=== PATIENT | male | born 1945 | race Caucasian/White ===

== ENCOUNTER 2018-08-31 19:12 | Inpatient (IN) ==
[2018-08-31] MEDS ORDERED: 0.9 % Sodium Chloride 1,000 ML IVC ONE (19:24)
--- NOTE | 2018-08-31 19:27 | Emergency Department Note ---
Disposition Clinical Impression: Altered mental status, Elevated troponin, Anemia, Febrile illness Disposition: Admitted As Inpatient Condition: Fair General Adult HPI - General Chief complaint: ED Altered Mental Status Stated complaint: confusion Time Seen by Provider: 08/31/18 19:18 Source: patient, family, EMS - History of Present Illness Pain Scale: 6 - Related Data Home Medications Medication Instructions Recorded Confirmed DiphenhydraMINE [Benadryl] 25 mg PO HS 08/31/18 08/31/18 Metformin HCl 1,000 mg PO BID 08/31/18 08/31/18 Pregabalin [Lyrica] 150 mg PO BID 08/31/18 08/31/18 RX: Ferrous Sulfate [Iron] 650 mg PO DAILY 08/31/18 08/31/18 RX: Finasteride [Proscar] 5 mg PO DAILY 08/31/18 08/31/18 RX: Levothyroxine [Synthroid] 75 mcg PO DAILY 08/31/18 08/31/18 RX: Loratadine [Allergy Relief] 10 mg PO DAILY 08/31/18 08/31/18 RX: Naproxen [Naprosyn] 250 mg PO Q12H PRN 08/31/18 08/31/18 RX: Omeprazole [PriLOSEC] 20 mg PO DAILY 08/31/18 08/31/18 RX: OxyCODONE/APAP 10/325 1 tab PO Q4H PRN 08/31/18 08/31/18 [Percocet 10/325 MG] RX: Simvastatin [Zocor] 20 mg PO HS 08/31/18 08/31/18 RX: predniSONE [PredniSONE] 5 mg PO BID 08/31/18 08/31/18 Allergies Allergy/AdvReac Type Severity Reaction Status Date / Time No Known Allergies Allergy Verified 08/31/18 19:22 Past Medical History - Past Medical History Medical history: Reports: cancer, other Psychiatric history: Reports: no psych history - Social History Smoking Status: Never smoker Alcohol use: Reports: none Drug use: Reports: none Physical Exam - General General appearance: alert, in no apparent distress Course Vital Signs Temperature 102.8 F H 08/31/18 19:14 Pulse Rate 97 08/31/18 19:14 Respiratory Rate 22 08/31/18 19:14 Blood Pressure 132/90 08/31/18 19:14 O2 Sat by Pulse Oximetry 100 08/31/18 19:14 Temperature 100.6 F H 08/31/18 20:40 Pulse Rate 82 08/31/18 22:25 Respiratory Rate 15 08/31/18 21:51 Blood Pressure 107/79 08/31/18 22:25 O2 Sat by Pulse Oximetry 99 08/31/18 21:51 Oxygen Delivery Oxygen Delivery Room Air Medical Decision Making - Lab Data Result diagrams: 08/31/18 19:21 08/31/18 19:21 Lab Results 08/31/18 08/31/18 08/31/18 Range/Units 19:21 19:21 19:21 WBC 13.4 H (4.3-11.1) K/mcL RBC 3.97 L (4.19-5.50) M/mcL Hgb 9.8 L (12.9-16.9) g/dL Hct 32.0 L (37.5-50.1) % MCV 80.6 L (83.0-100.0) fL MCH 24.7 L (28.0-33.3) pg MCHC 30.6 L (31.6-35.5) g/dL RDW 17.6 H (11.5-14.5) % Plt Count 418 H (140-400) K/mcL MPV 10.3 (9.4-12.4) fL Immature Gran % 0.5 (0-4) % Seg Neutrophils % 81.1 % Lymphocytes % 6.9 % Monocytes % 10.5 % Eosinophils % 0.6 % Basophils % 0.4 % Neutrophils # 10.9 H (1.6-8.9) K/mcL Lymphocytes # 0.9 (0.6-4.6) K/mcL Monocytes # 1.4 H (0.0-1.3) K/mcL Eosinophils # 0.1 (0.0-0.6) K/mcL Basophils # 0.1 (0.0-0.2) K/mcL Sodium 130 L (136-145) mEq/L Potassium 4.2 (3.5-5.1) mEq/L Chloride 93 L (98-107) mEq/L Carbon Dioxide 26 (23-29) mEq/L BUN 17 (8-23) mg/dL Creatinine 1.06 (0.70-1.30) mg/dL Est GFR ( Amer) > 60 (> 60) Est GFR (Non-Af Amer) > 60 (> 60) BUN/Creatinine Ratio 16 (6-26) Glucose 122 H (70-105) mg/dL Calculated Osmolality 273 L (280-300) Lactic Acid 1.2 (0.5-2.2) mmol/L Calcium 9.2 (8.6-10.3) mg/dL Total Bilirubin 0.4 (0.3-1.0) mg/dL Direct Bilirubin 0.0 (0.0-0.2) mg/dL Indirect Bilirubin 0.4 (0.0-1.2) mg/dL AST 18 (13-39) Units/L ALT 14 (7-52) Units/L Alkaline Phosphatase 110 H (34-104) Units/L Troponin I 0.04 H* (< 0.04) ng/mL Serum Total Protein 7.3 (6.4-8.9) g/dL Albumin 3.1 L (3.5-5.7) g/dL Globulin 4.2 H (2.4-3.5) g/dL Albumin/Globulin Ratio 0.7 L (1.1-2.2) TSH 4.305 (0.340-5.600) mcIU/mL Urine Color (Yellow) Urine Clarity (Clear) Urine pH (5.0-8.0) pH Units Ur Specific [place] (1.010-1.025) Urine Protein (Neg-Trace) mg/dL Urine Glucose (UA) (Normal) mg/dL Urine Ketones (Negative) mg/dL Urine Blood (Negative) Urine Nitrite (Negative) Urine Bilirubin (Negative) Urine Urobilinogen (Normal) mg/dL Ur Leukocyte Esterase (Negative) Urine Microscopic RBC (0-3) per hpf Urine Microscopic WBC (0-3) per hpf Ur Squamous Epith Cells (None-Few) per lpf Urine Bacteria (None-Few) per hpf Hyaline Casts (None-Few) per lpf Ur Culture Indicated? (NO) Stool Occult Bld Scrn (Negative) 08/31/18 08/31/18 Range/Units 20:03 21:00 WBC (4.3-11.1) K/mcL RBC (4.19-5.50) M/mcL Hgb (12.9-16.9) g/dL Hct (37.5-50.1) % MCV (83.0-100.0) fL MCH (28.0-33.3) pg MCHC (31.6-35.5) g/dL RDW (11.5-14.5) % Plt Count (140-400) K/mcL MPV (9.4-12.4) fL Immature Gran % (0-4) % Seg Neutrophils % % Lymphocytes % % Monocytes % % Eosinophils % % Basophils % % Neutrophils # (1.6-8.9) K/mcL Lymphocytes # (0.6-4.6) K/mcL Monocytes # (0.0-1.3) K/mcL Eosinophils # (0.0-0.6) K/mcL Basophils # (0.0-0.2) K/mcL Sodium (136-145) mEq/L Potassium (3.5-5.1) mEq/L Chloride (98-107) mEq/L Carbon Dioxide (23-29) mEq/L BUN (8-23) mg/dL Creatinine (0.70-1.30) mg/dL Est GFR ( Amer) (> 60) Est GFR (Non-Af Amer) (> 60) BUN/Creatinine Ratio (6-26) Glucose (70-105) mg/dL Calculated Osmolality (280-300) Lactic Acid (0.5-2.2) mmol/L Calcium (8.6-10.3) mg/dL Total Bilirubin (0.3-1.0) mg/dL Direct Bilirubin (0.0-0.2) mg/dL Indirect Bilirubin (0.0-1.2) mg/dL AST (13-39) Units/L ALT (7-52) Units/L Alkaline Phosphatase (34-104) Units/L Troponin I (< 0.04) ng/mL Serum Total Protein (6.4-8.9) g/dL Albumin (3.5-5.7) g/dL Globulin (2.4-3.5) g/dL Albumin/Globulin Ratio (1.1-2.2) TSH (0.340-5.600) mcIU/mL Urine Color Yellow (Yellow) Urine Clarity Cloudy A (Clear) Urine pH 7.0 (5.0-8.0) pH Units Ur Specific [place] 1.009 L (1.010-1.025) Urine Protein Negative (Neg-Trace) mg/dL Urine Glucose (UA) Normal (Normal) mg/dL Urine Ketones Negative (Negative) mg/dL Urine Blood Negative (Negative) Urine Nitrite Negative (Negative) Urine Bilirubin Negative (Negative) Urine Urobilinogen Normal (Normal) mg/dL Ur Leukocyte Esterase Negative (Negative) Urine Microscopic RBC 0-3 (0-3) per hpf Urine Microscopic WBC 0-3 (0-3) per hpf Ur Squamous Epith Cells None Seen (None-Few) per lpf Urine Bacteria None Seen (None-Few) per hpf Hyaline Casts None Seen (None-Few) per lpf Ur Culture Indicated? NO (NO) Stool Occult Bld Scrn Negative (Negative) Critical Care Time Critical Care Time: Yes Total Critical Care Time: 30 Attestation: The high probability of a clinically significant, sudden or life threatening det erioration of the [] system(s) required my full and direct attention, intervention and personal management. The aggregate critical care time was [] minutes. This time is in addition to time spent performing reported procedures but includes the following: [] Data Review and interpretation [] Patient assessment and monitoring of vital signs [] Documentation [] Medication orders and management Attestation Statement - Attestation Attestation: I examined this patient and my medical decision-making was reviewed with the Resident Physician. I agree with the documented findings, disposition and treatment plan as described except to the extent set forth below. Foyi-re-mhyi time provided Patient arrives by EMS from home. Additional history obtained from his son at bedside. The patient had a period of change in mentation. He is febrile upon arrival. He is alert and lucid. Sepsis workup initiated
--- NOTE | 2018-08-31 19:36 | Emergency Department Note ---
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 Original Note: Disposition Clinical Impression: Elevated troponin, Febrile illness Altered mental status Qualifiers: Altered mental status type: unspecified Qualified Code(s): R41.82 - Altered mental status, unspecified Anemia Qualifiers: Anemia type: unspecified type Qualified Code(s): D64.9 - Anemia, unspecified Disposition: Admitted As Inpatient Condition: Fair Referrals: NONE,PCP [Primary Care Provider] - Forms: ED Satisfaction Letter Time of Disposition: 20:59 General Adult HPI - General Chief complaint: ED Altered Mental Status Stated complaint: confusion Time Seen by Provider: 08/31/18 19:18 Source: patient, family, EMS Mode of arrival: EMS Limitations: no limitations Nursing Notes Reviewed: Yes Vital Signs Reviewed: Yes - History of Present Illness HPI Narrative: 72-year-old male with a history of malignancy on clinical trial at [facility] every other week for therapy presents for evaluation of confusion. Presents in the care of the son. Son describes a symptom as the patient acting confused but alert for proximally 2 hours prior to ED arrival. States the patient was having some shaking of his right hand that has since resolved. States that this lasted 2 hours does have a history of prior episodes in the past. Patient is not from around the area. Patient states that he felt hot and cold. Patient denies any chest pain cough upper respiratory symptoms. Patient denies any abdominal pain. No problems urinating. No rashes. Patient's been taking his medication as prescribed with no recent changes. Patient is on prednisone 5 mg daily. Patient as well as family are unaware of the exact etiology of the malignancy. Pain Scale: 6 - Related Data Allergies Allergy/AdvReac Type Severity Reaction Status Date / Time No Known Allergies Allergy Verified 08/31/18 19:22 All systems ED: reviewed and negative except as stated. Constitutional: Reports: fever Cardiovascular: Denies: chest pain Respiratory: Denies: cough, dyspnea Gastrointestinal: Denies: abdominal pain, nausea, vomiting Past Medical History - Past Medical History Attestation: Yes The following information was validated with the patient. Source: patient Medical history: Reports: cancer, other Psychiatric history: Reports: no psych history - Social History Smoking Status: Never smoker Alcohol use: Reports: none Drug use: Reports: none Physical Exam - General Limitations: no limitations General appearance: alert, in no apparent distress - Head Head exam: atraumatic, normocephalic, normal inspection - Eye Eye exam: Present: normal appearance, PERRL, EOMI. Absent: scleral icterus - ENT ENT exam: normal exam, mucous membranes dry - Neck Neck exam: Present: normal inspection - Chest Chest inspection: Present: normal inspection, symmetric chest wall rise - Respiratory Respiratory exam: Present: normal lung sounds bilaterally. Absent: respiratory distress - Cardiovascular Cardiovascular exam: Present: normal rhythm, tachycardia. Absent: systolic murmur - Abdominal Exam Abdominal exam: Present: soft, Non-Tender - Extremities Exam Extremities exam: Present: normal inspection, pedal edema (Significant asymmetric right-sided pitting edema. Son states been present for approximately 3 years with plans of amputation in the future.) - Back Exam Back exam: Present: normal inspection. Absent: tenderness - Neurological Exam Neurological exam: Present: alert, oriented X3, CN II-XII intact - Skin Skin exam: Present: warm, dry, intact, normal color. Absent: rash Course Course Narrative: Patient seen and examined. Patient will need an extended septic workup for concerns of infection given the abnormal vitals and fever. Patient's also immunocompromise with daily steroid use. Etiology of the patient's malignancy is unknown. Disposition will likely be admission. - Reevaluation(s) Reevaluation #1: Given the patient's possibility of immunocompromise with his cancer therapy. Pa tient will be covered for broad-spectrum antibiotics with concerns of infection in the setting of fever. Patient will be given antibiotics until culture negative. Attempted to gather records of the patient's past medical history. Time: 20:49 Reevaluation #2: Patient seen and examined. Patient's abnormal labs discussed at bedside. Patient denies any blood in his stool or dark tarry stools are states he is on iron. Patient on any blood thinners. Given the patient's abnormal vitals concerns for sepsis the patient will be admitted to the hospital service. Patient's alert and oriented confusion has resolved. Time: 20:56 Vital Signs Temperature 102.8 F H 08/31/18 19:14 Pulse Rate 97 08/31/18 19:14 Respiratory Rate 22 08/31/18 19:14 Blood Pressure 132/90 08/31/18 19:14 O2 Sat by Pulse Oximetry 100 08/31/18 19:14 Temperature 100.6 F H 08/31/18 20:40 Pulse Rate 99 08/31/18 20:39 Respiratory Rate 22 08/31/18 19:14 Blood Pressure 130/85 08/31/18 20:39 O2 Sat by Pulse Oximetry 98 08/31/18 20:39 Oxygen Delivery Oxygen Delivery Room Air Medical Decision Making - MDM Narrative Medical decision making narrative: 72-year-old male persists for evaluation of intermittent confusion that occurred earlier today. History provided via the son at bedside. Patient is alert and oriented and back to baseline currently. Son describes a 2 hour labs with the patient was alert but confused shaking his right arm. No rhythmic shaking her seizures noted. Patient did have abnormal vitals and concerns for sepsis with a fever. Patient had extensive evaluation for concerns of sepsis and immunocompromise given his history of malignancy. Patient is a known primary malignancy currently receiving therapy at [facility]. Patient had his therapy approximately week ago was scheduled therapy in the next week. Given the patient's fever and concerns were immunocompromise the patient was covered broad-spectrum antibiotics. Several abnormal labs with no prior comparison. Denying any blood in the stool or dark tarry stools. Patient does have an elevated troponin with no ST segment elevation. Given an aspirin. Patient will be admitted to hospital service for continued evaluated and monitoring. Another possible source of infection is the patient's right lower ext however the patient's son states that it is been that swollen and that appearance for approximately 3 years. - Lab Data Lab results reviewed: Yes I reviewed the patient's lab results. Result diagrams: 08/31/18 19:21 08/31/18 19:21 Lab Results 08/31/18 08/31/18 08/31/18 Range/Units 19:21 19:21 19:21 WBC 13.4 H (4.3-11.1) K/mcL RBC 3.97 L (4.19-5.50) M/mcL Hgb 9.8 L (12.9-16.9) g/dL Hct 32.0 L (37.5-50.1) % MCV 80.6 L (83.0-100.0) fL MCH 24.7 L (28.0-33.3) pg MCHC 30.6 L (31.6-35.5) g/dL RDW 17.6 H (11.5-14.5) % Plt Count 418 H (140-400) K/mcL MPV 10.3 (9.4-12.4) fL Immature Gran % 0.5 (0-4) % Seg Neutrophils % 81.1 % Lymphocytes % 6.9 % Monocytes % 10.5 % Eosinophils % 0.6 % Basophils % 0.4 % Neutrophils # 10.9 H (1.6-8.9) K/mcL Lymphocytes # 0.9 (0.6-4.6) K/mcL Monocytes # 1.4 H (0.0-1.3) K/mcL Eosinophils # 0.1 (0.0-0.6) K/mcL Basophils # 0.1 (0.0-0.2) K/mcL Sodium 130 L (136-145) mEq/L Potassium 4.2 (3.5-5.1) mEq/L Chloride 93 L (98-107) mEq/L Carbon Dioxide 26 (23-29) mEq/L BUN 17 (8-23) mg/dL Creatinine 1.06 (0.70-1.30) mg/dL Est GFR ( Amer) > 60 (> 60) Est GFR (Non-Af Amer) > 60 (> 60) BUN/Creatinine Ratio 16 (6-26) Glucose 122 H (70-105) mg/dL Calculated Osmolality 273 L (280-300) Lactic Acid 1.2 (0.5-2.2) mmol/L Calcium 9.2 (8.6-10.3) mg/dL Total Bilirubin 0.4 (0.3-1.0) mg/dL Direct Bilirubin 0.0 (0.0-0.2) mg/dL Indirect Bilirubin 0.4 (0.0-1.2) mg/dL AST 18 (13-39) Units/L ALT 14 (7-52) Units/L Alkaline Phosphatase 110 H (34-104) Units/L Troponin I 0.04 H* (< 0.04) ng/mL Serum Total Protein 7.3 (6.4-8.9) g/dL Albumin 3.1 L (3.5-5.7) g/dL Globulin 4.2 H (2.4-3.5) g/dL Albumin/Globulin Ratio 0.7 L (1.1-2.2) TSH 4.305 (0.340-5.600) mcIU/mL Urine Color (Yellow) Urine Clarity (Clear) Urine pH (5.0-8.0) pH Units Ur Specific [place] (1.010-1.025) Urine Protein (Neg-Trace) mg/dL Urine Glucose (UA) (Normal) mg/dL Urine Ketones (Negative) mg/dL Urine Blood (Negative) Urine Nitrite (Negative) Urine Bilirubin (Negative) Urine Urobilinogen (Normal) mg/dL Ur Leukocyte Esterase (Negative) Urine Microscopic RBC (0-3) per hpf Urine Microscopic WBC (0-3) per hpf Ur Squamous Epith Cells (None-Few) per lpf Urine Bacteria (None-Few) per hpf Hyaline Casts (None-Few) per lpf Ur Culture Indicated? (NO) 08/31/18 Range/Units 20:03 WBC (4.3-11.1) K/mcL RBC (4.19-5.50) M/mcL Hgb (12.9-16.9) g/dL Hct (37.5-50.1) % MCV (83.0-100.0) fL MCH (28.0-33.3) pg MCHC (31.6-35.5) g/dL RDW (11.5-14.5) % Plt Count (140-400) K/mcL MPV (9.4-12.4) fL Immature Gran % (0-4) % Seg Neutrophils % % Lymphocytes % % Monocytes % % Eosinophils % % Basophils % % Neutrophils # (1.6-8.9) K/mcL Lymphocytes # (0.6-4.6) K/mcL Monocytes # (0.0-1.3) K/mcL Eosinophils # (0.0-0.6) K/mcL Basophils # (0.0-0.2) K/mcL Sodium (136-145) mEq/L Potassium (3.5-5.1) mEq/L Chloride (98-107) mEq/L Carbon Dioxide (23-29) mEq/L BUN (8-23) mg/dL Creatinine (0.70-1.30) mg/dL Est GFR ( Amer) (> 60) Est GFR (Non-Af Amer) (> 60) BUN/Creatinine Ratio (6-26) Glucose (70-105) mg/dL Calculated Osmolality (280-300) Lactic Acid (0.5-2.2) mmol/L Calcium (8.6-10.3) mg/dL Total Bilirubin (0.3-1.0) mg/dL Direct Bilirubin (0.0-0.2) mg/dL Indirect Bilirubin (0.0-1.2) mg/dL AST (13-39) Units/L ALT (7-52) Units/L Alkaline Phosphatase (34-104) Units/L Troponin I (< 0.04) ng/mL Serum Total Protein (6.4-8.9) g/dL Albumin (3.5-5.7) g/dL Globulin (2.4-3.5) g/dL Albumin/Globulin Ratio (1.1-2.2) TSH (0.340-5.600) mcIU/mL Urine Color Yellow (Yellow) Urine Clarity Cloudy A (Clear) Urine pH 7.0 (5.0-8.0) pH Units Ur Specific [place] 1.009 L (1.010-1.025) Urine Protein Negative (Neg-Trace) mg/dL Urine Glucose (UA) Normal (Normal) mg/dL Urine Ketones Negative (Negative) mg/dL Urine Blood Negative (Negative) Urine Nitrite Negative (Negative) Urine Bilirubin Negative (Negative) Urine Urobilinogen Normal (Normal) mg/dL Ur Leukocyte Esterase Negative (Negative) Urine Microscopic RBC 0-3 (0-3) per hpf Urine Microscopic WBC 0-3 (0-3) per hpf Ur Squamous Epith Cells None Seen (None-Few) per lpf Urine Bacteria None Seen (None-Few) per hpf Hyaline Casts None Seen (None-Few) per lpf Ur Culture Indicated? NO (NO) - Radiology Data Radiology results reviewed: Yes I reviewed the patient's radiology results. Head CT 08/31/18 19:33 IMPRESSION: No acute intracranial abnormality. D/ / Hieu Mcknight MD / Hieu Mcknight MD Interpreting Provider: Hieu Mcknight MD Chest X-Ray 08/31/18 19:25 IMPRESSION: 1. 2.2 cm right parahilar nodule and questionable smaller left parahilar nodules. Recommend further evaluation with CT chest. 2. Mild nonspecific right infrahilar hazy opacities. D/ / Adam Penaloza MD / Adam Penaloza MD Interpreting Provider: Adam Penaloza MD Head CT 08/31/18 19:33 IMPRESSION: No acute intracranial abnormality. D/ / Hieu Mcknight MD / Hieu Mcknight MD Interpreting Provider: Hieu Mcknight MD - EKG Data EKG #1 EKG attestation: Yes I reviewed and interpreted this EKG. EKG shows normal: sinus rhythm Rate: normal Rhythm: NSR [place]/QRS: normal Interpretation: no acute changes, nonspecific ST-T wave changes S.Tara.Nayely - Shay Situation: Demographics Background: Presenting Complaint Assessment: Vital Signs, Course and respsone to treatment, Patient/Family Expectation Recommendation: Barrier(s) to disposition, Recommendation based on pending st udies, treatments, or consults S.B.AClementine Report Given to: Dr. Barbie Day Repor Time: 21:10
[2018-08-31 19:45] LABS: Basophils # 0.1 K/mcL (0.0-0.2); Basophils % 0.4 %; Eosinophils # 0.1 K/mcL (0.0-0.6); Eosinophils % 0.6 %; Hemoglobin 9.8 g/dL (12.9-16.9); Immature Granulocytes % 0.5 % (0-4); Lymphocytes # 0.9 K/mcL (0.6-4.6); Lymphocytes % 6.9 %; Mean Corpuscular HGB Conc 30.6 g/dL (31.6-35.5); Mean Corpuscular Hemoglobin 24.7 pg (28.0-33.3); Mean Corpuscular Volume 80.6 fL (83.0-100.0); Mean Platelet Volume 10.3 fL (9.4-12.4); Monocytes # 1.4 K/mcL (0.0-1.3); Monocytes % 10.5 %; Neutrophils # 10.9 K/mcL (1.6-8.9); Platelet Count 418 K/mcL (140-400); Red Blood Count 3.97 M/mcL (4.19-5.50); Red Cell Distribution Width 17.6 % (11.5-14.5); Segmented Neutrophils % 81.1 %
[2018-08-31 20:02] LABS: Alanine Aminotransferase 14 Units/L (7-52); Albumin 3.1 g/dL (3.5-5.7); Albumin/Globulin Ratio 0.7 (1.1-2.2); Alkaline Phosphatase 110 Units/L (34-104); Aspartate Amino Transferase 18 Units/L (13-39); BUN/Creatinine Ratio 16 (6-26); Bilirubin,Indirect 0.4 mg/dL (0.0-1.2); Bilirubin,Total 0.4 mg/dL (0.3-1.0); Blood Urea Nitrogen 17 mg/dL (8-23); Calcium 9.2 mg/dL (8.6-10.3); Carbon Dioxide 26 mEq/L (23-29); Chloride 93 mEq/L (98-107); Globulin 4.2 g/dL (2.4-3.5); Glucose 122 mg/dL (70-105); Osmolality,Calculated 273 (280-300); Potassium 4.2 mEq/L (3.5-5.1); Sodium 130 mEq/L (136-145); Total Protein 7.3 g/dL (6.4-8.9); eGFR For Non-African Americans > 60 (> 60)
[2018-08-31 20:06] LABS: Troponin I 0.04 ng/mL (< 0.04)
[2018-08-31 20:12] LABS: Bilirubin,Urine Negative (Negative); Blood,Urine Negative (Negative); Clarity,Urine Cloudy (Clear); Color,Urine Yellow (Yellow); Glucose,Urine (UA) Normal (Normal); Ketones,Urine Negative (Negative); Leukocyte Esterase,Urine Negative (Negative); Nitrite,Urine Negative (Negative); Protein,Urine Negative (Neg-Trace); Specific Gravity,Urine 1.009 (1.010-1.025); Urobilinogen,Urine Normal (Normal)
[2018-08-31 20:15] LABS: Bacteria,Urine None Seen per hpf (None-Few); Hyaline Casts,Urine None Seen per lpf (None-Few); RBC,Urine 0-3 per hpf (0-3); Squamous Epithelial Cell,Urine None Seen per lpf (None-Few); WBC,Urine 0-3 per hpf (0-3)
[2018-08-31 20:16] LABS: Thyroid Stimulating Hormone 4.305 mcIU/mL (0.340-5.600)
[2018-08-31] MEDS ORDERED: *HR* OxyCODONE Immed Rel 5 MG TABLET PO ONE (20:30)
[2018-08-31] MEDS ORDERED: Aspirin 325 MG TABLET PO ONE (20:48)
[2018-08-31] MEDS ORDERED: Piperacillin/Tazobactam 3.375 GM in 0.9 % Sodium Chloride Mini Bag 100 ML IVPB ONE (20:48)
[2018-08-31] MEDS ORDERED: Isovue-370 500 ML INFUS..BTL IV ONE (20:58)
--- NOTE | 2018-08-31 22:22 | Internal Med History&Physical ---
Date of Encounter: 08/31/18 Time of Encounter: 22:09 Internal Medicine - H&P: HPI Chief complaint: AMS Admitted From: Home Plans for Post Hospital Care: Home History of present illness: Mert Freed is a 72-year-old man with an active malignancy currently undergoing a clinical trial at [facility] for chemotherapy. As per his son he was diagnosed about 6-7 years ago when living in [place] and in this past year was told that there were no further therapies for him but subsequently was able to be enrolled in this new trial. The son cannot specify what type of cancer he has but when the patient is asked specifically about lymphoma he says this is what it is. The patient is brought in by his son today with the complaint of confusion that started approximately 2 hours prior to arrival and generalized body shaking. The son stated that this happened about 3-4 months ago while living in [place] as he noticed he was incoherent on the phone and subsequently flew over to see him. He did not seek medical attention at the time but the son was able to put him back on his regular routine of medications and he gradually improved in the next 24 hours. Today the son says he was in his regular state of health up until dinnertime at which time the patient complained of being very cold and having chills and as time progressed he was notably more confused and with reduced responsiveness. On arrival to the ER he was febrile at 102.8F but the rest of his vitals were normal. Lab work showed a hemoglobin of 9.8, sodium 130, chloride 93, creatinine 1.06 and troponin of 0.04. We have no prior studies to compare with. The patient was given 1 L of normal saline, aspirin and acetaminophen. On reassessment his mental status had significantly improved and he was now back to baseline and conversant. The patient denies any abdominal pain, nausea, vomiting, headache, chest pain, diarrhea or dysuria. He states that he gets chemotherapy and [place] every 2 weeks and does not have an indwelling port. He is unable to explain why he felt the way he did earlier but does acknowledge being told in the recent past that his sodium was low; it was attributed to excessive water intake which she since decreased but there was no obvious change right now he feels dehydrated and thirsty. UA was unremarkable, head CT nonrevealing, chest x-ray showing a 2 cm right parahilar nodule which the patient states being monitored at his cancer center. Follow-up CT scan was contrast showed other nodules consistent with metastatic disease. Of note the patient also has a chronic issue with his right knee having undergone 2 knee replacements. It is now chronically swollen with erythema and other color changes as well as hyperkeratosis. He states he is scheduled for an [id number] amputation in [place] within the month. At this time it is unclear why the patient had a transient change in mental status or why he is febrile but has been started on empiric antibiotics given his high-risk state. Admit for further care. 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 - Social History Smoking Status: Never smoker Alcohol use: none Drug use: none Internal Medicine - H&P: Meds DiphenhydraMINE [Benadryl] 25 mg PO HS 08/31/18 [History] Ferrous Sulfate [Iron] 650 mg PO DAILY 08/31/18 [History] Finasteride [Proscar] 5 mg PO DAILY 08/31/18 [History] Levothyroxine [Synthroid] 75 mcg PO DAILY 08/31/18 [History] Loratadine [Allergy Relief] 10 mg PO DAILY 08/31/18 [History] Metformin HCl 1,000 mg PO BID 08/31/18 [History] Naproxen [Naprosyn] 250 mg PO Q12H PRN 08/31/18 [History] Omeprazole [PriLOSEC] 20 mg PO DAILY 08/31/18 [History] OxyCODONE/APAP 10/325 [Percocet 10/325 MG] 1 tab PO Q4H PRN 08/31/18 [History] Pregabalin [Lyrica] 150 mg PO BID 08/31/18 [History] Simvastatin [Zocor] 20 mg PO HS 08/31/18 [History] predniSONE [PredniSONE] 5 mg PO BID 08/31/18 [History] Allergy/AdvReac Type Severity Reaction Status Date / Time No Known Allergies Allergy Verified 08/31/18 19:22 All Systems PM: A 10-system review of systems was performed and is negative for pertinent findings except as documented above in the HPI. Family history reviewed and found noncontributory. - Constitutional Vitals: Temp Pulse Resp BP Pulse Ox 100.6 F H 85 15 120/73 99 08/31/18 20:40 08/31/18 21:51 08/31/18 21:51 08/31/18 21:51 08/31/18 21:51 Exam: Vitals: Reviewed General: Well-developed male lying comfortably in bed in no acute distress. Skin: Pale, slightly diaphoretic, warm. HEENT: Dry mucous membranes. + conjunctivae pallor. Oropharynx without exudate. Neck: Surgically resected right cervical lymph nodes with no inflammatory signs present but tenderness on palpation in the area. Chest: Normal thoracic expansion. Normal breath sounds. Clear to auscultation. Heart: Normal S1 & S2; rhythmic. No rubs or murmurs. Abdomen: Non-distended, soft and non-tender to palpation. No peritoneal reaction. Extremities: Right knee swollen, tender to touch, not hot, with hyperketatoric skin growths on the posterior aspect. Neurological: Awake, alert and oriented to person, place and time. No focal deficits. Psych: Affect appropriate. Internal Med - H&P Results - Labs CBC & Chem 7: 08/31/18 19:21 08/31/18 19:21 Labs: Short CBC 08/31/18 Range/Units 19:21 WBC 13.4 H (4.3-11.1) K/mcL Hgb 9.8 L (12.9-16.9) g/dL Hct 32.0 L (37.5-50.1) % Plt Count 418 H (140-400) K/mcL Neutrophils # 10.9 H (1.6-8.9) K/mcL BMP 08/31/18 19:21 Sodium 130 L Potassium 4.2 Chloride 93 L Carbon Dioxide 26 BUN 17 Creatinine 1.06 Glucose 122 H Calcium 9.2 Cardiac Enzymes 08/31/18 Range/Units 19:21 Troponin I 0.04 H* (< 0.04) ng/mL Liver Function 08/31/18 Range/Units 19:21 Total Bilirubin 0.4 (0.3-1.0) mg/dL Direct Bilirubin 0.0 (0.0-0.2) mg/dL AST 18 (13-39) Units/L ALT 14 (7-52) Units/L Alkaline Phosphatase 110 H (34-104) Units/L Albumin 3.1 L (3.5-5.7) g/dL Urine 08/31/18 Range/Units 20:03 Urine Color Yellow (Yellow) Urine Clarity Cloudy A (Clear) Urine pH 7.0 (5.0-8.0) pH Units Ur Specific [place] 1.009 L (1.010-1.025) Urine Protein Negative (Neg-Trace) mg/dL Urine Glucose (UA) Normal (Normal) mg/dL - Impressions ITS Impressions Chest X-Ray 08/31/18 19:25 IMPRESSION: 1. 2.2 cm right parahilar nodule and questionable smaller left parahilar nodules. Recommend further evaluation with CT chest. 2. Mild nonspecific right infrahilar hazy opacities. D/ / Adam Penaloza MD / Adam Penaloza MD Interpreting Provider: Adam Penaloza MD Head CT 08/31/18 19:33 IMPRESSION: No acute intracranial abnormality. D/ / Hieu Mcknight MD / Hieu Mcknight MD Interpreting Provider: Hieu Mcknight MD Chest CT 08/31/18 20:58 IMPRESSION: Trace bilateral pleural effusions, right larger than left. No acute lung parenchymal abnormalities. Multiple bilateral pulmonary nodules compatible with metastatic disease. Cardiomegaly with moderate pericardial effusion. 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 Atherosclerosis to include coronary artery disease. D/ : / 08/31/2018 21:48:50 Yoel Chavez MD / shemar Interpreting Provider: Yoel Chavez MD - Assessment and plan (1) Altered mental status Current Visit: Yes Status: Acute Assessment and plan: Unclear etiology; transient. Concern for sepsis given his fever and elevated WBC. No source identified. Mental status back to baseline with fluids. Will continue to monitor. May require brain MRI as this is the second episode over a few months. Qualifiers: Altered mental status type: transient alteration of awareness Qualified Code(s): R40.4 - Transient alteration of awareness (2) Sepsis Current Visit: Yes Status: Acute Assessment and plan: As evidenced by fever and leukopcytosis. No clear etiology identified. Blood cultures drawn, continue empiric abx and fluid resuscitation. UA clear. CXR without consolidation. No meningeal signs present. No pressure ulcer. No indwelling port. If he remains febrile, will scan his knee for a possible source given the current changes even though chronic and scheduled for amputation. Could also be malignancy related. Qualifiers: Sepsis type: sepsis due to unspecified organism Qualified Code(s): A41.9 - Sepsis, unspecified organism (3) Malignancy Current Visit: Yes Status: Acute Assessment and plan: Suspected to be lymphoma based on conversation with the patient but yet to be verified. Will obtain records from [facility] if needed. Next chemo session scheduled for 09/06/18. Known to be metastatic already as per son. (4) Electrolyte abnormality Current Visit: Yes Status: Acute Assessment and plan: Hyponatremic and hypochloremic with clinical evidence of dehydration. Will send urine sodium and osm for better evaluation as well as assess response to saline resuscitation. SIADH should also be under consideration if not responsive to fluids given his malignancy, lung disease and yet to be confirmed plethora of medications. Will also check uric acid and tsh. (5) Anemia Current Visit: Yes Status: Acute Assessment and plan: Likely related to chronic disease. Unknown baseline. Stool occult negative. Continue iron supplementation. Qualifiers: Anemia type: unspecified type Qualified Code(s): D64.9 - Anemia, unspecified (6) Elevated troponin Current Visit: Yes Status: Acute Assessment and plan: Likely in the setting of sepsis. No chest pain or ischemic electrocardiographic changes. Will monitor. (7) DVT prophylaxis Current Visit: Yes Status: Acute Assessment and plan: SubQ heparin ordered. - Time Spent With Patient Total time spent is greater than 50% in coordination of care (as documented) at patient's floor/unit and/or counseling patient: Greater than 35 minutes
[2018-09-01] MEDS: *HR* OxyCODONE/APAP 10/325 TABLET PO PRN ×2 (00:29→09:40)
[2018-09-01] MEDS: *HR* Heparin 5,000 UNIT/ML VIAL SQ SCH ×4 (00:29→21:57)
[2018-09-01 01:19] LABS: Basophils % 0.4 %; Eosinophils # 0.1 K/mcL (0.0-0.6); Eosinophils % 0.6 %; Hemoglobin 8.6 g/dL (12.9-16.9); Immature Granulocytes % 0.5 % (0-4); Lymphocytes # 0.7 K/mcL (0.6-4.6); Lymphocytes % 6.8 %; Mean Corpuscular HGB Conc 31.9 g/dL (31.6-35.5); Mean Corpuscular Hemoglobin 25.1 pg (28.0-33.3); Mean Corpuscular Volume 78.9 fL (83.0-100.0); Mean Platelet Volume 10.1 fL (9.4-12.4); Monocytes # 1.2 K/mcL (0.0-1.3); Monocytes % 11.4 %; Neutrophils # 8.4 K/mcL (1.6-8.9); Platelet Count 307 K/mcL (140-400); Red Blood Count 3.42 M/mcL (4.19-5.50); Red Cell Distribution Width 17.6 % (11.5-14.5); Segmented Neutrophils % 80.3 %
[2018-09-01 01:38] LABS: BUN/Creatinine Ratio 16 (6-26); Blood Urea Nitrogen 16 mg/dL (8-23); Calcium 8.5 mg/dL (8.6-10.3); Carbon Dioxide 26 mEq/L (23-29); Chloride 94 mEq/L (98-107); Glucose 164 mg/dL (70-105); Osmolality,Calculated 271 (280-300); Sodium 128 mEq/L (136-145); eGFR For Non-African Americans > 60 (> 60)
--- NOTE | 2018-09-01 01:45 | Event Note ---
Date of Encounter: 09/01/18 Time of Encounter: 01:45 Repeat labs obtained showing normalization in leukocyte which could mean he was hemoconcentrated to begin with. While the patients chloride improved minimally, his sodium worsened with fluids. Will hold off on giving more saline than was given in the ER. Will benefit from nephrology consultation if it continues to worsen. Check uric acid and TSH.
[2018-09-01 04:15] LABS: BUN/Creatinine Ratio 17 (6-26); Blood Urea Nitrogen 16 mg/dL (8-23); Calcium 8.5 mg/dL (8.6-10.3); Carbon Dioxide 27 mEq/L (23-29); Chloride 96 mEq/L (98-107); Glucose 113 mg/dL (70-105); Osmolality,Calculated 272 (280-300); Sodium 130 mEq/L (136-145); Uric Acid 4.2 mg/dL (2.3-7.6); eGFR For Non-African Americans > 60 (> 60)
[2018-09-01] MEDS ORDERED: D5% in Water 1,000 ML IVC PRN (06:27)
[2018-09-01] MEDS ORDERED: *HR* Dextrose 50 % in Water (Syg) 50 ML SYRINGE IVP PRN (06:27)
[2018-09-01] MEDS ORDERED: Dextrose Gel 15 GM/37.5 ML TUBE PO PRN ×2 (06:27)
[2018-09-01] MEDS: Piperacillin/Tazobactam 3.375 GM in 0.9 % Sodium Chloride Mini Bag 100 ML IVPB SCH ×3 (06:58→21:58)
[2018-09-01] MEDS: Insulin LISPRO 300 UNITS/3 ML VIAL SQ SCH ×4 (07:26→21:58)
[2018-09-01] MEDS: Pregabalin 75 MG CAPSULE PO SCH ×2 (09:40→21:57)
[2018-09-01] MEDS: predniSONE 5 MG TABLET PO SCH ×2 (09:40→21:55)
[2018-09-01] MEDS: Finasteride 5 MG TABLET PO SCH (09:44)
[2018-09-01] MEDS: Loratadine 10 MG TABLET PO SCH (09:44)
--- NOTE | 2018-09-01 09:47 | Internal Med Progress Note ---
<Stefano Richmond - Last Filed: 09/01/18 17:01> Hospitalist Progress Note - Encounter Date of Encounter: 09/01/18 Time of Encounter: 08:30 - Subjective Interval History: Patient was seen with son at bedside. Son gave most of the HPI today in relation to his father's clinical status. Son says patient's mental status was not at baseline this morning when he first arrived. Patient is confused today with decreased responsiveness and has diffuse body shaking. Son explains patient is in severe pain which he assumes is coming from his right knee. Son says he doesn't think his father is getting enough pain medication and that he believes his father wet himself this morning. Patient unresponsive to majority of review of systems. - Exam Vitals: Temp Pulse Resp BP Pulse Ox 99.3 F 98 18 164/100 94 09/01/18 07:08 09/01/18 07:08 09/01/18 07:08 09/01/18 07:08 09/01/18 03:00 Exam: Vitals: Reviewed General: Patient is in moderate distress and shaking. Skin: Pale, slightly diaphoretic, warm. HEENT: Dry mucous membranes. + conjunctivae pallor. Nystagmus present. Neck: Surgically resected right cervical lymph nodes with no inflammatory signs present. Chest: Normal thoracic expansion. Normal breath sounds. Clear to auscultation. Heart: Normal S1 & S2; rhythmic. No rubs or murmurs. Abdomen: Non-distended, soft and non-tender to palpation. No peritoneal reaction. Extremities: Right knee swollen, tender to touch, not hot, with hyperkeratosis. Neurological: Awake, oriented to person but not to time or place. - Assessment and Plan (1) Altered mental status Current Visit: Yes Status: Acute Assessment and Plan: Unclear etiology; transient. No source of infection identified, patient no longer meets SIRS criteria. Mental status back to baseline with fluids yesterday but patient confused today and not very responsive. Son mentioned that patient was having altered mental status with shaking and did not remember episodes On exam patient has moments of decreased responsiveness but then becomes alert and does not remember these episodes, also shaking This history and exam findings are suspicious for seizure activity or other neurologic activity Will continue to monitor. Brain MRI, EEG ordered, neurology consulted. (2) Sepsis Current Visit: Yes Status: Acute Assessment and Plan: Patient presented with fever and leukocytosis. No clear etiology identified. Blood cultures drawn, empiric abx and fluid resuscitation started yesterday. UA clear. CXR without consolidation. No meningeal signs present. No pressure ulcer. No indwelling port. Right knee remains possible source of infection, CT demonstrated likely hematoma at myotendinous junction of sartorius orthopedic surgery has been consulted to evaluate for possible aspiration and analysis Patient is also involved in experimental chemotherapy trial for lymphoma. This remains possible etiology for clinical picture. Patient afebrile today without leukocytosis. Blood cultures pending. Continue empiric antibiotics. 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 Patient currently in chemo as described above. Will obtain records from [facility] if needed. Next chemo session scheduled for 09/06/18. (4) Electrolyte abnormality Current Visit: Yes Status: Acute Assessment and Plan: Hyponatremic and hypochloremic with clinical evidence of dehydration on admission. Urine sodium 89.6 and osm 374. SIADH should also be under consideration if not responsive to fluids given his malignancy. Uric acid 4.2, tsh 4.3 . 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 Will continue to monitor and address as neccessary. (5) Anemia Current Visit: Yes Status: Acute Assessment and Plan: Differential includes hematoma of thigh or chronic disease. Hgb 8.6 today. Unknown baseline. Stool occult negative. No other signs of active bleeding. Patient is not anticoagulated other than SubQ heparin for DVT propylaxis orthopedics is consulted to address hematoma, We will continue to monitor hemoglobin and replace as necessary Continue iron supplementation. (6) Elevated troponin Current Visit: Yes Status: Acute Assessment and Plan: Likely in the setting of SIRS upon admission. No chest pain or ischemic elect rocardiographic changes at admission or today. Elevated tropinin has resolved. Will continue to monitor. (7) DVT prophylaxis Current Visit: Yes Status: Acute Assessment and Plan: continue SubQ Heparin. (8) Right knee pain Current Visit: Yes Status: Chronic Assessment and Plan: Patient has history of chronic knee pain He had a right knee replacement in the past He was then found to have a tumor in the right knee that was surgically removed and irratiated the patient afterwards had another knee replacement due to repeated knee infections and radiation damage. Due to repeated infections and radiation changes the patient is scheduled to have above the knee amputation at [facility] this month Due to pain and swelling the knee was imaged tis admission CT reveiled likely hematoma at myotendinous juncton at the sartorius Orthopedics was consulted for possible aspiratio analysis. (9) Bullous pemphigoid Current Visit: Yes Status: Chronic Assessment and Plan: Pysician managing patient;s chemotherapy reveiled patient has history of bullous pemphigoid He takes 5 mg predisone daily and has not had any recent lesions lesions in the past have appeared in the right knee and in the mouth after intubation This is one of the factors contributing upcoming AKA - Time Spent with Patient Total time spent is greater than 50% in coordination of care (as documented) at patient's floor/unit and/or counseling patient: Internal Medicine: Result - Labs CBC & Chem 7: 09/01/18 01:03 09/01/18 03:26 Labs: Short CBC 08/31/18 09/01/18 Range/Units 19:21 01:03 WBC 13.4 H 10.4 (4.3-11.1) K/mcL Hgb 9.8 L 8.6 L (12.9-16.9) g/dL Hct 32.0 L 27.0 L (37.5-50.1) % Plt Count 418 H 307 (140-400) K/mcL Neutrophils # 10.9 H 8.4 (1.6-8.9) K/mcL BMP 08/31/18 09/01/18 09/01/18 19:21 01:03 03:26 Sodium 130 L 128 L 130 L Potassium 4.2 4.0 4.0 Chloride 93 L 94 L 96 L Carbon Dioxide 26 26 27 BUN 17 16 16 Creatinine 1.06 1.02 0.96 Glucose 122 H 164 H 113 H Calcium 9.2 8.5 L 8.5 L Cardiac Enzymes 08/31/18 09/01/18 Range/Units 19:21 01:03 Troponin I 0.04 H* < 0.03 (< 0.04) ng/mL Liver Function 08/31/18 Range/Units 19:21 Total Bilirubin 0.4 (0.3-1.0) mg/dL Direct Bilirubin 0.0 (0.0-0.2) mg/dL AST 18 (13-39) Units/L ALT 14 (7-52) Units/L Alkaline Phosphatase 110 H (34-104) Units/L Albumin 3.1 L (3.5-5.7) g/dL Urine 08/31/18 Range/Units 20:03 Urine Color Yellow (Yellow) Urine Clarity Cloudy A (Clear) Urine pH 7.0 (5.0-8.0) pH Units Ur Specific [place] 1.009 L (1.010-1.025) Urine Protein Negative (Neg-Trace) mg/dL Urine Glucose (UA) Normal (Normal) mg/dL - Impressions Impressions Chest X-Ray 08/31/18 19:25 IMPRESSION: 1. 2.2 cm right parahilar nodule and questionable smaller left parahilar nodules. Recommend further evaluation with CT chest. 2. Mild nonspecific right infrahilar hazy opacities. D/ / Adam Penaloza MD / Adam Penaloza MD Interpreting Provider: Adam Penaloza MD Head CT 08/31/18 19:33 IMPRESSION: No acute intracranial abnormality. D/ / Hieu Mcknight MD / Hieu Mcknight MD Interpreting Provider: Hieu Mcknight MD Chest CT 08/31/18 20:58 IMPRESSION: Trace bilateral pleural effusions, right larger than left. No acute lung parenchymal abnormalities. Multiple bilateral pulmonary nodules compatible with metastatic disease. Cardiomegaly with moderate pericardial effusion. 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 Atherosclerosis to include coronary artery disease. D/ : / 08/31/2018 21:48:50 Yoel Chavez MD / shemar Interpreting Provider: Yoel Chavez MD Consult Discharge Plan - Plan Referrals: Aamir Wilkinson DO [Partnered Physician] - 09/09/18 9:30 am <Kentrell Roman - Last Filed: 09/01/18 17:45> Hospitalist Progress Note - Encounter Date of Encounter: 09/01/18 - Exam Vitals: Temp Pulse Resp BP Pulse Ox 98.1 F 81 19 103/62 97 09/01/18 11:30 09/01/18 11:30 09/01/18 11:30 09/01/18 11:30 09/01/18 11:30 - Assessment and Plan (1) Acute metabolic encephalopathy Current Visit: Yes Status: Acute (2) Altered mental status Current Visit: Yes Status: Acute (3) Elevated troponin Current Visit: Yes Status: Acute (4) Anemia Current Visit: Yes Status: Suspected (5) Malignancy Current Visit: Yes Status: Acute (6) DVT prophylaxis Current Visit: Yes Status: Acute (7) Electrolyte abnormality Current Visit: Yes Status: Acute (8) Sepsis Current Visit: Yes Status: Acute (9) Right knee pain Current Visit: Yes Status: Chronic (10) Bullous pemphigoid Current Visit: Yes Status: Chronic - Time Spent with Patient Total time spent is greater than 50% in coordination of care (as documented) at patient's floor/unit and/or counseling patient: Internal Medicine: Result - Labs CBC & Chem 7: 09/01/18 01:03 09/01/18 03:26 Labs: Short CBC 08/31/18 09/01/18 Range/Units 19:21 01:03 WBC 13.4 H 10.4 (4.3-11.1) K/mcL Hgb 9.8 L 8.6 L (12.9-16.9) g/dL Hct 32.0 L 27.0 L (37.5-50.1) % Plt Count 418 H 307 (140-400) K/mcL Neutrophils # 10.9 H 8.4 (1.6-8.9) K/mcL BMP 08/31/18 09/01/18 09/01/18 19:21 01:03 03:26 Sodium 130 L 128 L 130 L Potassium 4.2 4.0 4.0 Chloride 93 L 94 L 96 L Carbon Dioxide 26 26 27 BUN 17 16 16 Creatinine 1.06 1.02 0.96 Glucose 122 H 164 H 113 H Calcium 9.2 8.5 L 8.5 L Cardiac Enzymes 08/31/18 09/01/18 Range/Units 19:21 01:03 Troponin I 0.04 H* < 0.03 (< 0.04) ng/mL Liver Function 08/31/18 Range/Units 19:21 Total Bilirubin 0.4 (0.3-1.0) mg/dL Direct Bilirubin 0.0 (0.0-0.2) mg/dL AST 18 (13-39) Units/L ALT 14 (7-52) Units/L Alkaline Phosphatase 110 H (34-104) Units/L Albumin 3.1 L (3.5-5.7) g/dL Urine 08/31/18 Range/Units 20:03 Urine Color Yellow (Yellow) Urine Clarity Cloudy A (Clear) Urine pH 7.0 (5.0-8.0) pH Units Ur Specific [place] 1.009 L (1.010-1.025) Urine Protein Negative (Neg-Trace) mg/dL Urine Glucose (UA) Normal (Normal) mg/dL - Impressions Impressions Chest X-Ray 08/31/18 19:25 IMPRESSION: 1. 2.2 cm right parahilar nodule and questionable smaller left parahilar nodules. Recommend further evaluation with CT chest. 2. Mild nonspecific right infrahilar hazy opacities. D/ / Adam Penaloza MD / Adam Penaloza MD Interpreting Provider: Adam Penaloza MD Head CT 08/31/18 19:33 IMPRESSION: No acute intracranial abnormality. D/ / Hieu Mcknight MD / Hieu Mcknight MD Interpreting Provider: Hieu Mcknight MD Chest CT 08/31/18 20:58 IMPRESSION: Trace bilateral pleural effusions, right larger than left. No acute lung parenchymal abnormalities. Multiple bilateral pulmonary nodules compatible with metastatic disease. Cardiomegaly with moderate pericardial effusion. 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 Atherosclerosis to include coronary artery disease. D/ / 08/31/2018 21:48:50 Yoel Chavez MD / shemar Interpreting Provider: Yoel Chavez MD Brain MRI 09/01/18 10:21 IMPRESSION: Mild small vessel ischemic changes bilaterally. A few small prior infarcts are noted, as described. No acute infarct or hemorrhage. No mass. D/ / Michael London / Michael London Interpreting Provider: Michael London Knee CT 09/01/18 10:21 IMPRESSION: Large hyperdense collection measuring 5.2 x 6.1 x 7.6 cm in size likely within the distal sartorius myotendinous junction. This may represent a large intramuscular hematoma from muscle tear. Limited visualization secondary to extensive beam hardening artifact. Slight irregularity of the cortex of the posteromedial aspect of the medial tibial plateau may represent a subacute fracture. This is in the region of the large soft tissue collection as well. However, this is not well evaluated due to beam hardening artifact. Total knee arthroplasty without definite evidence of periprosthetic lucency to suggest loosening or infection. No evidence of joint effusion. Extensive periarticular subcutaneous edema and skin thickening, nonspecific. D/ / 09/01/2018 12:13:54 Christopher Hall MD / Fátima Sam Interpreting Provider: Christopher Hall MD - Attending Attestation The history, physical exam, and medical decision making was performed by the medical student either while I was physically present and actively involved or I personally re-performed the exam and medical decision making. I have verified the accuracy of the medical student's documentation with regards to the history, physical exam findings, and medical decision making on 09/01/18. Mr Freed is currently in observation for sepsis with unknown source and acute encephalopathy. He remains moderate to high risk due to potential for worsening clinical status. Mr Freed seems somewhat confused. His son does not feel he is at baseline mentally. He is having episodes of nystagmus. He is now afebrile though was febrile on admit. Cultures negative thus far. He follows at [facility] ([facility]) for cancer treatment. Exam alert Comfortable Mucus membranes dry Heart not tachy now No wheeze abd soft R knee with swelling and pain. Episodes of "unresponsive" - eyes drift to L and then start horizontal nystagmus. He awakens quickly but seems "slow" I/P 1. Acute metabolic encephalopathy - check EEG. Neuro eval. MRI of head. 2. Sepsis - ? knee as source. CT ordered for further eval. May need ortho consult. 3. Head and neck cancer - will update [facility]. Further diagnoses and plan as above. <Stefano Richmond - Last Filed: 09/01/18 17:01> (1) Altered mental status Qualifiers: Altered mental status type: transient alteration of awareness Qualified Code(s): R40.4 - Transient alteration of awareness (2) Sepsis Qualifiers: Sepsis type: sepsis due to unspecified organism Qualified Code(s): A41.9 - Sepsis, unspecified organism (5) Anemia Qualifiers: Anemia type: unspecified type Qualified Code(s): D64.9 - Anemia, unspecified (8) Right knee pain Qualifiers: Chronicity: chronic Qualified Code(s): M25.561 - Pain in right knee; G89.29 - Other chronic pain <Kentrell Roman - Last Filed: 09/01/18 17:45> (2) Altered mental status Qualifiers: Altered mental status type: transient alteration of awareness Qualified Code(s): R40.4 - Transient alteration of awareness (4) Anemia Qualifiers: Anemia type: other cause Other causes of anemia: chronic disease, neoplastic Qualified Code(s): D63.0 - Anemia in neoplastic disease (8) Sepsis Qualifiers: Sepsis type: sepsis due to unspecified organism Qualified Code(s): A41.9 - Sepsis, unspecified organism (9) Right knee pain Qualifiers: Chronicity: chronic Qualified Code(s): M25.561 - Pain in right knee; G89.29 - Other chronic pain
[2018-09-01] MEDS ORDERED: Gadolinium Contrast Agent (WT Based) IV PRN (10:21)
[2018-09-01] MEDS: Thiamine (B-1) 100 MG TABLET PO SCH (14:20)
[2018-09-01] MEDS: *HR* OxyCODONE/APAP 10/325 TABLET PO SCH ×3 (14:21→21:56)
--- NOTE | 2018-09-01 15:37 | Electrocardiograph Report ---
[place] [id number] Test Date: 2018-08-31 Pat Name: Saurav Freed Department: EXAMC5 Room: 2NE18 Gender: M Lighting Adviser: : 1945 Requested By: Carlos Henderson Order Number: [id number] Reading MD: Adam Solares Measurements Intervals [place] Rate: 97 P: 54 MA: 148 QRS: 17 QRSD: 82 T: 64 QT: 314 QTc: 399 Interpretive Statements Sinus rhythm Probable left atrial enlargement Electronically Signed On 09-01-2018 15:35:32 EST by Adam Solares
--- NOTE | 2018-09-01 17:48 | Neurology - Consult Note ---
Date of Encounter: 09/02/18 Time of Encounter: 17:45 Assessment and Plan (1) Altered mental status Current Visit: Yes Status: Acute I ultimately suspect that the waxing and waning cycles of delirium that this patient is experiencing more than likely due to either a metabolic, infectious, nutritional, paraneoplastic or perhaps medication issue. This is particularly true considering the duration of the episodes which tend to be several hours at a time. His blood cultures revealed gram-positive cocci. The EEG only revealed mild generalized encephalopathy. I did not identify any evidence of seizure activity. The MRI scan of the brain reveals some chronic deep white matter ischemic changes however no evidence of acute infarct hemorrhagic process mass lesion, or mass effect. No hydrocephalus present. Otherwise I recommend a workup to identify an infectious source. This is not at all likely to be due to any type of central nervous system infectious process. Qualifiers: Altered mental status type: transient alteration of awareness Qualified Code(s): R40.4 - Transient alteration of awareness History of Present Illness HPI: Mr. Freed is a 72 year old male who was seen for neurologic consultation at the request of the hospitalist group secondary to waxing and waning periods of delirium. His son is present who gives the bulk of the history. Mr. 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 He also has chronic problems with his right knee which is suspected to be secondary to metastatic disease involving the right knee. His son informs me however that Mr. Freed has experienced transient alterations in his mental status the first of which occurred in May, on at least 4 different occasions. During these times he seems to have altered ability to talk and comprehend. He only answers in one word responses during these times. However the episodes tend to last several hours even up to a day or 2. No tremulousness or generalized tonic-clonic seizures been identified during these episodes. Earlier today he is admitted f or such an episode which is now completely resolved. He is back to his normal baseline status at the time of my assessment. He denies headache. He did however have an elevated white blood cell count and blood cultures are positive for gram-positive cocci. Past Med Surg Social Fam HX - Past Medical History Medical history: cancer, other Additional medical history: Brain and neck CA, BPH, Anemia, Psychiatric history: no psych history - Past Surgical History Additional surgical history: bilateral knee replacement, LL lobectomy, tumor in neck removed, AAA repair - Social History Smoking Status: Never smoker Alcohol use: none Drug use: none Medications and Allergies DiphenhydraMINE [Benadryl] 25 mg PO HS 08/31/18 [History] Ferrous Sulfate [Iron] 650 mg PO DAILY 08/31/18 [History] Finasteride [Proscar] 5 mg PO DAILY 08/31/18 [History] Levothyroxine [Synthroid] 75 mcg PO DAILY 08/31/18 [History] Loratadine [Allergy Relief] 10 mg PO DAILY 08/31/18 [History] Metformin HCl 1,000 mg PO BID 08/31/18 [History] Naproxen [Naprosyn] 250 mg PO Q12H PRN 08/31/18 [History] Omeprazole [PriLOSEC] 20 mg PO DAILY 08/31/18 [History] OxyCODONE/APAP 10/325 [Percocet 10/325 MG] 1 tab PO Q4H PRN 08/31/18 [History] Pregabalin [Lyrica] 150 mg PO BID 08/31/18 [History] Simvastatin [Zocor] 20 mg PO HS 08/31/18 [History] predniSONE [PredniSONE] 5 mg PO BID 08/31/18 [History] Hydrocortisone 1% CREAM [Cortaid] 1 appl TP BID 09/01/18 [History] Allergy/AdvReac Type Severity Reaction Status Date / Time No Known Allergies Allergy Verified 08/31/18 19:22 All Systems: The remainder of the systems were reviewed and are negative Review of Systems: The balance of the systems review is negative. Physical Examination - Vital Signs Vital Signs: Initial Vital Signs Temp Pulse Resp BP Pulse Ox 102.8 F H 97 22 132/90 100 08/31/18 19:14 08/31/18 19:14 08/31/18 19:14 08/31/18 19:14 08/31/18 19:14 - Exam Exam: General Examination: *CONSTITUTIONAL: Normal *GENERAL APPEARANCE OF PATIENT patient does appear to be weak chronically debilitated. *EYES: pupils equal, round, reactive to light and accommodation, conjunctiva clear without masses or ulcerations, fundi normal. *CARDIOVASCULAR no peripheral edema, distal temperature normal, dorsalis pedis pulses normal. Refer to vital signs Musculoskeletal: *GAIT AND STATION patient is unable to walk and is bedbound secondary to the right knee problem *ASSESSMENT OF MUSCLE STRENGTH IN THE UPPER AND LOWER EXTREMITIES deltoid, bicep, tricep, customer acquisition specialist strength symmetrically. He has normal strength bulk and tone of all muscles of the left lower extremity. His right knee is severely inflamed , discolored and immobile. He has significant edema of the right leg below the knee. He cannot move the right leg without causing intense pain. *MUSCLE TONE IN THE UPPER AND LOWER EXTREMITIES normal. He has normal bulk and tone of both upper extremities and the left lower extremity. Neurological: *ORIENTATION to time and place *RECURRENT AND REMOTE MEMORY intact *ATTENTION AND CONCENTRATION are normal *LANGUAGE FUNCTION no significant aphasia or dysarthia was noted. *FUND OF KNOWLEDGE aware of current events, past history, vocabulary *MENTAL attention span and concentration normal. *CN II optic fundi were normal, no papilledema noted. *CN III,IV, PERRLA extraocular eye movements were full, no nystagmus and no ptosis noted. *CN V shows normal sensation and jaw opens symmetrically. *CN VII shows normal facial movement symmetrically, upper and lower bilaterally. *CN VIII shows no significant hearing loss on examination in the office. *CN IX,,X palate elevated symmetrically and normal gag reflex was noted. *CN XI he has had radical right neck dissection with removal of the superficial musculature. *CN XII tongue protruded in the midline, with normal strength and movement. *SENSORY EXAMINATION pinprick sensation intact, and light touch(vibration sense). *REFLEXES: deep tendon reflexes were normal and symmetrical , grade 2/4 diffusely, no pathological reflexes were noted. Right patellar reflex was not assessed. *CEREBELLAR TESTING normal finger to nose. *PAIN LEVEL 6-7 Results - Laboratory Findings CBC and BMP: 09/01/18 01:03 09/01/18 03:26 Abnormal lab findings: Abnormal lab results RBC 3.42 M/mcL (4.19-5.50) L 09/01/18 01:03 Hgb 8.6 g/dL (12.9-16.9) L 09/01/18 01:03 Hct 27.0 % (37.5-50.1) L 09/01/18 01:03 MCV 78.9 fL (83.0-100.0) L 09/01/18 01:03 MCH 25.1 pg (28.0-33.3) L 09/01/18 01:03 RDW 17.6 % (11.5-14.5) H 09/01/18 01:03 Sodium 130 mEq/L (136-145) L 09/01/18 03:26 Chloride 96 mEq/L (98-107) L 09/01/18 03:26 Glucose 113 mg/dL (70-105) H 09/01/18 03:26 POC Glucose 131 mg/dL (70-99) H 09/01/18 11:35 Calculated Osmolality 272 (280-300) L 09/01/18 03:26 Calcium 8.5 mg/dL (8.6-10.3) L 09/01/18 03:26 Alkaline Phosphatase 110 Units/L (34-104) H 08/31/18 19:21 Albumin 3.1 g/dL (3.5-5.7) L 08/31/18 19:21 Globulin 4.2 g/dL (2.4-3.5) H 08/31/18 19:21 Albumin/Globulin Ratio 0.7 (1.1-2.2) L 08/31/18 19:21 Urine Clarity Cloudy (Clear) A 08/31/18 20:03 Ur Specific [place] 1.009 (1.010-1.025) L 08/31/18 20:03 Consult Discharge Plan - Plan Referrals: Aamir Wilkinson DO [Partnered Physician] - 09/09/18 9:30 am
[2018-09-01 18:11] LABS: Acinetobacter baumannii by PCR Not Detected (Not Detect); Candida albicans by PCR Not Detected (Not Detect); Candida glabrata by PCR Not Detected (Not Detect); Candida krusei by PCR Not Detected (Not Detect); Candida parapsilosis by PCR Not Detected (Not Detect); Candida tropicalis by PCR Not Detected (Not Detect); Enterobacter cloacae Cmplx PCR Not Detected (Not Detect); Enterobacteriaceae by PCR Not Detected (Not Detect); Enterococcus by PCR Not Detected (Not Detect); Escherichia coli by PCR Not Detected (Not Detect); Klebsiella oxytoca by PCR Not Detected (Not Detect); Klebsiella pneumoniae by PCR Not Detected (Not Detect); Proteus by PCR Not Detected (Not Detect); Pseudomonas aeruginosa by PCR Not Detected (Not Detect); Serratia marcescens by PCR Not Detected (Not Detect); Staphylococcus aureus by PCR Not Detected (Not Detect); Streptococcus agalactiae(B)PCR Not Detected (Not Detect); Streptococcus by PCR Not Detected (Not Detect); Streptococcus pneumoniae PCR Not Detected (Not Detect); Streptococcus pyogenes (A) PCR Not Detected (Not Detect)
[2018-09-01 18:12] LABS: Staphylococcus by PCR DETECTED (Not Detect); mecA Methicillin-Resist Gene DETECTED (Not Detect)
[2018-09-01 18:56] LABS: Thyroid Stimulating Hormone 2.059 mcIU/mL (0.340-5.600)
--- NOTE | 2018-09-01 21:02 | Procedure Note ---
Date of procedure: 09/01/18 Pre-op diagnosis: Intractable left leg pain Post-op diagnosis: same Procedure: Left sacroiliac joint injection Anesthesia: none Surgeon: Prosper Melara Was there an medical staff assistant present: No Estimated blood loss (cc): 0 Specimen: None Pathology: none sent Condition: stable Disposition: floor (After verbal consent was obtained, utilizing sterile technique the left sacroiliac joint was injected with a mixture of 5 mL of 0.5% Marcaine, 80 mg of Depo-Medrol and 8 mg of Decadron. Tolerated well. Band-Aid was applied to puncture site.)
--- NOTE | 2018-09-01 21:44 | Orthopedic Consult Note ---
Date of Encounter: 09/01/18 Time of Encounter: 21:32 History of Present Illness Chief complaint: Right knee pain HPI: Mr. Freed is a 72 year old male with a complex medical and surgical history. The patient has a history of a head and neck squamous cell carcinoma that had been initially treated. This is complicated in regards to his right knee. Approximately 2 years ago the patient had undergone a right total knee arthroplasty. The patient had a very difficult postoperative course with poor functioning. There is also noted to have some persistent postoperative problems and upon evaluation he was noted to have what appeared to be a metastatic tumor to the medial side of the knee. The patient underwent a surgical procedure to debulk and remove the tumor and then ultimately had a revision total knee arthroplasty performed. Unfortunately the patient has had persistent problems and pain and probable recurrence of tumor to the right knee. He is scheduled to have a right knee amputation performed at the [facility] later this month. This is further complicated by the patient having an acute episode recently with a change in his mental status and a leukocytosis. A blood culture report was just identified that reveals the presence of gram-positive cocci in his peripheral venipuncture. The patient has been under the care of an oncologist, Dr. Nielsen, at [facility]. He has been on an experimental chemotherapeutic regimen for his metastatic squamous cell carcinoma. I reviewed the patient's history and physical exam as well as the medical record. Pertinent orthopedic examination reveals a pleasant 72-year-old gentleman in no current distress while lying in the hospital bed. Current vital signs are stable. Patient is afebrile. The right knee is held in a persistent flexed position. There is a well-healed midline incision over the right knee. There is tremendous amount of indurated and brawny skin changes along the medial side of the knee. There is palpable fullness in the medial distal thigh just posterior to the knee proper. Distally the patient has marked edema. Patient had an initial leukocytosis with a WBC of 13.4. It has improved to 10.4. No significant shift. Hemoglobin is 8.6. Blood culture from 08/31/2018 is positive for gram-positive cocci. CT scan of the knee reveals a revision type total knee arthroplasty with femoral and tibial stems. This appears to be a press-fit type prosthesis. Evaluation is extremely difficult due to the marked amount of scatter. There is a suggestion of a fluid-filled area at the very distal aspect of the musculotendinous junction of the sartorius. There is indurated and thickened skin around the knee proper. No obvious lucencies or changes within bone suggestive of lytic lesions. Impression: 1. Bacteremia with gram-positive cocci, source unknown 2. 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 I discussed with the patient that we could attempt to do this blindly" at bedside was could be attempted with interventional radiology with a guided needle aspiration. The patient has requested that we speak with his oncologist Dr. Nielsen prior to any type of intervention. I will abide by his wishes. He can be reached at [phone]. This can be done tomorrow as the patient is currently being protected with intravenous antibiotics. If the patient and his oncologist agreed to proceed with aspiration would recommend proceeding with a guided procedure to verify a viable specimen. Thank you very much for allowing me to see and assist in the treatment of Mr. Freed. Sincerely, Prosper Melara,DO Past Med Surg Social Fam HX - Past Medical History Medical history: cancer, other Additional medical history: Brain and neck CA, BPH, Anemia, Psychiatric history: no psych history - Past Surgical History Additional surgical history: bilateral knee replacement, LL lobectomy, tumor in neck removed, AAA repair - Social History Smoking Status: Never smoker Alcohol use: none Drug use: none Medications and Allergies DiphenhydraMINE [Benadryl] 25 mg PO HS 08/31/18 [History] Ferrous Sulfate [Iron] 650 mg PO DAILY 08/31/18 [History] Finasteride [Proscar] 5 mg PO DAILY 08/31/18 [History] Levothyroxine [Synthroid] 75 mcg PO DAILY 08/31/18 [History] Loratadine [Allergy Relief] 10 mg PO DAILY 08/31/18 [History] Metformin HCl 1,000 mg PO BID 08/31/18 [History] Naproxen [Naprosyn] 250 mg PO Q12H PRN 08/31/18 [History] Omeprazole [PriLOSEC] 20 mg PO DAILY 08/31/18 [History] OxyCODONE/APAP 10/325 [Percocet 10/325 MG] 1 tab PO Q4H PRN 08/31/18 [History] Pregabalin [Lyrica] 150 mg PO BID 08/31/18 [History] Simvastatin [Zocor] 20 mg PO HS 08/31/18 [History] predniSONE [PredniSONE] 5 mg PO BID 08/31/18 [History] Hydrocortisone 1% CREAM [Cortaid] 1 appl TP BID 09/01/18 [History] Allergy/AdvReac Type Severity Reaction Status Date / Time No Known Allergies Allergy Verified 08/31/18 19:22 All Systems Reviewed: The remainder of the systems were reviewed and are negative Physical Exam - Constitutional Vitals: Temp Pulse Resp BP Pulse Ox 97.4 F L 72 19 132/87 97 09/01/18 17:40 09/01/18 17:40 09/01/18 11:30 09/01/18 17:40 09/01/18 17:40 Results - Labs Result Diagrams: 09/01/18 01:03 09/01/18 03:26 Labs: Abnormal lab results RBC 3.42 M/mcL (4.19-5.50) L 09/01/18 01:03 Hgb 8.6 g/dL (12.9-16.9) L 09/01/18 01:03 Hct 27.0 % (37.5-50.1) L 09/01/18 01:03 MCV 78.9 fL (83.0-100.0) L 09/01/18 01:03 MCH 25.1 pg (28.0-33.3) L 09/01/18 01:03 RDW 17.6 % (11.5-14.5) H 09/01/18 01:03 Sodium 130 mEq/L (136-145) L 09/01/18 03:26 Chloride 96 mEq/L (98-107) L 09/01/18 03:26 Glucose 113 mg/dL (70-105) H 09/01/18 03:26 POC Glucose 131 mg/dL (70-99) H 09/01/18 11:35 Calculated Osmolality 272 (280-300) L 09/01/18 03:26 Calcium 8.5 mg/dL (8.6-10.3) L 09/01/18 03:26 Alkaline Phosphatase 110 Units/L (34-104) H 08/31/18 19:21 Albumin 3.1 g/dL (3.5-5.7) L 08/31/18 19:21 Globulin 4.2 g/dL (2.4-3.5) H 08/31/18 19:21 Albumin/Globulin Ratio 0.7 (1.1-2.2) L 08/31/18 19:21 Urine Clarity Cloudy (Clear) A 08/31/18 20:03 Ur Specific [place] 1.009 (1.010-1.025) L 08/31/18 20:03 Staphylococcus sp PCR DETECTED (Not Detect) A 08/31/18 19:21 mecA-Methicil Res Gene DETECTED (Not Detect) A 08/31/18 19:21 H & H 09/01/18 Range/Units 01:03 Hgb 8.6 L (12.9-16.9) g/dL Hct 27.0 L (37.5-50.1) % All other labs normal. Consult Discharge Plan - Plan Referrals: Aamir Wilkinson DO [Partnered Physician] - 09/09/18 9:30 am
[2018-09-02] MEDS: *HR* OxyCODONE/APAP 10/325 TABLET PO SCH ×6 (01:46→21:33)
[2018-09-02] MEDS: *HR* Heparin 5,000 UNIT/ML VIAL SQ SCH ×3 (05:57→21:33)
[2018-09-02] MEDS: Piperacillin/Tazobactam 3.375 GM in 0.9 % Sodium Chloride Mini Bag 100 ML IVPB SCH ×2 (05:58→14:38)
--- NOTE | 2018-09-02 07:32 | EEG/EMG/Oth Biometrics Report ---
EEG Procedure Report Date of procedure: 09/02/18 EEG Procedure: Routine EEG Procedure Note: This is a report of a 21 channel bipolar and referential montage EEG. The posterior dominant rhythm consisted of 6-7 Hz moderate voltage theta frequency. This rhythm attenuates symmetrically with eye opening. Hyperventilation is not performed in recording. Periods of drowsiness and stage II sleep identified as reference by dropout of the posterior dominant rhythm and emergence of vertex activity K complexes and sleep spindles. Photic stimulations performed and does not produce a driving response. The EKG rhythm strip reveals normal sinus rhythm at 72 bpm. Impressions: This EEG recording is abnormal and is characterized by slow posterior dominant rhythm. This is consistent with a mild generalized encephalopathy. There is no evidence of epileptiform activity identified during the study. Comment: Etiologies to explain this interpretation might include toxic, metabolic, postictal, degenerative, medication effect. Please correlate clinically.
[2018-09-02 09:19] LABS: Basophils % 0.3 %; Eosinophils % 0.3 %; Hematocrit 30.1 % (37.5-50.1); Hemoglobin 9.3 g/dL (12.9-16.9); Immature Granulocytes % 0.5 % (0-4); Lymphocytes # 0.7 K/mcL (0.6-4.6); Lymphocytes % 6.3 %; Mean Corpuscular HGB Conc 30.9 g/dL (31.6-35.5); Mean Corpuscular Hemoglobin 25.2 pg (28.0-33.3); Mean Corpuscular Volume 81.6 fL (83.0-100.0); Monocytes % 8.1 %; Platelet Count 345 K/mcL (140-400); Red Blood Count 3.69 M/mcL (4.19-5.50); Red Cell Distribution Width 17.7 % (11.5-14.5); Segmented Neutrophils % 84.5 %
[2018-09-02 09:34] LABS: BUN/Creatinine Ratio 17 (6-26); Blood Urea Nitrogen 15 mg/dL (8-23); Calcium 9.5 mg/dL (8.6-10.3); Carbon Dioxide 29 mEq/L (23-29); Chloride 97 mEq/L (98-107); Glucose 191 mg/dL (70-105); Osmolality,Calculated 278 (280-300); Potassium 4.5 mEq/L (3.5-5.1); Sodium 131 mEq/L (136-145); eGFR For Non-African Americans > 60 (> 60)
[2018-09-02] MEDS: predniSONE 5 MG TABLET PO SCH ×2 (09:51→21:33)
[2018-09-02] MEDS: Finasteride 5 MG TABLET PO SCH (09:51)
[2018-09-02] MEDS: Thiamine (B-1) 100 MG TABLET PO SCH (09:52)
[2018-09-02] MEDS: Pregabalin 75 MG CAPSULE PO SCH ×2 (09:52→21:33)
[2018-09-02] MEDS: Loratadine 10 MG TABLET PO SCH (09:52)
--- NOTE | 2018-09-02 09:52 | Internal Med Progress Note ---
<Stefano Richmond - Last Filed: 09/02/18 13:46> Hospitalist Progress Note - Encounter Date of Encounter: 09/02/18 Time of Encounter: 08:30 - Subjective Interval History: Patient was seen with no family member at bedside. Patient is not confused today, is fully responsive, and is not shaking. Patient explains he feels very good today with no current complaints other than a 3/10 aching pain in his right knee which he says is adequately controlled with pain medication. Patient did mention he wants to be able to get up and go to the bathroom, he does not like using a bed side commode. Patient was able to communicate and give a ROS review today in which he denied chest pain, shortness of breath, abdominal pain, constipation, diarrhea, fevers, night sweats, headache and chills. In discussion of goals of care patient mentions he has a flight this Thursday to [place] to receive chemotherapy treatment and he strongly wants to attend this session. - Exam Vitals: Temp Pulse Resp BP Pulse Ox 96.7 F L 57 16 118/82 96 09/02/18 08:10 09/02/18 08:10 09/02/18 08:10 09/02/18 08:10 09/02/18 05:35 Exam: Vitals: Reviewed General: Patient is pleasant sitting upright in bed reading a book. A&O x 3. No acute distress. Skin: Pale, warm. HEENT: Dry mucous membranes. + conjunctivae pallor. Nystagmus present. Neck: Surgically resected right cervical lymph nodes with no inflammatory signs present. Chest: Normal thoracic expansion. Normal breath sounds. Clear to auscultation. Heart: Normal S1 & S2; rhythmic. No rubs or murmurs. Abdomen: Non-distended, soft and non-tender to palpation. No peritoneal reaction. Extremities: Right knee swollen with hyperkeratosis. Neurological: Awake, oriented to person, place, and time. No focal deficits. - Assessment and Plan (1) Altered mental status Current Visit: Yes Status: Acute Assessment and Plan: Initially seen for waxing and waning periods of delirium. Son mentioned at time of admission that patient was having altered mental status with shaking and did not remember episodes On exam at admission patient has moments of decreased responsiveness but then becomes alert and does not remember these episodes, also shaking Patient was initially given fluids and pain medication which improved clinical presentation. The following day patient was seen and exam findings were suspicious for seizure activity or other neurologic activity, neurology was consulted and brain mri showed mild small vessel ischemic changes bilaterally, few mall prior infarcts, no acute process. EEG showed slow posterior dominant rhythm consistent with m ild generalized encephalopathy. Possible causes include toxic, infection, metablic, degenerative, medication effect. Gave thiamine. Plan is to continue antibiotic therapy for vanc zosyn bacteremia; tailor antibiotic therapy as cultures finalize as well as monitor for other etiologies. (2) Sepsis Current Visit: Yes Status: Acute Assessment and Plan: Patient initially presented with fever and leukocytosis. No clear etiology was identified. Blood cultures were drawn, empiric abx with Vanc/Zosyn and fluid resuscitation started 08/30. UA clear. CXR without consolidation. No meningeal signs present. No pressure ulcer. No indwelling port. Right knee remains possible source of infection, CT demonstrated likely hematoma at myotendinous junction of sartorius orthopedic surgery has been consulted to evaluate for possible aspiration and analysis Patient is also involved in experimental chemotherapy trial for lymphoma. This remains possible etiology for clinical picture. Patient afebrile today. Temperature 96.7, HR 57 RR 16 BP 118/82. Mild leukocytosis. Blood cultures grew staph (not aureus) Mec A methicillin resistant gram positive cocci. This is possible bacteremia or contamination only one of 2 tubes was positive. Consulted Infectious disease, recommendations appreciated .Continue empiric antibiotics until reccs from ID. (3) Malignancy Current Visit: Yes Status: Acute Assessment and Plan: history of metastatic squamous cell carcinoma of the head and neck. Patient currently in chemo as described above. Next chemo session scheduled for 09/06/18. (4) Electrolyte abnormality Current Visit: Yes Status: Acute Assessment and Plan: Hyponatremic and hypochloremic with clinical evidence of dehydration on admission. Urine sodium 89.6 and osm 374. SIADH should also be under consideration if not responsive to fluids given his malignancy. Uric acid 4.2, tsh 4.3 . 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 Will continue to monitor and address as neccessary. (5) Anemia Current Visit: Yes Status: Suspected Assessment and Plan: Differential includes hematoma of thigh or chronic disease. Hgb 9.3 today. Unknown baseline. Stool occult negative. No other signs of active bleeding. Patient is not anticoagulated other than SubQ heparin for DVT propylaxis orthopedics is consulted to address hematoma, We will continue to monitor hemoglobin and replace as necessary Continue iron supplementation. (6) Elevated troponin Current Visit: Yes Status: Acute Assessment and Plan: Likely in the setting of SIRS upon admission. No chest pain or ischemic electrocardiographic changes at admission, yesterday, or today. Elevated tropinin has resolved. Will continue to monitor. (7) DVT prophylaxis Current Visit: Yes Status: Acute Assessment and Plan: continue SubQ Heparin. (8) Right knee pain Current Visit: Yes Status: Chronic Assessment and Plan: Patient has history of chronic knee pain He had a right knee replacement in the past He was then found to have a tumor in the right knee that was surgically removed and irratiated the patient afterwards had another knee replacement due to repeated knee infections and radiation damage. Due to repeated infections and radiation changes the patient is scheduled to have above the knee amputation at [facility] this month Due to pain and swelling the knee was imaged this admission Blood cultures grew gram positive cocci. CT revealed likely hematoma at myotendinous juncton at the [facility] Orthopedics was consulted for possible aspiration analysis. We discussed this with the patient's oncologist who approved. Await further orthopedic recommendations. (9) Bullous pemphigoid Current Visit: Yes Status: Chronic Assessment and Plan: Pysician managing patient's chemotherapy reveiled patient has history of bullous pemphigoid He takes 5 mg predisone daily and has not had any recent lesions lesions in the past have appeared in the right knee and in the mouth after intubation This is one of the factors contributing upcoming AKA - Time Spent with Patient Total time spent is greater than 50% in coordination of care (as documented) at patient's floor/unit and/or counseling patient: Internal Medicine: Result - Labs CBC & Chem 7: 09/02/18 09:03 09/02/18 09:03 Labs: Short CBC 09/02/18 Range/Units 09:03 WBC 11.8 H (4.3-11.1) K/mcL Hgb 9.3 L (12.9-16.9) g/dL Hct 30.1 L (37.5-50.1) % Plt Count 345 (140-400) K/mcL Neutrophils # 10.0 H (1.6-8.9) K/mcL BMP 09/02/18 09:03 Sodium 131 L Potassium 4.5 Chloride 97 L Carbon Dioxide 29 BUN 15 Creatinine 0.86 Glucose 191 H Calcium 9.5 Liver Function 09/01/18 Range/Units 18:04 AST 27 (13-39) Units/L ALT 15 (7-52) Units/L - Impressions Impressions Chest CT 08/31/18 20:58 IMPRESSION: Trace bilateral pleural effusions, right larger than left. No acute lung parenchymal abnormalities. Multiple bilateral pulmonary nodules compatible with metastatic disease. Cardiomegaly with moderate pericardial effusion. 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 Atherosclerosis to include coronary artery disease. D/ /31/2018 21:48:50 Yoel Chavez MD / shemar Interpreting Provider: Yoel Chavez MD Brain MRI 09/01/18 10:21 IMPRESSION: Mild small vessel ischemic changes bilaterally. A few small prior infarcts are noted, as described. No acute infarct or hemorrhage. No mass. D/ / Michael London / Michael London Interpreting Provider: Michael London Knee CT 09/01/18 10:21 IMPRESSION: Large hyperdense collection measuring 5.2 x 6.1 x 7.6 cm in size likely within the distal sartorius myotendinous junction. This may represent a large intramuscular hematoma from muscle tear. Limited visualization secondary to extensive beam hardening artifact. Slight irregularity of the cortex of the posteromedial aspect of the medial tibial plateau may represent a subacute fracture. This is in the region of the large soft tissue collection as well. However, this is not well evaluated due to beam hardening artifact. Total knee arthroplasty without definite evidence of periprosthetic lucency to suggest loosening or infection. No evidence of joint effusion. Extensive periarticular subcutaneous edema and skin thickening, nonspecific. D/ / 09/01/2018 12:13:54 Christopher Hall MD / Fátima Sam Interpreting Provider: Christopher Hall MD Consult Discharge Plan - Plan Referrals: Aamir Wilkinson DO [Partnered Physician] - 09/09/18 9:30 am <Kentrell Roman - Last Filed: 09/02/18 18:20> Hospitalist Progress Note - Encounter Date of Encounter: 09/02/18 - Exam Vitals: Temp Pulse Resp BP Pulse Ox 97.7 F 65 15 147/81 97 09/02/18 14:13 09/02/18 14:13 09/02/18 14:13 09/02/18 14:13 09/02/18 14:24 - Assessment and Plan (1) Acute metabolic encephalopathy Current Visit: Yes Status: Resolved (2) Altered mental status Current Visit: Yes Status: Resolved (3) Elevated troponin Current Visit: Yes Status: Acute (4) Anemia Current Visit: Yes Status: Suspected (5) Malignancy Current Visit: Yes Status: Acute (6) DVT prophylaxis Current Visit: Yes Status: Acute (7) Electrolyte abnormality Current Visit: Yes Status: Acute (8) Sepsis Current Visit: Yes Status: Acute (9) Right knee pain Current Visit: Yes Status: Chronic (10) Bullous pemphigoid Current Visit: Yes Status: Chronic - Time Spent with Patient Total time spent is greater than 50% in coordination of care (as documented) at patient's floor/unit and/or counseling patient: Internal Medicine: Result - Labs CBC & Chem 7: 09/02/18 09:03 09/02/18 09:03 Labs: Short CBC 09/02/18 Range/Units 09:03 WBC 11.8 H (4.3-11.1) K/mcL Hgb 9.3 L (12.9-16.9) g/dL Hct 30.1 L (37.5-50.1) % Plt Count 345 (140-400) K/mcL Neutrophils # 10.0 H (1.6-8.9) K/mcL BMP 09/02/18 09:03 Sodium 131 L Potassium 4.5 Chloride 97 L Carbon Dioxide 29 BUN 15 Creatinine 0.86 Glucose 191 H Calcium 9.5 Liver Function 09/01/18 Range/Units 18:04 AST 27 (13-39) Units/L ALT 15 (7-52) Units/L - Attending Attestation The history, physical exam, and medical decision making was performed by the medical student either while I was physically present and actively involved or I personally re-performed the exam and medical decision making. I have verified the accuracy of the medical student's documentation with regards to the history, physical exam findings, and medical decision making on 09/02/18. Mr Freed is currently admitted for sepsis. He remains moderate to high risk due to potential for worsening clinical status. Mr Freed is much better today. He is alert and oriented and appears to be at baseline. No fever or chills. Has less R knee swelling and pain. No GI issues. Exam alert Comfortable Mucus membranes dry Heart reg and not tachy Lungs clear Abd soft and nontender R knee with less swelling I/P 1. Sepsis - cx pending. Clinically has improved. 2. R knee pain - less swollen today. ? aspiration. 3. Encephalopathy resolved 4. Malignancy - for chemo Thursday 5. Anemia - chronic 6. Bullous pemphigoid Further diagnoses and plan as above. <Stefano Richmond - Last Filed: 09/02/18 13:46> (1) Altered mental status Qualifiers: Altered mental status type: transient alteration of awareness Qualified Code(s): R40.4 - Transient alteration of awareness (2) Sepsis Qualifiers: Sepsis type: sepsis due to unspecified organism Qualified Code(s): A41.9 - Sepsis, unspecified organism (5) Anemia Qualifiers: Anemia type: other cause Other causes of anemia: chronic disease, neoplastic Qualified Code(s): D63.0 - Anemia in neoplastic disease (8) Right knee pain Qualifiers: Chronicity: chronic Qualified Code(s): M25.561 - Pain in right knee; G89.29 - Other chronic pain <Kentrell Roman - Last Filed: 09/02/18 18:20> (2) Altered mental status Qualifiers: Altered mental status type: transient alteration of awareness Qualified Code(s): R40.4 - Transient alteration of awareness (4) Anemia Qualifiers: Anemia type: other cause Other causes of anemia: chronic disease, neoplastic Qualified Code(s): D63.0 - Anemia in neoplastic disease (8) Sepsis Qualifiers: Sepsis type: sepsis due to unspecified organism Qualified Code(s): A41.9 - Sepsis, unspecified organism (9) Right knee pain Qualifiers: Chronicity: chronic Qualified Code(s): M25.561 - Pain in right knee; G89.29 - Other chronic pain
--- NOTE | 2018-09-02 10:00 | Neurology - Consult Note ---
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; previous right radical neck dissection - Transient alterations in mental status since May; a total of 4 different occasions - During these episodes, patient appears to have an impaired ability to speak and comprehend - No tremors or generalized seizure activity identified during these episodes - Patient had elevated white count and blood cultures positive for gram-positive cocci - MRI: Mild small vessel ischemic changes bilaterally, few small prior infarcts; no acute process - EEG report: Slow posterior dominant rhythm consistent with mild generalized encephalopathy; possible causes include toxic, metabolic, degenerative, me dication effect Plan: - Continue antibiotic therapy for bacteremia; tailor antibiotic therapy as cul tures finalize Qualifiers: Altered mental status type: transient alteration of awareness Qualified Code(s): R40.4 - Transient alteration of awareness History of Present Illness HPI: Mr. Freed is a 72 year old male Past Med Surg Social Fam HX - Past Medical History Medical history: cancer, other Additional medical history: Brain and neck CA, BPH, Anemia, Psychiatric history: no psych history - Past Surgical History Additional surgical history: bilateral knee replacement, LL lobectomy, tumor in neck removed, AAA repair - Social History Smoking Status: Never smoker Alcohol use: none Drug use: none Medications and Allergies DiphenhydraMINE [Benadryl] 25 mg PO HS 08/31/18 [History] Ferrous Sulfate [Iron] 650 mg PO DAILY 08/31/18 [History] Finasteride [Proscar] 5 mg PO DAILY 08/31/18 [History] Levothyroxine [Synthroid] 75 mcg PO DAILY 08/31/18 [History] Loratadine [Allergy Relief] 10 mg PO DAILY 08/31/18 [History] Metformin HCl 1,000 mg PO BID 08/31/18 [History] Naproxen [Naprosyn] 250 mg PO Q12H PRN 08/31/18 [History] Omeprazole [PriLOSEC] 20 mg PO DAILY 08/31/18 [History] OxyCODONE/APAP 10/325 [Percocet 10/325 MG] 1 tab PO Q4H PRN 08/31/18 [History] Pregabalin [Lyrica] 150 mg PO BID 08/31/18 [History] Simvastatin [Zocor] 20 mg PO HS 08/31/18 [History] predniSONE [PredniSONE] 5 mg PO BID 08/31/18 [History] Hydrocortisone 1% CREAM [Cortaid] 1 appl TP BID 09/01/18 [History] Allergy/AdvReac Type Severity Reaction Status Date / Time No Known Allergies Allergy Verified 08/31/18 19:22 All Systems: The remainder of the systems were reviewed and are negative Physical Examination - Vital Signs Vital Signs: Initial Vital Signs Temp Pulse Resp BP Pulse Ox 102.8 F H 97 22 132/90 100 08/31/18 19:14 08/31/18 19:14 08/31/18 19:14 08/31/18 19:14 08/31/18 19:14 Results - Laboratory Findings CBC and BMP: 09/02/18 09:03 09/02/18 09:03 Abnormal lab findings: Abnormal lab results WBC 11.8 K/mcL (4.3-11.1) H 09/02/18 09:03 RBC 3.69 M/mcL (4.19-5.50) L 09/02/18 09:03 Hgb 9.3 g/dL (12.9-16.9) L 09/02/18 09:03 Hct 30.1 % (37.5-50.1) L 09/02/18 09:03 MCV 81.6 fL (83.0-100.0) L 09/02/18 09:03 MCH 25.2 pg (28.0-33.3) L 09/02/18 09:03 MCHC 30.9 g/dL (31.6-35.5) L 09/02/18 09:03 RDW 17.7 % (11.5-14.5) H 09/02/18 09:03 Neutrophils # 10.0 K/mcL (1.6-8.9) H 09/02/18 09:03 Sodium 131 mEq/L (136-145) L 09/02/18 09:03 Chloride 97 mEq/L (98-107) L 09/02/18 09:03 Glucose 191 mg/dL (70-105) H 09/02/18 09:03 POC Glucose 166 mg/dL (70-99) H 09/01/18 21:57 Calculated Osmolality 278 (280-300) L 09/02/18 09:03 Alkaline Phosphatase 110 Units/L (34-104) H 08/31/18 19:21 Albumin 3.1 g/dL (3.5-5.7) L 08/31/18 19:21 Globulin 4.2 g/dL (2.4-3.5) H 08/31/18 19:21 Albumin/Globulin Ratio 0.7 (1.1-2.2) L 08/31/18 19:21 Urine Clarity Cloudy (Clear) A 08/31/18 20:03 Ur Specific [place] 1.009 (1.010-1.025) L 08/31/18 20:03 Staphylococcus sp PCR DETECTED (Not Detect) A 08/31/18 19:21 mecA-Methicil Res Gene DETECTED (Not Detect) A 08/31/18 19:21 Consult Discharge Plan - Plan Referrals: Aamir Wilkinson DO [Partnered Physician] - 09/09/18 9:30 am
[2018-09-02] MEDS: Insulin LISPRO 300 UNITS/3 ML VIAL SQ SCH ×4 (10:01→21:58)
--- NOTE | 2018-09-02 10:02 | Neurology Progress Note ---
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; previous right radical neck dissection - Transient alterations in mental status since May; a total of 4 different occasions - During these episodes, patient appears to have an impaired ability to speak and comprehend - No tremors or generalized seizure activity identified during these episodes - Patient had elevated white count and blood cultures positive for gram-positive cocci - MRI: Mild small vessel ischemic changes bilaterally, few small prior infarcts; no acute process - EEG report: Slow posterior dominant rhythm consistent with mild generalized encephalopathy; possible causes include toxic, metabolic, degenerative, medication effect Plan: - Continue antibiotic therapy for bacteremia; tailor antibiotic therapy as cultures finalize Objective - Constitutional Vitals: Temp Pulse Resp BP Pulse Ox 96.7 F L 57 16 118/82 96 09/02/18 08:10 09/02/18 08:10 09/02/18 08:10 09/02/18 08:10 09/02/18 05:35 Results - Laboratory Findings CBC and BMP: 09/02/18 09:03 09/02/18 09:03 Abnormal lab findings: Abnormal lab results WBC 11.8 K/mcL (4.3-11.1) H 09/02/18 09:03 RBC 3.69 M/mcL (4.19-5.50) L 09/02/18 09:03 Hgb 9.3 g/dL (12.9-16.9) L 09/02/18 09:03 Hct 30.1 % (37.5-50.1) L 09/02/18 09:03 MCV 81.6 fL (83.0-100.0) L 09/02/18 09:03 MCH 25.2 pg (28.0-33.3) L 09/02/18 09:03 MCHC 30.9 g/dL (31.6-35.5) L 09/02/18 09:03 RDW 17.7 % (11.5-14.5) H 09/02/18 09:03 Neutrophils # 10.0 K/mcL (1.6-8.9) H 09/02/18 09:03 Sodium 131 mEq/L (136-145) L 09/02/18 09:03 Chloride 97 mEq/L (98-107) L 09/02/18 09:03 Glucose 191 mg/dL (70-105) H 09/02/18 09:03 POC Glucose 166 mg/dL (70-99) H 09/01/18 21:57 Calculated Osmolality 278 (280-300) L 09/02/18 09:03 Alkaline Phosphatase 110 Units/L (34-104) H 08/31/18 19:21 Albumin 3.1 g/dL (3.5-5.7) L 08/31/18 19:21 Globulin 4.2 g/dL (2.4-3.5) H 08/31/18 19:21 Albumin/Globulin Ratio 0.7 (1.1-2.2) L 08/31/18 19:21 Urine Clarity Cloudy (Clear) A 08/31/18 20:03 Ur Specific [place] 1.009 (1.010-1.025) L 08/31/18 20:03 Staphylococcus sp PCR DETECTED (Not Detect) A 08/31/18 19:21 mecA-Methicil Res Gene DETECTED (Not Detect) A 08/31/18 19:21 Consult Discharge Plan - Plan Referrals: Aamir Wilkinson DO [Partnered Physician] - 09/09/18 9:30 am <Cong Rodriguez - Last Filed: 09/02/18 17:36> Date of Encounter: 09/02/18 Time of Encounter: 17:33 Assessment and Plan (1) Altered mental status Current Visit: Yes Status: Resolved As mentioned previously is my assessment that the mental status changes were likely due to either infectious, metabolic, or perhaps medication effect. There is no evidence of a central nervous system infectious process. I will reevaluate him at your request. Qualifiers: Altered mental status type: transient alteration of awareness Qualified Code(s): R40.4 - Transient alteration of awareness Subjective Interval history: The chart was reviewed, the patient was seen and examined dependently with the neurology resident. I agree with his assessment as stated above. Ultimately the cultures grew out MRSA. I do not feel that we are dealing with seizure or any other central nervous system etiology to explain the cyclic delirium. I believe that we are dealing with infectious and metabolic etiologies. Perhaps medications. Objective - Constitutional Vitals: Temp Pulse Resp BP Pulse Ox 97.7 F 65 15 147/81 97 09/02/18 14:13 09/02/18 14:13 09/02/18 14:13 09/02/18 14:13 09/02/18 14:24 - Neurological Exam Additional comments: General Examination: *CONSTITUTIONAL: Normal *GENERAL APPEARANCE OF PATIENT patient does appear to be weak chronically debilitated. *EYES: pupils equal, round, reactive to light and accommodation, conjunctiva clear without masses or ulcerations, fundi normal. *CARDIOVASCULAR no peripheral edema, distal temperature normal, dorsalis pedis pulses normal. Refer to vital signs Musculoskeletal: *GAIT AND STATION patient is unable to walk and is bedbound secondary to the right knee problem *ASSESSMENT OF MUSCLE STRENGTH IN THE UPPER AND LOWER EXTREMITIES deltoid, bicep, tricep, computer applications developer strength symmetrically. He has normal strength bulk and tone of all muscles of the left lower extremity. His right knee is severely inflamed , discolored and immobile. He has significant edema of the right leg below the knee. He cannot move the right leg without causing intense pain. *MUSCLE TONE IN THE UPPER AND LOWER EXTREMITIES normal. He has normal bulk and tone of both upper extremities and the left lower extremity. Neurological: *ORIENTATION to time and place *RECURRENT AND REMOTE MEMORY intact *ATTENTION AND CONCENTRATION are normal *LANGUAGE FUNCTION no significant aphasia or dysarthia was noted. *FUND OF KNOWLEDGE aware of current events, past history, vocabulary *MENTAL attention span and concentration normal. *CN II optic fundi were normal, no papilledema noted. *CN III,IV, PERRLA extraocular eye movements were full, no nystagmus and no ptosis noted. *CN V shows normal sensation and jaw opens symmetrically. *CN VII shows normal facial movement symmetrically, upper and lower bilaterally. *CN VIII shows no significant hearing loss on examination in the office. *CN IX,,X palate elevated symmetrically and normal gag reflex was noted. *CN XI he has had radical right neck dissection with removal of the superficial musculature. *CN XII tongue protruded in the midline, with normal strength and movement. *SENSORY EXAMINATION pinprick sensation intact, and light touch(vibration sense). *REFLEXES: deep tendon reflexes were normal and symmetrical , grade 2/4 diffusely, no pathological reflexes were noted. Right patellar reflex was not assessed. *CEREBELLAR TESTING normal finger to nose. *PAIN LEVEL 6-7 Results - Laboratory Findings CBC and BMP: 09/02/18 09:03 09/02/18 09:03 Abnormal lab findings: Abnormal lab results WBC 11.8 K/mcL (4.3-11.1) H 09/02/18 09:03 RBC 3.69 M/mcL (4.19-5.50) L 09/02/18 09:03 Hgb 9.3 g/dL (12.9-16.9) L 09/02/18 09:03 Hct 30.1 % (37.5-50.1) L 09/02/18 09:03 MCV 81.6 fL (83.0-100.0) L 09/02/18 09:03 MCH 25.2 pg (28.0-33.3) L 09/02/18 09:03 MCHC 30.9 g/dL (31.6-35.5) L 09/02/18 09:03 RDW 17.7 % (11.5-14.5) H 09/02/18 09:03 Neutrophils # 10.0 K/mcL (1.6-8.9) H 09/02/18 09:03 Sodium 131 mEq/L (136-145) L 09/02/18 09:03 Chloride 97 mEq/L (98-107) L 09/02/18 09:03 Glucose 191 mg/dL (70-105) H 09/02/18 09:03 POC Glucose 233 mg/dL (70-99) H 09/02/18 16:19 Calculated Osmolality 278 (280-300) L 09/02/18 09:03 Alkaline Phosphatase 110 Units/L (34-104) H 08/31/18 19:21 Albumin 3.1 g/dL (3.5-5.7) L 08/31/18 19:21 Globulin 4.2 g/dL (2.4-3.5) H 08/31/18 19:21 Albumin/Globulin Ratio 0.7 (1.1-2.2) L 08/31/18 19:21 Urine Clarity Cloudy (Clear) A 08/31/18 20:03 Ur Specific [place] 1.009 (1.010-1.025) L 08/31/18 20:03 Staphylococcus sp PCR DETECTED (Not Detect) A 08/31/18 19:21 mecA-Methicil Res Gene DETECTED (Not Detect) A 08/31/18 19:21
--- NOTE | 2018-09-02 12:45 | Infectious Disease Consult ---
Date of Encounter: 09/02/18 Time of Encounter: 13:13 Assessment and Plan (1) Sepsis Status: Acute Assessment and plan: The patient had 4 sepsis criteria on admission. Source unclear. The patient does have positive blood culture 1, but unclear if this was a true infection versus contaminant. The right knee is also a possible source. Improved. White blood cell count normalized initially, but is back up a little bit today. Tachycardia and tachypnea have resolved. He has been afebrile. Blood cultures drawn 08/31/18 are +1 out of 2 sets for staph species per PCR. Recommendations: Await cultures to finalize. Await repeat blood cultures. If repeat cultures are negative, can likely transition to oral Bactrim until he can be evaluated by his surgeon in [place]. Would not recommend aspiration of the fluid collection at this point as it will likely not change the course of treatment since the patient is planning to undergo right AKA this month, although if there is concern that this is infected, he would likely benefit from the procedure being done sooner rather than later. Continue Vancomycin IV. Pharmacy to dose. Goal trough ~15. Discontinue Zosyn. Duration of treatment depends on the clinical picture. Monitor renal function and for drug toxicity and dose-adjust antibiotics. Recommend maintaining close contact with the patient's oncologist in order to avoid jeopardizing his participation in the clinical trial. Qualifiers: Sepsis type: sepsis due to unspecified organism Qualified Code(s): A41.9 - Sepsis, unspecified organism (2) Bacteremia Status: Acute Assessment and plan: Causative organism: CONS. Likely a contaminant. Blood cultures drawn 08/31/17 are positive 1/2 sets. Repeat blood cultures drawn 09/02/17 are pending x 2 sets. Unlikely the cause of the patient's sepsis. (3) Right knee pain Status: Chronic Assessment and plan: Chronic, but worsening over the past few weeks. CT of the right knee showed a large hyperdense fluid collection within the distal sartorius myotendinous junction concerning for a possible large hematoma. Total knee athroplasty noted without evidence of loosening or infection. Patient planning to undergo right AKA later this month per his team in [place] due to chronic knee pain and unable to undergo surgery. Unclear if this is the source of the patient's sepsis. IR consulted for aspiration of the fluid collection. Pain management per the primary team. Qualifiers: Chronicity: chronic Qualified Code(s): M25.561 - Pain in right knee; G89.29 - Other chronic pain (4) Altered mental status Status: Resolved Assessment and plan: Likely secondary to sepsis. MRI of the brain negative for acute finding. Neurology consulted. Titus that RECORDS TECH infection unlikely cause. EEG showed encephalopathy, but no epileptic activity. Resolved. 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 Mets noted to the right posterior knee status post debulking and TKR 2015 followed by radiation. Mets noted to the right inguinal lymph node about two years ago. Completed 1 year of clinical trial chemo with improvement, but had recurrence 4 months after treatment stopped. Re-enrolled in [facility] clinical trial 8 weeks ago with IV Chemo [id number]. Planned for another round of chemo 09/06/18. (9) Bullous pemphigoid Status: Chronic Assessment and plan: Chronic daily prednisone. Infectious Disease HPI - Data of Consult Patient: new to practice Consult date: 09/02/18 Requesting Physician: Kentrell Roman DO Primary Care Provider: PCP NONE - Consult Narrative Reason for consult: Bacteremia History of present illness: Mr. Freed is a 72 year old male with a past medical history of metastatic squamous cell carcinoma of the head and neck currently on Hardin on IV chemotherapy with next dose due 09/06/18, bullous pemphigoid currently on daily oral prednisone, status post bilateral total knee replacement. The patient was admitted to the hospital 08/31/18 for altered mental status, elevated troponin, anemia, and febrile illness. We are consulted 09/02/18 for further recommendations for bacteremia and possible right knee infection. Briefly, the patient's a 72-year-old male with past medical history as stated above. He presented to the ER with his son who reported a two hour history of AMS and right arm shaking. Upon arrival to the ER, the patient was febrile and tachycardic with tachypnea. Labs revealed leukocytosis with neutrophilic predominance. Lactic acid, renal function, and LFTs were normal. The patient was noted to have anemia, but FOBT was negative. Flu antigen swab was negative. Urinalysis was normal. CXR showed right perihilar and possible left infrahilar nodules. CT of the chest showed trace bilateral pleural effusions and multiple bilateral pulmonary nodules consistent with mets. CT of the head was negative. Blood cultures were drawn x2 sets and the patient was started on empiric broad- spectrum antibiotics and admitted to the hospital for further evaluation. Since admission, the patient WBC normalized, but is back up a little today. MRI of the brain showed a few small prior infarcts, but nothing acute. Neurology was consulted and felt that the patient's symptoms were most likely related to an infectious etiology. EEG showed encephalopathy, but no eileptiform activity. CT of the right knee showed a large hyperdense collection within the distal sart orius myotendinous junction and was felt to possibly be a large intramuscular hematoma from a meniscus tear. Ortho was consulted and recommend aspiration of the fluid collection by IR. Currently, the patient is on Vanc and Zosyn. We've been asked to evaluate and make further recommendations. 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 He had radiation to the primary tumor with removal of the lymph nodes. He also had mets to the lung and had a left lower lobectomy and two soft-tissue tumors to the back which were surgically removed. He developed a right inguinal lymph node involvement and was enrolled in 1 year of a clinical trial. The lymph node shrank and he removed from the trial but had recurrence after about 4 months of no treatment and was re-started in the program about 8 weeks ago. His next dose is due 09/06/18. He tells me that two years ago, he was noted to have a tumor to the right knee. He underwent a de-bulking procedure and had a total knee replacement. He required radiation which caused disruption of the tissue and delayed healing and infection. He underwent a revision of the right knee and has continued to have worsening pain, lymphedema, and hyperkeratosis. He is scheduled to undergo amputation of the RLE at [facility] later this month. ROS significant for AMS and confusion [employer]. He states he was in his usual state of health and had sudden onset of confusion, shaking, chills. He denies headache, neck pain, cough, congestion, earache, or sore throat. Denies nausea, vomiting, or diarrhea. Denies constipation, abdominal pain, or urinary complaints. States his appetite has been good. States his right knee has become increasingly more painful and warm to touch, but denies erythema or open wounds and states the swelling is chronic and at baseline. Denies recent fall/trauma. Denies oral thrush. Reports skin lesions that are associated with his chemo. Per documentation, the patient takes Prednisone 5mg daily for bullous pemphigoid ass ociated with his chemo. The patient currently lives at home with his son, but has a house in [place] as well. He travels back and forth to [place] every two weeks for his chemo. He denies tobacco, alcohol, or illicit drug use. Denies known chronic infectious diseases. Has two cats at home, but denies any bites or scratches. He is a retired teacher. CC: Kentrell Roman, DO Past Med Surg Social Fam HX - Past Medical History Attestation: Yes The following information was validated with the patient. Source: patient, old records reviewed, nursing notes reviewed Medical history: cancer (Squamous cell carcinomal of head/neck with mets to the lung, back, lymph system), other Additional medical history: Brain and neck CA, BPH, Anemia, Psychiatric history: no psych history - Past Surgical History Additional surgical history: bilateral knee replacement, LL lobectomy, tumor in neck removed, AAA repair - Social History Smoking Status: Former smoker Alcohol use: none Drug use: none Occupational status: retired Current living situation: Home, With Family Activity Level: Uses cane/walker Recent Out of Country Travel Within the Last 8 Weeks: No Exposure or Possible Exposure to Illness During Travel: No Infectious Disease-CN:Meds DiphenhydraMINE [Benadryl] 25 mg PO HS 08/31/18 [History] Metformin HCl 1,000 mg PO BID 08/31/18 [History] Pregabalin [Lyrica] 150 mg PO BID 08/31/18 [History] RX: Ferrous Sulfate [Iron] 650 mg PO DAILY 08/31/18 [History] RX: Finasteride [Proscar] 5 mg PO DAILY 08/31/18 [History] RX: Levothyroxine [Synthroid] 75 mcg PO DAILY 08/31/18 [History] RX: Loratadine [Allergy Relief] 10 mg PO DAILY 08/31/18 [History] RX: Naproxen [Naprosyn] 250 mg PO Q12H PRN 08/31/18 [History] RX: Omeprazole [PriLOSEC] 20 mg PO DAILY 08/31/18 [History] RX: OxyCODONE/APAP 10/325 [Percocet 10/325 MG] 1 tab PO Q4H PRN 08/31/18 [History] RX: Simvastatin [Zocor] 20 mg PO HS 08/31/18 [History] RX: predniSONE [PredniSONE] 5 mg PO BID 08/31/18 [History] RX: Hydrocortisone 1% CREAM [Cortaid] 1 appl TP BID 09/01/18 [History] Allergy/AdvReac Type Severity Reaction Status Date / Time No Known Allergies Allergy Verified 08/31/18 19:22 All systems: reviewed and no additional remarkable complaints except as stated Exam - Constitutional Vitals: Temp Pulse Resp BP Pulse Ox 97.6 F 65 14 104/71 96 09/02/18 12:00 09/02/18 12:00 09/02/18 12:00 09/02/18 12:00 09/02/18 05:35 General appearance: average body habitus, cooperative, no acute distress - Head Head exam: Present: atraumatic, normal inspection, normocephalic - Eye Eye exam: Present: EOMI, normal appearance, PERRL Pupils: Present: normal accommodation - ENT ENT exam: Present: mucous membranes moist - Neck Neck exam: Present: normal inspection. Absent: meningismus Additional comments: Previous surgical site to the right neck healed. - Respiratory Respiratory exam: Present: CTAB. Absent: rales, respiratory distress, rhonchi, wheezes - Cardiovascular Cardiovascular exam: Present: RRR, +S1, +S2 - GI/Abdominal GI/Abdominal exam: Present: normal bowel sounds, soft. Absent: distended, tenderness - Extremities Exam Extremities exam: Absent: normal inspection (Chronic skin changes noted to the right knee with hyperkeratosis noted to the medial aspect without open lesion. Tenderness noted with palpation. ROM extremely limited due to pain. Warm to touch, but no erythema.) - Neurological Exam Neurological exam: Present: alert, oriented X3, no focal deficits - Psychiatric Psychiatric exam: Present: normal affect, normal mood - Skin Skin exam: Present: dry, intact, normal color, rash (Flat, erythematous macular rash noted to the torso and upper extremities.), warm Infectious Disease CN: Results - Labs CBC & Chem 7: 09/03/18 06:23 09/03/18 06:23 Cultures: Cultures 08/31/18 19:21 Blood Culture - Preliminary Peripheral Venipuncture Gram Positive Cocci 08/31/18 19:55 Blood Culture - Preliminary Peripheral Venipuncture Culture is incubating and being continuously monitored for growth. Final report to follow. 08/31/18 19:30 Influenza Types A,B Antigen - Final Nasopharyngeal Serology: Serology 08/31/18 08/31/18 08/31/18 Range/Units 22:12 22:12 21:00 Urine Color (Yellow) Urine Clarity (Clear) Urine pH (5.0-8.0) pH Units Ur Specific [place] (1.010-1.025) Urine Protein (Neg-Trace) mg/dL Urine Glucose (UA) (Normal) mg/dL Urine Ketones (Negative) mg/dL Urine Blood (Negative) Urine Nitrite (Negative) Urine Bilirubin (Negative) Urine Urobilinogen (Normal) mg/dL Ur Leukocyte Esterase (Negative) Urine Microscopic RBC (0-3) per hpf Urine Microscopic WBC (0-3) per hpf Ur Squamous Epith Cells (None-Few) per lpf Urine Bacteria (None-Few) per hpf Hyaline Casts (None-Few) per lpf Ur Culture Indicated? (NO) Urine Osmolality 374 (300-1090) mOsm/kg Urine Sodium 89.6 mEq/L Stool Occult Bld Scrn Negative (Negative) A. baumannii (PCR) (Not Detect) Indy albicans (PCR) (Not Detect) C. glabrata (PCR) (Not Detect) C. krusei (PCR) (Not Detect) C. parapsilosis (PCR) (Not Detect) C. tropicalis (PCR) (Not Detect) Enterobacteriac sp PCR (Not Detect) E. cloacae complex PCR (Not Detect) Enterococcus sp PCR (Not Detect) E. coli (PCR) (Not Detect) H. influenzae (PCR) (Not Detect) Klebsiella oxytoca PCR (Not Detect) Klebsiella pneumoniae (Not Detect) List. monocytogenes PCR (Not Detect) N. meningitidis (PCR) (Not Detect) Proteus species (PCR) (Not Detect) Serratia marcescens PCR (Not Detect) Staphylococcus sp PCR (Not Detect) Staph aureus (PCR) (Not Detect) mecA-Methicil Res Gene (Not Detect) Streptococcus sp PCR (Not Detect) Group A Strep DNA (Not Detect) Group B Strep (PCR) (Not Detect) Strep pneumoniae (PCR) (Not Detect) P. aeruginosa (PCR) (Not Detect) Randee/B-Vanco Res Genes (Not Detect) KPC (blaKPC) Detect PCR (Not Detect) 08/31/18 08/31/18 Range/Units 20:03 19:21 Urine Color Yellow (Yellow) Urine Clarity Cloudy A (Clear) Urine pH 7.0 (5.0-8.0) pH Units Ur Specific [place] 1.009 L (1.010-1.025) Urine Protein Negative (Neg-Trace) mg/dL Urine Glucose (UA) Normal (Normal) mg/dL Urine Ketones Negative (Negative) mg/dL Urine Blood Negative (Negative) Urine Nitrite Negative (Negative) Urine Bilirubin Negative (Negative) Urine Urobilinogen Normal (Normal) mg/dL Ur Leukocyte Esterase Negative (Negative) Urine Microscopic RBC 0-3 (0-3) per hpf Urine Microscopic WBC 0-3 (0-3) per hpf Ur Squamous Epith Cells None Seen (None-Few) per lpf Urine Bacteria None Seen (None-Few) per hpf Hyaline Casts None Seen (None-Few) per lpf Ur Culture Indicated? NO (NO) Urine Osmolality (300-1090) mOsm/kg Urine Sodium mEq/L Stool Occult Bld Scrn (Negative) A. baumannii (PCR) Not Detected (Not Detect) Indy albicans (PCR) Not Detected (Not Detect) C. glabrata (PCR) Not Detected (Not Detect) C. krusei (PCR) Not Detected (Not Detect) C. parapsilosis (PCR) Not Detected (Not Detect) C. tropicalis (PCR) Not Detected (Not Detect) Enterobacteriac sp PCR Not Detected (Not Detect) E. cloacae complex PCR Not Detected (Not Detect) Enterococcus sp PCR Not Detected (Not Detect) E. coli (PCR) Not Detected (Not Detect) H. influenzae (PCR) Not Detected (Not Detect) Klebsiella oxytoca PCR Not Detected (Not Detect) Klebsiella pneumoniae Not Detected (Not Detect) List. monocytogenes PCR Not Detected (Not Detect) N. meningitidis (PCR) Not Detected (Not Detect) Proteus species (PCR) Not Detected (Not Detect) Serratia marcescens PCR Not Detected (Not Detect) Staphylococcus sp PCR DETECTED A (Not Detect) Staph aureus (PCR) Not Detected (Not Detect) mecA-Methicil Res Gene DETECTED A (Not Detect) Streptococcus sp PCR Not Detected (Not Detect) Group A Strep DNA Not Detected (Not Detect) Group B Strep (PCR) Not Detected (Not Detect) Strep pneumoniae (PCR) Not Detected (Not Detect) P. aeruginosa (PCR) Not Detected (Not Detect) Randee/B-Vanco Res Genes N/A (Not Detect) KPC (blaKPC) Detect PCR N/A (Not Detect) Consult Discharge Plan - Plan Referrals: Aamir Wilkinson DO [Partnered Physician] - 09/09/18 9:30 am - Attending Attestation I examined this patient and my medical decision-making was reviewed with the Resident Physician. I agree with the documented findings, disposition and treatment plan as described except to the extent set forth below. This is an addendum to original report dictated by Jessica Arboleda CNP. Please refer to 's note for full detail. Patient is a 72-year-old gentleman with extensive past medical history history of head and neck squamous cell carcinoma diagnosed 6 years ago multiple metastases requiring aggressive surgery of the face and neck and had metastases to the lung requiring a left lung lobectomy and also had metastases to the right knee requiring major debulking surgery and total knee replacement. Patient is registered and then an [facility] research study and has been receiving some kind of chemotherapy. He received 3 sessions so far lost 2 months. Patient tells me since he started this new treatment he has been having blackouts moments that have been witnessed by other people. He has had 3 so far with this by either his son and his brother or sister. No obvious seizure or myoclonic jerking. Patient came in for altered mental status confusion that was short lived and he feels that it is exactly what happened to him in the last 3 times. On admission patient had sepsis criteria. Patient had blood cultures obtained in 1 out of 2 sets were positive for coag-negative staph likely contaminant. Patient also has swollen erythematosus with chronic changes of the right knee that appears to be chronic unchanged from before as per patient. Patient was evaluated by orthopedics. Patient had a CT of the knee which showed fluid collection likely hematoma. Patient apparently is adamant about being at the [facility] on Thursday for his next infusion. He is scheduled for amputation above-knee down at [facility]. Review of system with the patient is otherwise unremarkable. Assessment and plan: Sepsis etiology not clear could be secondary to coag-negative bacteremia but less likely Swollen right knee that is chronic with no acute process and large fluid collection the CT scan concerning for hematoma versus other. Patient is a really scheduled for amputation this month at [facility] History of squamous cell carcinoma 6 years with multiple chemotherapy and multiple surgeries in the past Recommendations: After long discussion with the orthopedic surgeon with decided that aspirating the knee is high risk and we do not feel that this is the source of infection at this time. Plus the fact that even if it was a septic knee I spent to the patient that he will need IV antibiotics which come with this on risk of possible acute kidney injury and C. difficile colitis and if he could have an amputation maybe we can just expedite the process and sent to [place] so he can be evaluated by his own orthopedic surgeon. Apparently the hospice also is attempting to contact the loop tacker/oncologist at the [facility] for further recommendations.
--- NOTE | 2018-09-02 13:36 | Event Note ---
Date of Encounter: 09/02/18 Time of Encounter: 13:21 Spoke with patients oncologist Dr. Nielsen . I informed him of the patients current treatment course. He was in agreement with minimally invasive aspiration of suspected hematoma of the right distal thigh. He was also in agreement of involving ID for investigation of positive blood culture. He agreed that blood culture may have been contaminant. He also agreed with the importance of patient making his next chemotherapy appt, flight leaving Thursday. I informed him of neurology evaluation indicating encephalopathy rather than seizure activity. He stated he was happy to assist in the patients care if we had further questions.
[2018-09-02] MEDS ORDERED: MOM Conc 10 ML UD.LIQ PO PRN (21:51)
[2018-09-03] MEDS: *HR* OxyCODONE/APAP 10/325 TABLET PO SCH ×6 (01:34→21:42)
[2018-09-03] MEDS: *HR* Heparin 5,000 UNIT/ML VIAL SQ SCH ×3 (05:35→21:44)
[2018-09-03 06:34] LABS: Basophils % 0.3 %; Eosinophils % 0.2 %; Hematocrit 29.5 % (37.5-50.1); Hemoglobin 9.2 g/dL (12.9-16.9); Immature Granulocytes % 0.6 % (0-4); Lymphocytes # 0.9 K/mcL (0.6-4.6); Lymphocytes % 7.1 %; Mean Corpuscular HGB Conc 31.2 g/dL (31.6-35.5); Mean Corpuscular Hemoglobin 24.9 pg (28.0-33.3); Mean Corpuscular Volume 79.9 fL (83.0-100.0); Monocytes # 0.9 K/mcL (0.0-1.3); Monocytes % 7.4 %; Neutrophils # 10.4 K/mcL (1.6-8.9); Platelet Count 355 K/mcL (140-400); Red Blood Count 3.69 M/mcL (4.19-5.50); Red Cell Distribution Width 17.7 % (11.5-14.5); Segmented Neutrophils % 84.4 %
[2018-09-03 07:23] LABS: BUN/Creatinine Ratio 17 (6-26); Blood Urea Nitrogen 14 mg/dL (8-23); Calcium 9.5 mg/dL (8.6-10.3); Carbon Dioxide 24 mEq/L (23-29); Chloride 100 mEq/L (98-107); Glucose 144 mg/dL (70-105); Osmolality,Calculated 281 (280-300); Potassium 4.3 mEq/L (3.5-5.1); Sodium 134 mEq/L (136-145); eGFR For Non-African Americans > 60 (> 60)
[2018-09-03] MEDS: Insulin LISPRO 300 UNITS/3 ML VIAL SQ SCH ×4 (07:49→21:49)
--- NOTE | 2018-09-03 09:09 | Internal Med Progress Note ---
<Harinder Rose Yayo - Last Filed: 09/03/18 14:34> Hospitalist Progress Note - Encounter Date of Encounter: 09/03/18 Time of Encounter: 09:05 - Subjective Interval History: The patient states he feels very wel today and back to baseline. I discussed with the patient that his blood cultures appear to have cultured contaminant, but that he could still have infection in the knee. I also informed him that neurology work up was essentially non-specific revealing generalized encephalopathy. He stated that at this point his main goal is to make it to his chemotherapy appointment, and that if any of his treatment is non-emergent he would like to forego it in order to make it to [facility]. This includes his knee, which he states "is going to be cut off anyway". I informed him that I would speak with our consulting physicians to formulate a plan of care that would consider his goals. - Exam Vitals: Temp Pulse Resp BP Pulse Ox 98.3 F 66 14 147/80 99 09/03/18 06:31 09/03/18 06:31 09/03/18 06:31 09/03/18 06:31 09/03/18 06:31 Exam: Vitals: Reviewed and within normal limits General: Patient ambulating in room with assistance of cane. A&O x 3. No acute distress. Skin: Pale, warm. HEENT: Moist mucous membranes. + conjunctivae pallor. Neck: Surgically resected right cervical lymph nodes with no inflammatory signs present. Chest: Normal thoracic expansion. Normal breath sounds. Clear to auscultation. Heart: Normal S1 & S2; rhythmic. No rubs or murmurs. Abdomen: Non-distended, soft and non-tender to palpation. No peritoneal reaction. Extremities: Right knee swollen with hyperkeratosis. Neurological: Awake, oriented to person, place, and time. No focal deficits. - Assessment and Plan (1) Altered mental status Current Visit: Yes Status: Resolved Assessment and Plan: Initially seen for waxing and waning periods of delirium. Son mentioned at time of admission that patient was having altered mental status with shaking and did not remember episodes On exam at admission patient has moments of decreased responsiveness but then becomes alert and does not remember these episodes, also shaking Patient was initially given fluids and pain medication which improved clinical presentation. The following day patient was seen and exam findings were suspicious for seizure activity or other neurologic activity, neurology was consulted and brain mri showed mild small vessel ischemic changes bilaterally, few mall prior infarcts, no acute process. EEG showed slow posterior dominant rhythm consistent with mild generalized encephalopathy. Possible causes include toxic, infection, metablic, degenerative, medication effect. Gave thiamine. Infection more likely with knee source, being treated with Vancomycin Priority of patients treatment is to return to [facility] for chemotherapy Plan to monitor for negative repeat blood cultures, transition to oral Bactrim, and discharge Appreciate Infectious Disease and Neurology input (2) Sepsis Current Visit: Yes Status: Resolved Assessment and Plan: Patient initially presented with fever and leukocytosis. No clear etiology was identified. Blood cultures were drawn, empiric abx with Vanc/Zosyn and fluid resuscitation started 08/30. UA clear. CXR without consolidation. No meningeal signs present. No pressure ulcer. No indwelling port. Patient no longer meets sepsis criteria, labs and vitals stable Right knee remains possible source of infection, CT demonstrated likely hematoma at myotendinous junction of sartorius orthopedic surgery consulted to evaluate for possible aspiration and analysis Patient is also involved in experimental chemotherapy trial for lymphoma. This remains possible etiology for clinical picture. Blood cultures grew methicillin resistant staph epidermidis, likely contaminant ID recommendations as above (3) Malignancy Current Visit: Yes Status: Acute Assessment and Plan: history of metastatic squamous cell carcinoma of the head and neck. Patient currently in chemo as described above. Next chemo session scheduled for 09/06/18. (4) Elevated troponin Current Visit: Yes Status: Resolved Assessment and Plan: Likely in the setting of SIRS upon admission. No chest pain or ischemic electrocardiographic changes at admission, yesterday, or today. Elevated tr opinin has resolved. Will continue to monitor. (5) Anemia Current Visit: Yes Status: Suspected Assessment and Plan: Differential includes hematoma of thigh or chronic disease. Hgb stable. Unknown baseline. Stool occult negative. No other signs of active bleeding. Patient is not anticoagulated other than SubQ heparin for DVT propylaxis orthopedics was consulted to address hematoma, not planning intervention We will continue to monitor hemoglobin and replace as necessary Continue iron supplementation. (6) DVT prophylaxis Current Visit: Yes Status: Acute Assessment and Plan: continue SubQ Heparin. (7) Electrolyte abnormality Current Visit: Yes Status: Acute Assessment and Plan: Hyponatremic and hypochloremic with clinical evidence of dehydration on admission. Urine sodium 89.6 and osm 374. SIADH should also be under consideration if not responsive to fluids given his malignancy. Uric acid 4.2, tsh 4.3 . 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 Will continue to monitor and address as neccessary. (8) Right knee pain Current Visit: Yes Status: Chronic Assessment and Plan: Patient has history of chronic knee pain He had a right knee replacement in the past He was then found to have a tumor in the right knee that was surgically removed and irratiated the patient afterwards had another knee replacement due to repeated knee infections and radiation damage. Due to repeated infections and radiation changes the patient is scheduled to have above the knee amputation at [facility] this month Due to pain and swelling the knee was imaged this admission Blood cultures grew gram positive cocci, revealed to be contaminant CT revealed likely hematoma at myotendinous juncton at the sartorius Orthopedics was consulted for possible aspiration analysis. Decided against intervention. (9) Bullous pemphigoid Current Visit: Yes Status: Chronic Assessment and Plan: Pysician managing patient's chemotherapy reveiled patient has history of bullous pemphigoid He takes 5 mg predisone daily and has not had any recent lesions lesions in the past have appeared in the right knee and in the mouth after intubation This is one of the factors contributing upcoming AKA No current lesions noted (10) Acute metabolic encephalopathy Current Visit: Yes Status: Resolved Assessment and Plan: Plan as seen above - Time Spent with Patient Total time spent is greater than 50% in coordination of care (as documented) at patient's floor/unit and/or counseling patient: Internal Medicine: Result - Labs CBC & Chem 7: 09/03/18 06:23 09/03/18 06:23 Labs: Short CBC 09/02/18 09/03/18 Range/Units 09:03 06:23 WBC 11.8 H 12.3 H (4.3-11.1) K/mcL Hgb 9.3 L 9.2 L (12.9-16.9) g/dL Hct 30.1 L 29.5 L (37.5-50.1) % Plt Count 345 355 (140-400) K/mcL Neutrophils # 10.0 H 10.4 H (1.6-8.9) K/mcL BMP 09/02/18 09/03/18 09:03 06:23 Sodium 131 L 134 L Potassium 4.5 4.3 Chloride 97 L 100 Carbon Dioxide 29 24 BUN 15 14 Creatinine 0.86 0.84 Glucose 191 H 144 H Calcium 9.5 9.5 Consult Discharge Plan - Plan Referrals: Aamir Wilkinson DO [Partnered Physician] - 09/09/18 9:30 am <Kentrell Roman - Last Filed: 09/03/18 15:35> Hospitalist Progress Note - Encounter Date of Encounter: 09/03/18 - Exam Vitals: Temp Pulse Resp BP Pulse Ox 97.4 F L 73 15 132/77 100 09/03/18 14:07 09/03/18 14:07 09/03/18 14:07 09/03/18 14:07 09/03/18 14:07 - Assessment and Plan (1) Altered mental status Current Visit: Yes Status: Resolved (2) Elevated troponin Current Visit: Yes Status: Resolved (3) Anemia Current Visit: Yes Status: Suspected (4) Malignancy Current Visit: Yes Status: Acute (5) DVT prophylaxis Current Visit: Yes Status: Acute (6) Electrolyte abnormality Current Visit: Yes Status: Acute (7) Sepsis Current Visit: Yes Status: Resolved (8) Right knee pain Current Visit: Yes Status: Chronic (9) Bullous pemphigoid Current Visit: Yes Status: Chronic (10) Acute metabolic encephalopathy Current Visit: Yes Status: Resolved - Time Spent with Patient Total time spent is greater than 50% in coordination of care (as documented) at patient's floor/unit and/or counseling patient: Internal Medicine: Result - Labs CBC & Chem 7: 09/03/18 06:23 09/03/18 06:23 Labs: Short CBC 09/03/18 Range/Units 06:23 WBC 12.3 H (4.3-11.1) K/mcL Hgb 9.2 L (12.9-16.9) g/dL Hct 29.5 L (37.5-50.1) % Plt Count 355 (140-400) K/mcL Neutrophils # 10.4 H (1.6-8.9) K/mcL BMP 09/03/18 06:23 Sodium 134 L Potassium 4.3 Chloride 100 Carbon Dioxide 24 BUN 14 Creatinine 0.84 Glucose 144 H Calcium 9.5 - Attending Attestation I examined this patient and my medical decision-making was reviewed with the Res ident Physician on 09/03/18. I agree with the documented findings, disposition and treatment plan as described except to the extent set forth below. Mr Freed is currently admitted for acute encephalopathy most likely related to infection. He remains moderate to high risk due to potential for worsening clinical status. Mr Freed feels OK at this time. No fever or chills. At baseline mental status. No CP or SOB. Has been up in his room with cane. No GI issues. Exam Alert Comfortable Mucus membranes dry Heart reg and not tachy Lungs clear at this time Abd soft and nontender Knee less swollen I/P 1. Acute encephalopathy - resolved. 2. Second blood cx pending - if negative will discharge tomorrow. Has follow up in [facility] Thursday. 3. Sepsis - resolved 4. Anemia - H/H stable 5. R knee pain - Unchanged. Further diagnoses and plan as above. _ <Harinder Rose - Last Filed: 09/03/18 14:34> (1) Altered mental status Qualifiers: Altered mental status type: transient alteration of awareness Qualified Code(s): R40.4 - Transient alteration of awareness (2) Sepsis Qualifiers: Sepsis type: sepsis due to unspecified organism Qualified Code(s): A41.9 - Sepsis, unspecified organism (5) Anemia Qualifiers: Anemia type: other cause Other causes of anemia: chronic disease, neoplastic Qualified Code(s): D63.0 - Anemia in neoplastic disease (8) Right knee pain Qualifiers: Chronicity: chronic Qualified Code(s): M25.561 - Pain in right knee; G89.29 - Other chronic pain <Kentrell Roman - Last Filed: 09/03/18 15:35> (1) Altered mental status Qualifiers: Altered mental status type: transient alteration of awareness Qualified Code(s): R40.4 - Transient alteration of awareness (3) Anemia Qualifiers: Anemia type: other cause Other causes of anemia: chronic disease, neoplastic Qualified Code(s): D63.0 - Anemia in neoplastic disease (7) Sepsis Qualifiers: Sepsis type: sepsis due to unspecified organism Qualified Code(s): A41.9 - Sepsis, unspecified organism (8) Right knee pain Qualifiers: Chronicity: chronic Qualified Code(s): M25.561 - Pain in right knee; G89.29 - Other chronic pain
[2018-09-03] MEDS: predniSONE 5 MG TABLET PO SCH ×2 (09:32→21:42)
[2018-09-03] MEDS: Pregabalin 75 MG CAPSULE PO SCH ×2 (09:32→21:41)
[2018-09-03] MEDS: Thiamine (B-1) 100 MG TABLET PO SCH (09:32)
[2018-09-03] MEDS: Finasteride 5 MG TABLET PO SCH (09:33)
[2018-09-03] MEDS: Loratadine 10 MG TABLET PO SCH (09:33)
[2018-09-03] MEDS ORDERED: Aminoglycoside Consult 1 EACH MC ONE (10:03)
--- NOTE | 2018-09-03 14:03 | Infectious Disease Progress No ---
Date of Encounter: 09/03/18 Time of Encounter: 14:00 - Assessment and Plan (1) Sepsis Current Visit: Yes Status: Resolved The patient had 4 sepsis criteria on admission. Source unclear. The patient does have positive blood culture 1, but unclear if this was a true infection versus contaminant. The right knee is also a possible source. Improved. White blood cell count normalized initially, but is back up a little bit today. Tachycardia and tachypnea have resolved. He has been afebrile. Blood cultures drawn 08/31/18 are +1 out of 2 sets for Staph epi. Repeat blood cultures drawn set is pending. 2 sets were ordered, but one was discontinued by nursing. Recommendations: Await repeat cultures to finalize. If repeat cultures are negative, can likely transition to oral Bactrim until he can be evaluated by his surgeon in [place]. Would not recommend aspiration of the fluid collection at this point as it will likely not change the course of treatment since the patient is planning to undergo right AKA this month, although if there is concern that this is infected, he would likely benefit from the procedure being done sooner rather than later. Continue Vancomycin IV. Pharmacy to dose. Goal trough ~15. Duration of treatment depends on the clinical picture. Monitor renal function and for drug toxicity and dose-adjust antibiotics. Recommend maintaining close contact with the patient's oncologist in order to avoid jeopardizing his participation in the clinical trial. Qualifiers: Sepsis type: sepsis due to unspecified organism Qualified Code(s): A41.9 - Sepsis, unspecified organism (2) Bacteremia Current Visit: Yes Status: Acute Causative organism: Staph epi. Likely a contaminant. Blood cultures drawn 08/31/17 are positive 1/2 sets. Repeat blood cultures drawn 09/02/17 are pending x 1 set. Unlikely the cause of the patient's sepsis. (3) Right knee pain Current Visit: Yes Status: Chronic Chronic, but worsening over the past few weeks. CT of the right knee showed a large hyperdense fluid collection within the distal sartorius myotendinous junction concerning for a possible large hematoma. Total knee athroplasty noted without evidence of loosening or infection. Patient planning to undergo right AKA later this month per his team in [place] due to chronic knee pain and unable to undergo surgery. Unclear if this is the source of the patient's sepsis. Pain management per the primary team. Qualifiers: Chronicity: chronic Qualified Code(s): M25.561 - Pain in right knee; G89.29 - Other chronic pain (4) Altered mental status Current Visit: Yes Status: Resolved Likely secondary to sepsis. MRI of the brain negative for acute finding. Neurology consulted. [place] that OUTSOLE SKIVER infection unlikely cause. EEG showed encephalopathy, but no epileptic activity. Resolved. 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 Mets noted to the right posterior knee status post debulking and TKR 2015 followed by radiation. Mets noted to the right inguinal lymph node about two years ago. Completed 1 year of clinical trial chemo with improvement, but had recurrence 4 months after treatment stopped. Re-enrolled in [facility] clinical trial 8 weeks ago with IV Chemo [id number]. Planned for another round of chemo 09/06/18. (9) Bullous pemphigoid Current Visit: Yes Status: Chronic Chronic daily prednisone. - Subjective Interval history: Patient seen and examined. No acute events noted overnight. Patient states overall he feels well. Denies any fevers or chills or rigors. Denies chest pain, shortness of breath, or cough. Denies nausea, vomiting, diarrhea, or constipation. Denies abdominal pain or urinary complaints. Denies any oral thrush and skin lesions. Continues to complain of pain to the right knee that is unchanged. Infect Dis PN-Objective Data - Labs CBC & Chem 7: 09/03/18 06:23 09/03/18 06:23 Labs: Laboratory Results - last 24 hr 09/02/18 09/02/18 09/03/18 16:19 20:51 06:23 WBC 12.3 H RBC 3.69 L Hgb 9.2 L Hct 29.5 L MCV 79.9 L MCH 24.9 L MCHC 31.2 L RDW 17.7 H Plt Count 355 MPV 10.0 Immature Gran % 0.6 Seg Neutrophils % 84.4 Lymphocytes % 7.1 Monocytes % 7.4 Eosinophils % 0.2 Basophils % 0.3 Neutrophils # 10.4 H Lymphocytes # 0.9 Monocytes # 0.9 Eosinophils # 0.0 Basophils # 0.0 Sodium Potassium Chloride Carbon Dioxide BUN Creatinine Est GFR ( Amer) Est GFR (Non-Af Amer) BUN/Creatinine Ratio Glucose POC Glucose 233 H 141 H Calculated Osmolality Calcium 09/03/18 06:23 WBC RBC Hgb Hct MCV MCH MCHC RDW Plt Count MPV Immature Gran % Seg Neutrophils % Lymphocytes % Monocytes % Eosinophils % Basophils % Neutrophils # Lymphocytes # Monocytes # Eosinophils # Basophils # Sodium 134 L Potassium 4.3 Chloride 100 Carbon Dioxide 24 BUN 14 Creatinine 0.84 Est GFR ( Amer) > 60 Est GFR (Non-Af Amer) > 60 BUN/Creatinine Ratio 17 Glucose 144 H POC Glucose Calculated Osmolality 281 Calcium 9.5 Cultures: Cultures 08/31/18 19:21 Blood Culture - Final Peripheral Venipuncture Staphylococcus epidermidis 09/02/18 12:15 Blood Culture - Preliminary Peripheral Venipuncture Culture is incubating and being continuously nick tored for growth. Final report to follow. 08/31/18 19:55 Blood Culture - Preliminary Peripheral Venipuncture Culture is incubating and being continuously monitored for growth. Final report to follow. 08/31/18 19:30 Influenza Types A,B Antigen - Final Nasopharyngeal Serology 08/31/18 08/31/18 08/31/18 Range/Units 22:12 22:12 21:00 Urine Color (Yellow) Urine Clarity (Clear) Urine pH (5.0-8.0) pH Units Ur Specific [place] (1.010-1.025) Urine Protein (Neg-Trace) mg/dL Urine Glucose (UA) (Normal) mg/dL Urine Ketones (Negative) mg/dL Urine Blood (Negative) Urine Nitrite (Negative) Urine Bilirubin (Negative) Urine Urobilinogen (Normal) mg/dL Ur Leukocyte Esterase (Negative) Urine Microscopic RBC (0-3) per hpf Urine Microscopic WBC (0-3) per hpf Ur Squamous Epith Cells (None-Few) per lpf Urine Bacteria (None-Few) per hpf Hyaline Casts (None-Few) per lpf Ur Culture Indicated? (NO) Urine Osmolality 374 (300-1090) mOsm/kg Urine Sodium 89.6 mEq/L Stool Occult Bld Scrn Negative (Negative) A. baumannii (PCR) (Not Detect) Indy albicans (PCR) (Not Detect) C. glabrata (PCR) (Not Detect) C. krusei (PCR) (Not Detect) C. parapsilosis (PCR) (Not Detect) C. tropicalis (PCR) (Not Detect) Enterobacteriac sp PCR (Not Detect) E. cloacae complex PCR (Not Detect) Enterococcus sp PCR (Not Detect) E. coli (PCR) (Not Detect) H. influenzae (PCR) (Not Detect) Klebsiella oxytoca PCR (Not Detect) Klebsiella pneumoniae (Not Detect) List. monocytogenes PCR (Not Detect) N. meningitidis (PCR) (Not Detect) Proteus species (PCR) (Not Detect) Serratia marcescens PCR (Not Detect) Staphylococcus sp PCR (Not Detect) Staph aureus (PCR) (Not Detect) mecA-Methicil Res Gene (Not Detect) Streptococcus sp PCR (Not Detect) Group A Strep DNA (Not Detect) Group B Strep (PCR) (Not Detect) Strep pneumoniae (PCR) (Not Detect) P. aeruginosa (PCR) (Not Detect) Randee/B-Vanco Res Genes (Not Detect) KPC (blaKPC) Detect PCR (Not Detect) 08/31/18 08/31/18 Range/Units 20:03 19:21 Urine Color Yellow (Yellow) Urine Clarity Cloudy A (Clear) Urine pH 7.0 (5.0-8.0) pH Units Ur Specific [place] 1.009 L (1.010-1.025) Urine Protein Negative (Neg-Trace) mg/dL Urine Glucose (UA) Normal (Normal) mg/dL Urine Ketones Negative (Negative) mg/dL Urine Blood Negative (Negative) Urine Nitrite Negative (Negative) Urine Bilirubin Negative (Negative) Urine Urobilinogen Normal (Normal) mg/dL Ur Leukocyte Esterase Negative (Negative) Urine Microscopic RBC 0-3 (0-3) per hpf Urine Microscopic WBC 0-3 (0-3) per hpf Ur Squamous Epith Cells None Seen (None-Few) per lpf Urine Bacteria None Seen (None-Few) per hpf Hyaline Casts None Seen (None-Few) per lpf Ur Culture Indicated? NO (NO) Urine Osmolality (300-1090) mOsm/kg Urine Sodium mEq/L Stool Occult Bld Scrn (Negative) A. baumannii (PCR) Not Detected (Not Detect) Indy albicans (PCR) Not Detected (Not Detect) C. glabrata (PCR) Not Detected (Not Detect) C. krusei (PCR) Not Detected (Not Detect) C. parapsilosis (PCR) Not Detected (Not Detect) C. tropicalis (PCR) Not Detected (Not Detect) Enterobacteriac sp PCR Not Detected (Not Detect) E. cloacae complex PCR Not Detected (Not Detect) Enterococcus sp PCR Not Detected (Not Detect) E. coli (PCR) Not Detected (Not Detect) H. influenzae (PCR) Not Detected (Not Detect) Klebsiella oxytoca PCR Not Detected (Not Detect) Klebsiella pneumoniae Not Detected (Not Detect) List. monocytogenes PCR Not Detected (Not Detect) N. meningitidis (PCR) Not Detected (Not Detect) Proteus species (PCR) Not Detected (Not Detect) Serratia marcescens PCR Not Detected (Not Detect) Staphylococcus sp PCR DETECTED A (Not Detect) Staph aureus (PCR) Not Detected (Not Detect) mecA-Methicil Res Gene DETECTED A (Not Detect) Streptococcus sp PCR Not Detected (Not Detect) Group A Strep DNA Not Detected (Not Detect) Group B Strep (PCR) Not Detected (Not Detect) Strep pneumoniae (PCR) Not Detected (Not Detect) P. aeruginosa (PCR) Not Detected (Not Detect) Randee/B-Vanco Res Genes N/A (Not Detect) KPC (blaKPC) Detect PCR N/A (Not Detect) Exam - Constitutional Vitals: Temp Pulse Resp BP Pulse Ox 98.0 F 72 15 127/74 100 09/03/18 10:01 09/03/18 10:01 09/03/18 10:01 09/03/18 10:09/03/18 10:01 General appearance: average body habitus, cooperative, no acute distress - Head Head exam: Present: atraumatic, normal inspection, normocephalic - Eye Eye exam: Present: EOMI, normal appearance, PERRL Pupils: Present: normal accommodation - ENT ENT exam: Present: mucous membranes moist - Neck Neck exam: Present: normal inspection. Absent: meningismus - Respiratory Respiratory exam: Present: CTAB. Absent: rales, respiratory distress, rhonchi, wheezes - Cardiovascular Cardiovascular exam: Present: RRR, +S1, +S2 - GI/Abdominal GI/Abdominal exam: Present: normal bowel sounds, soft. Absent: distended, tenderness - Extremities Exam Extremities exam: Absent: normal inspection (Chronic skin changes and edema noted to the right knee with hyperkeratosis and tenderness on palpation.) - Neurological Exam Neurological exam: Present: alert, oriented X3, no focal deficits - Psychiatric Psychiatric exam: Present: normal affect, normal mood - Skin Skin exam: Present: dry, intact, normal color, warm Consult Discharge Plan - Plan Referrals: Aamir Wilkinson DO [Partnered Physician] - 09/09/18 9:30 am - Attending Attestation I examined this patient and my medical decision-making was reviewed with the Resident Physician. I agree with the documented findings, disposition and treatment plan as described except to the extent set forth below.
[2018-09-04] MEDS: *HR* OxyCODONE/APAP 10/325 TABLET PO SCH ×3 (01:47→09:39)
[2018-09-04] MEDS: *HR* Heparin 5,000 UNIT/ML VIAL SQ SCH (05:48)
[2018-09-04 07:35] VITALS: BP 125/76
[2018-09-04] MEDS: Insulin LISPRO 300 UNITS/3 ML VIAL SQ SCH (07:44)
--- NOTE | 2018-09-04 08:26 | Discharge Summary ---
- NOTES TO OUTPATIENT PROVIDER Notes to Outpatient Provider: Mr Freed was admitted with encephalopathy. To follow up with onc at [facility]. Orders not resulted at time of discharge: Pending orders 08/31/18 19:21 Culture,Blood [BC] Stat 09/02/18 11:22 Culture,Blood [BC] Routine 09/04/18 04:00 BMP [Basic Metabolic Panel] AM 0400 Complete Blood Count [HEME] AM 0400 09/04/18 08:00 Vancomycin,Trough Timed Date of Encounter: 09/04/18 Time of Encounter: 09:02 (n) - Discharge Diagnosis (1) Anemia Priority: Secondary Status: Suspected Qualifiers: Anemia type: other cause Other causes of anemia: chronic disease, neoplastic Qualified Code(s): D63.0 - Anemia in neoplastic disease (2) Malignancy Priority: Secondary Status: Chronic (3) Electrolyte abnormality Priority: Secondary Status: Acute (4) Sepsis Priority: Secondary Status: Resolved Qualifiers: Sepsis type: sepsis due to unspecified organism Qualified Code(s): A41.9 - Sepsis, unspecified organism (5) Right knee pain Priority: Secondary Status: Chronic Qualifiers: Chronicity: chronic Qualified Code(s): M25.561 - Pain in right knee; G89.29 - Other chronic pain (6) Bullous pemphigoid Priority: Secondary Status: Chronic (7) Acute metabolic encephalopathy Priority: Primary Status: Resolved Hospital course: Mr. Freed is a 72 year old male with hx of head and neck malignancy that is in trial of chemo at [facility] brought to ED due to acute encephalopathy. He was subsequently admitted. Mr Freed was admitted to [facility]. He was started on abx due to concern for sepsis/infection. He was evaluated by neurology. He was also seen by ortho due to issues with R knee and concern for infection. We were in constant contact with [facility]. Mr Freed had quick improvement in his mentation. He was evaluated by ID and started on PO abx when cultures were negative. Today he is afebrile and at baseline. He will be discharged on PO abx and follow with [facility] Thursday. Discharge discussed with: patient - Time Spent with Patient Total time spent providing and/or coordinating discharge services: 41min - Discharge Medications Prescriptions: Sulfamethoxazole/Trimeth DS [Bactrim DS] 1 each PO BID #10 tablet Home Medications: RX: DiphenhydraMINE [Benadryl] 25 mg PO HS 08/31/18 [History] RX: Ferrous Sulfate [Iron] 650 mg PO DAILY 08/31/18 [History] RX: Finasteride [Proscar] 5 mg PO DAILY 08/31/18 [History] RX: Levothyroxine [Synthroid] 75 mcg PO DAILY 08/31/18 [History] RX: Loratadine [Allergy Relief] 10 mg PO DAILY 08/31/18 [History] RX: Metformin HCl 1,000 mg PO BID 08/31/18 [History] RX: Naproxen [Naprosyn] 250 mg PO Q12H PRN 08/31/18 [History] RX: Omeprazole [PriLOSEC] 20 mg PO DAILY 08/31/18 [History] RX: OxyCODONE/APAP 10/325 [Percocet 10/325 MG] 1 tab PO Q4H PRN 08/31/18 [History] RX: Pregabalin [Lyrica] 150 mg PO BID 08/31/18 [History] RX: Simvastatin [Zocor] 20 mg PO HS 08/31/18 [History] RX: predniSONE [PredniSONE] 5 mg PO BID 08/31/18 [History] RX: Hydrocortisone 1% CREAM [Cortaid] 1 appl TP BID 09/01/18 [History] RX: Thiamine (B-1) [Vitamin B-1] 100 mg PO DAILY tablet 09/04/18 [Rx] Sulfamethoxazole/Trimeth DS [Bactrim DS] 1 each PO BID #10 tablet 09/04/18 [Rx] Allergies/Adverse Reactions: Allergy/AdvReac Type Severity Reaction Status Date / Time No Known Allergies Allergy Verified 08/31/18 19:22 Date of admission: 09/02/18 14:22 Primary care physician: PCP NONE Consults: 09/01/18 10:21 Consult to Neurology [CONS] Stat Consulting Provider: [facility] Reason for Consult: seizure like activity Time Notified: 10:30 Call Completed: Yes 09/01/18 15:59 Consult to Interpret Exam [CONS] Routine Consulting Provider: Cong Rodriguez Consult to Interpret Exam: Interpret EEG 09/01/18 20:17 Consult to Orthopedic Surgery [CONS] Routine Consulting Provider: Prosper Melara Reason for Consult: Abnormal CT of the right knee Call Completed: Yes 09/02/18 11:35 Consult to Infectious Diseases [CONS] Routine Consulting Provider: Infectious Disease [facility] Reason for Consult: Positive blood culture in patient on experimental cheomtherapy and possible soft tissue source. Time Notified: 11:36 Call Completed: No Discharging clinician: Kentrell Roman Anticipated date of discharge: 09/04/18 - Constitutional Vitals: Temp Pulse Resp BP Pulse Ox 98.1 F 68 16 125/76 98 09/04/18 07:33 09/04/18 07:33 09/04/18 07:33 09/04/18 07:33 09/04/18 07:33 Exam: See below - Head Head exam: Present: normocephalic - Eye Eye exam: Present: EOMI, conjuntiva pink - ENT ENT exam: Present: normal exam - Respiratory Respiratory exam: Present: CTAB. Absent: rales, rhonchi, wheezes - Cardiovascular Cardiovascular exam: Present: RRR. Absent: tachycardia - GI/Abdominal GI/Abdominal exam: Present: soft. Absent: tenderness - Extremities Exam Extremities exam: Present: warm - Neurological Exam Neurological exam: Present: alert, oriented X3 - Skin Skin exam: Present: dry, warm - Patient Status Disposition: Home, Self-Care Condition: Fair Functional capacity at discharge: independent ambulation Overall status at discharge: patient is progressing back to baseline - Discharge Instructions Follow Up With: Aamir Wilkinson DO [Partnered Physician] - 09/09/18 9:30 am - Diet and Activity Activity: increase activity as tolerated Diet: advance to your usual diet
[2018-09-04] MEDS: Pregabalin 75 MG CAPSULE PO SCH (08:36)
[2018-09-04] MEDS: Finasteride 5 MG TABLET PO SCH (08:36)
[2018-09-04] MEDS: Loratadine 10 MG TABLET PO SCH (08:37)
[2018-09-04] MEDS: Thiamine (B-1) 100 MG TABLET PO SCH (08:37)
[2018-09-04] MEDS: predniSONE 5 MG TABLET PO SCH (08:37)
[2018-09-04] MEDS ORDERED: Sulfamethoxazole/Trimeth DS 1 EACH TABLET PO ONE (09:12)
== END 2018-09-04 10:04 | disposition home or self-care (01) | DRG 871 ==
LOC: EMEROOARM 19:12 → 2NENU 19:12 → SUATTDRO 21:41 → 2NENU 22:36 → 3ANU 09-02 13:59
PROVIDERS: ADMIT Internal Medicine; ATTEND Internal Medicine

== ENCOUNTER 2018-09-30 10:04 | Inpatient (IN) ==
--- NOTE | 2018-09-30 10:31 | Emergency Department Note ---
Disposition Clinical Impression: Infection of knee Knee pain, right Qualifiers: Chronicity: acute Qualified Code(s): M25.561 - Pain in right knee Disposition: Admitted As Inpatient Condition: Fair Forms: ED Satisfaction Letter General Adult HPI - General Chief complaint: ED Wound/Laceration Stated complaint: Right leg infection Time Seen by Provider: 09/30/18 10:12 Source: patient Limitations: no limitations Nursing Notes Reviewed: Yes Vital Signs Reviewed: Yes - History of Present Illness HPI Narrative: 72 yo male with drainage from open lesion to R posterior knee. +history of metastatic cancer to R leg which has been treated with radiation and chemo. Pt is scheduled for AKA amputation of the RLE due to cancer not improving and multiple infections. Patient states that this surgery was [id number] for last week however it was not performed because the prosthetic had not arrived from [place]. His surgeon is at [facility] in [place]. Patient denies fever, chest pain, shortness of breath. He has had increasing pain and drainage from the right posterior knee over the past 3 days. He developed sepsis and was treated with IV antibiotics in the hospital and then discharged home. Does not take anticoagulant medication. Pain Scale: 5 - Related Data Home Medications Medication Instructions Recorded Confirmed DiphenhydraMINE [Benadryl] 25 mg PO HS 08/31/18 08/31/18 Ferrous Sulfate [Iron] 650 mg PO DAILY 08/31/18 08/31/18 Finasteride [Proscar] 5 mg PO DAILY 08/31/18 08/31/18 Levothyroxine [Synthroid] 75 mcg PO DAILY 08/31/18 08/31/18 Loratadine [Allergy Relief] 10 mg PO DAILY 08/31/18 08/31/18 Metformin HCl 1,000 mg PO BID 08/31/18 08/31/18 Naproxen [Naprosyn] 250 mg PO Q12H PRN 08/31/18 08/31/18 Omeprazole [PriLOSEC] 20 mg PO DAILY 08/31/18 08/31/18 OxyCODONE/APAP 10/325 [Percocet 1 tab PO Q4H PRN 08/31/18 08/31/18 10/325 MG] Pregabalin [Lyrica] 150 mg PO BID 08/31/18 08/31/18 Simvastatin [Zocor] 20 mg PO HS 08/31/18 08/31/18 predniSONE [PredniSONE] 5 mg PO BID 08/31/18 08/31/18 Hydrocortisone 1% CREAM [Cortaid] 1 appl TP BID 09/01/18 09/01/18 Previous Rx's Medication Instructions Recorded Sulfamethoxazole/Trimeth DS 1 each PO BID #10 tablet 09/04/18 [Bactrim DS] Thiamine (B-1) [Vitamin B-1] 100 mg PO DAILY tablet 09/04/18 Allergies Allergy/AdvReac Type Severity Reaction Status Date / Time No Known Allergies Allergy Verified 08/31/18 19:22 All systems ED: reviewed and negative except as stated. Review of Systems: As Per HPI Past Medical History - Past Medical History Attestation: Yes The following information was validated with the patient. Source: patient Medical history: Reports: cancer, diabetes, hyperlipidemia, hypertension, other Psychiatric history: Reports: no psych history - Social History Smoking Status: Former smoker Smokeless Tobacco Status: No Alcohol use: Reports: none Drug use: Reports: none Physical Exam General: Alert and in no acute distress Skin: Warm, dry, intact Head: Normocephalic and atraumatic Neck: Supple, trachea midline and no tenderness Cardiovascular: RRR, no murmur, normal perfusion Respiratory: CTAB, no wheezing, cough, or respiratory distress Musculoskeletal: Normal strength, swelling present to the right knee with chronic skin changes present. Patient does have active drainage of serous fluid with possible purulence from the right knee. Pulses equal in bilateral lower extremity. GI: Soft, nontender, nondistended. Bowel sounds present Neuro: A&O to person, place, time and situation. No focal deficits noted on exam Psychiatric: cooperative and appropriate mood and affect. - General Limitations: no limitations General appearance: alert, in no apparent distress Course Vital Signs Temperature 97.9 F 09/30/18 10:06 Pulse Rate 73 09/30/18 10:06 Respiratory Rate 16 09/30/18 10:06 Blood Pressure 141/78 09/30/18 10:06 O2 Sat by Pulse Oximetry 100 09/30/18 10:06 Temperature 97.9 F 09/30/18 10:06 Pulse Rate 73 09/30/18 10:06 Respiratory Rate 16 09/30/18 10:06 Blood Pressure 141/78 09/30/18 10:06 O2 Sat by Pulse Oximetry 100 09/30/18 10:06 Oxygen Delivery Oxygen Delivery Room Air Medical Decision Making - MDM Narrative Medical decision making narrative: CT of the right lower extremity shows possible hyperdense fluid collection versus a mass of the right knee. Due to the drainage from the area I am concerned about possible infection. He however does not have a fever and has a mild leukocytosis. Because he became septic in the past I gave him antibiotics and will admit him to the emergency department. I spoke with Dr. Melara and the interventional radiologist, Dr. Gabriel who will evaluate the patient in the hospital. - Medical Records Medical records reviewed: Yes I reviewed the patient's medical records. - Lab Data Lab results reviewed: Yes I reviewed the patient's lab results. Result diagrams: 09/30/18 10:57 09/30/18 10:57 Lab Results 09/30/18 09/30/18 09/30/18 Range/Units 10:57 10:57 10:57 WBC 12.0 H (4.3-11.1) K/mcL RBC 3.63 L (4.19-5.50) M/mcL Hgb 9.2 L (12.9-16.9) g/dL Hct 31.3 L (37.5-50.1) % MCV 86.2 D (83.0-100.0) fL MCH 25.3 L (28.0-33.3) pg MCHC 29.4 L (31.6-35.5) g/dL RDW 16.7 H (11.5-14.5) % Plt Count 350 (140-400) K/mcL MPV 10.2 (9.4-12.4) fL Immature Gran % 0.8 (0-4) % Seg Neutrophils % 82.1 % Lymphocytes % 6.3 % Monocytes % 9.8 % Eosinophils % 0.8 % Basophils % 0.2 % Neutrophils # 9.9 H (1.6-8.9) K/mcL Lymphocytes # 0.8 (0.6-4.6) K/mcL Monocytes # 1.2 (0.0-1.3) K/mcL Eosinophils # 0.1 (0.0-0.6) K/mcL Basophils # 0.0 (0.0-0.2) K/mcL ESR >= 130 H (0-10) mm/hr Sodium 132 L (136-145) mEq/L Potassium 4.2 (3.5-5.1) mEq/L Chloride 97 L (98-107) mEq/L Carbon Dioxide 26 (23-29) mEq/L BUN 16 (8-23) mg/dL Creatinine 0.85 (0.70-1.30) mg/dL Est GFR ( Amer) > 60 (> 60) Est GFR (Non-Af Amer) > 60 (> 60) BUN/Creatinine Ratio 19 (6-26) Glucose 215 H (70-105) mg/dL Calculated Osmolality 282 (280-300) Calcium 9.6 (8.6-10.3) mg/dL C-Reactive Protein 134 H (Less than 10) mg/L
[2018-09-30] MEDS ORDERED: Isovue-370 500 ML BOTTLE IVP ONE (10:50)
[2018-09-30 11:09] LABS: Basophils % 0.2 %; Eosinophils # 0.1 K/mcL (0.0-0.6); Eosinophils % 0.8 %; Hematocrit 31.3 % (37.5-50.1); Hemoglobin 9.2 g/dL (12.9-16.9); Immature Granulocytes % 0.8 % (0-4); Lymphocytes # 0.8 K/mcL (0.6-4.6); Lymphocytes % 6.3 %; Mean Corpuscular HGB Conc 29.4 g/dL (31.6-35.5); Mean Corpuscular Hemoglobin 25.3 pg (28.0-33.3); Mean Platelet Volume 10.2 fL (9.4-12.4); Monocytes # 1.2 K/mcL (0.0-1.3); Monocytes % 9.8 %; Neutrophils # 9.9 K/mcL (1.6-8.9); Platelet Count 350 K/mcL (140-400); Red Blood Count 3.63 M/mcL (4.19-5.50); Red Cell Distribution Width 16.7 % (11.5-14.5); Segmented Neutrophils % 82.1 %
[2018-09-30 11:10] LABS: Mean Corpuscular Volume 86.2 fL (83.0-100.0)
[2018-09-30 11:35] LABS: BUN/Creatinine Ratio 19 (6-26); Blood Urea Nitrogen 16 mg/dL (8-23); C-Reactive Protein 134 mg/L (Less than 10); Calcium 9.6 mg/dL (8.6-10.3); Carbon Dioxide 26 mEq/L (23-29); Chloride 97 mEq/L (98-107); Glucose 215 mg/dL (70-105); Osmolality,Calculated 282 (280-300); Potassium 4.2 mEq/L (3.5-5.1); Sodium 132 mEq/L (136-145); eGFR For Non-African Americans > 60 (> 60)
[2018-09-30] MEDS ORDERED: Piperacillin/Tazobactam 3.375 GM in 0.9 % Sodium Chloride Mini Bag 100 ML IVPB ONE (13:22)
[2018-09-30] MEDS ORDERED: Vancomycin 1,000 MG in D5% in Water 250 ML IVPB ONE (13:22)
[2018-09-30] MEDS ORDERED: Naloxone 0.4 MG/ML INJ IVP PRN (17:33)
[2018-09-30] MEDS ORDERED: *HR* Dextrose 50 % in Water (Syg) 50 ML SYRINGE IVP PRN (20:39)
[2018-09-30] MEDS ORDERED: D5% in Water 1,000 ML IVC PRN (20:39)
[2018-09-30] MEDS ORDERED: Dextrose Gel 15 GM/37.5 ML TUBE PO PRN ×2 (20:39)
[2018-09-30 21:02] LABS: Estimated Average Glucose 157 mg/dl; Hemoglobin A1C 7.1 %
--- NOTE | 2018-09-30 21:04 | Internal Med History&Physical ---
Date of Encounter: 09/30/18 Time of Encounter: 19:00 Internal Medicine - H&P: HPI Chief complaint: Drainage from the right knee... Admitted From: Home Plans for Post Hospital Care: Home History of present illness: The patient is a 72-year-old male. He was diagnosed with an advanced head and neck cancer about 2 years ago. His primary lesion was on the right side of his neck; with metastases to his left lung and right lower extremity. Subsequently, he had surgery to remove the cancer from his neck; followed by left lower lobectomy. Then, he received radiation treatments to multiple parts of his body including neck, head, chest and right leg. He has been getting an experimental chemotherapy from [facility] for the last 1 year and a half. It happens every 2 weeks. The patient had his right knee replaced about 2 years agofor treatment of his severe DJD. The surgery was not successful. He could not get through physical therapy, as he had a lot of pain. Subsequently, he had that knee replaced again several months later. The surgery was not successful again. He continues to have a lot of pain in the area of his right knee and above. Very recently his treatment team decided for above-knee amputation of right lower extremity. The surgery is intended to help his pain and to stop growing his cancer in the leg. The surgery was supposed to be a few days ago. It did not happen as his prosthesis had not arrived from [place]. He has had some draining from posterior aspect of his right knee for about 2 days. It is not associated with any fever or chills. It is not associated with increased swelling or redness in the area of the joint. He can walk with a cane. PAST MEDICAL HX: He has been treated for advanced head and neck cancersee above. His other medical problems include type 2 diabetes mellitus, hypertension, hyperlipidemia, hypothyroidism, GERD and BPH. His surgeries are mentioned below. PAST FAMILY HX: Positive for diabetes mellitus and hypertension. PAST SOCIAL HX: See below REVIEW OF SYSTEMS: All 14 organ systems were reviewed by me with the patient. Positive and pertinent negative findings are listed above. The rest of organ systems is neg ative. PHYSICAL EXAM: Skin: Free of rash and discoloration. There is a some deformity of right knee area. With some scar tissue and brownish discoloration. I cannot see any true swelling or redness. I can see some drainage from a small opening located behind the right knee. Musculoskeletal: It will be addressed by orthopedic surgery. Eyes: Sclera is white. There is no discharge from eyes. ENMT: Oral/pharyngeal mucosa is normal in appearance. There is no discharge from nose or ears. There is some deformity of his neck with a lot of tissue missing on the right side. There is quite a bit of scar tissue there. Respiratory: Normal breath sounds with no crackles and wheezes bilaterally. CV: Heart is regular with no gallop or murmur. GI: Abdomen is flat and soft with no palpable mass or visceromegaly. : There is no tenderness in patient's flanks bilaterally. Neuro exam: He has good strength in upper and lower extremities. He has normal eye movements. Psychiatric: He has normal affect. His thought process is appropriate to the situation. ADDITIONAL DATA: CT of the right knee is a limited study due to streak artifact from the patients arthroplasty hardware. It shows large hyperdense collection within the sartorius muscle measuring can five-point Free Sylvia 7.4 3014.3 cm in AP transverse and craniocaudal dimensions. Primary differential is for hematoma. CBC shows hemoglobin of 9.2 with WBC of 12.0 thousand and normal platelet count. Electrolytes are normal creatinine is 0.85. Random glucose 215. C-reactive protein is 134. A/P: Possible infection of the right knee with drainage. Orthopedic surgery is consulted. Blood cultures were taken. Will obtain culture from the drainage. I will continue IV vancomycin/IV Zosyn started in the emergency department. Ultimately, the patient will benefit from above-knee amputation of his right leg. Before it happened, we have to be sure that he will not develop sepsis. Head and neck cancer. We need to coordinate care about this problem with [facility]. He used to take chemotherapy every 2 weeks. Type 2 diabetes mellitus. I will switch him to insulin. His other problems are described by me above. They seem to be stable/controlled. Past Med Surg Social Fam HX - Past Medical History Medical history: cancer, diabetes, hyperlipidemia, hypertension, other Additional medical history: Brain and neck CA, BPH, Anemia, Psychiatric history: no psych history - Past Surgical History Additional surgical history: bilateral knee replacement, LL lobectomy, tumor in neck/back removed, AAA repair - Social History Smoking Status: Former smoker Smokeless Tobacco Status: No Alcohol use: none Drug use: none Internal Medicine - H&P: Meds DiphenhydraMINE [Benadryl] 25 mg PO HS 08/31/18 [History] Ferrous Sulfate [Iron] 650 mg PO DAILY 08/31/18 [History] Finasteride [Proscar] 5 mg PO DAILY 08/31/18 [History] Levothyroxine [Synthroid] 75 mcg PO DAILY 08/31/18 [History] Loratadine [Allergy Relief] 10 mg PO DAILY 08/31/18 [History] Metformin HCl 1,000 mg PO BID 08/31/18 [History] Naproxen [Naprosyn] 250 mg PO Q12H PRN 08/31/18 [History] Omeprazole [PriLOSEC] 20 mg PO DAILY 08/31/18 [History] OxyCODONE/APAP 10/325 [Percocet 10/325 MG] 1 tab PO Q4H PRN 08/31/18 [History] Pregabalin [Lyrica] 150 mg PO BID 08/31/18 [History] Simvastatin [Zocor] 20 mg PO HS 08/31/18 [History] predniSONE [PredniSONE] 5 mg PO BID 08/31/18 [History] Hydrocortisone 1% CREAM [Cortaid] 1 appl TP BID 09/01/18 [History] Sulfamethoxazole/Trimeth DS [Bactrim DS] 1 each PO BID #10 tablet 09/04/18 [Rx] Thiamine (B-1) [Vitamin B-1] 100 mg PO DAILY tablet 09/04/18 [Rx] Allergy/AdvReac Type Severity Reaction Status Date / Time No Known Allergies Allergy Verified 08/31/18 19:22 - Constitutional Vitals: Temp Pulse Resp BP Pulse Ox 97.9 F 69 14 133/79 100 09/30/18 18:50 09/30/18 18:50 09/30/18 18:50 09/30/18 18:50 09/30/18 18:50 General appearance: Present: A&O X 3, no acute distress, answers questions appropriately Exam: xx Internal Med - H&P Results - Labs CBC & Chem 7: 09/30/18 10:57 09/30/18 10:57 Labs: Short CBC 09/30/18 Range/Units 10:57 WBC 12.0 H (4.3-11.1) K/mcL Hgb 9.2 L (12.9-16.9) g/dL Hct 31.3 L (37.5-50.1) % Plt Count 350 (140-400) K/mcL Neutrophils # 9.9 H (1.6-8.9) K/mcL BMP 09/30/18 10:57 Sodium 132 L Potassium 4.2 Chloride 97 L Carbon Dioxide 26 BUN 16 Creatinine 0.85 Glucose 215 H Calcium 9.6 - Impressions ITS Impressions Knee CT 09/30/18 10:50 IMPRESSION: Limited study due to streak artifact from the patient's arthroplasty hardware. Large hyperdense collection within the sartorius muscle measuring 5.3 x 7.4 x 14.3 cm in AP, transverse, and craniocaudal dimensions. Primary differential consideration is for hematoma. Superimposed infection is possible given the provided history. D/ / Wolfgang Singh MD / Wolfgang Singh MD Interpreting Provider: Wolfgang Singh MD - Assessment and plan (1) Infection of right knee Current Visit: Yes Status: Acute (2) Head and neck cancer Current Visit: Yes Status: Chronic (3) Type 2 diabetes mellitus Current Visit: Yes Status: Acute Qualifiers: Diabetes mellitus termite renewal inspector insulin use: without termite renewal inspector use Diabetes mellitus complication status: without complication Qualified Code(s): E11.9 - Type 2 diabetes mellitus without complications (4) GERD (gastroesophageal reflux disease) Current Visit: Yes Status: Chronic Qualifiers: Esophagitis presence: esophagitis presence not specified Qualified Code(s): K21.9 - Gastro-esophageal reflux disease without esophagitis - Time Spent With Patient Total time spent is greater than 50% in coordination of care (as documented) at patient's floor/unit and/or counseling patient: Greater than 35 minutes - VTE Deep Vein Thrombosis/Pulmonary Embolism Present on Admission: No
[2018-09-30] MEDS: Insulin LISPRO 300 UNITS/3 ML VIAL SQ SCH (21:32)
--- NOTE | 2018-09-30 23:23 | Orthopedics Progress Note ---
Date of Encounter: 09/30/18 Time of Encounter: 23:19 Subjective Principal diagnosis: Periprosthetic infection right knee Interval history: This is a 72-year-old gentleman with an unfortunate course of an unsuccessful right total knee arthroplasty. Patient has a head and neck cancer that has been treated with new protocols at the [facility]. The patient had undergone a knee replacement that was unsuccessful and ultimately required revision. This also was unsuccessful due to cancer being present in the knee and now has had recurrent infection and is scheduled for a above-knee amputation at [facility]. Surgery was scheduled for just recently but was canceled due to the unavailability of the prosthesis. This time the patient is not is extreme is some does not appear to be septic. I would not proceed with any intervention from a surgical point of view at this time. We will try to control any infection with antibiotics. We will await definitive treatment in the form of an above knee amputation as anticipated at [facility] when a AKA prosthesis is available. Can offer a full consult if desired. Can see my full consult from his visit approximate 4 weeks ago. Thank you, Prosper Melara,DO Objective Vital signs: Vital Signs Temp Pulse Resp BP Pulse Ox 09/30/18 21:50 97.7 F 63 16 141/70 99 09/30/18 18:50 97.9 F 69 14 133/79 100 09/30/18 16:19 75 18 100 09/30/18 10:06 97.9 F 73 16 141/78 100 Intake and Output 09/30/18 09/30/18 09/30/18 07:59 15:59 23:59 Intake Total 240 / 240 Output Total 0 / 0 Balance 240 / 240 Intake: Oral 240 / 240 Output: Urine 0 / 0 Other: Percent of Meal Consumed 100% Weight 70.307 kg Blood Glucose* 233 Patient Weight 09/30/18 23:59 Weight 70.307 kg - Labs CBC & BMP: 09/30/18 10:57 09/30/18 10:57 Labs: Abnormal lab results WBC 12.0 K/mcL (4.3-11.1) H 09/30/18 10:57 RBC 3.63 M/mcL (4.19-5.50) L 09/30/18 10:57 Hgb 9.2 g/dL (12.9-16.9) L 09/30/18 10:57 Hct 31.3 % (37.5-50.1) L 09/30/18 10:57 MCH 25.3 pg (28.0-33.3) L 09/30/18 10:57 MCHC 29.4 g/dL (31.6-35.5) L 09/30/18 10:57 RDW 16.7 % (11.5-14.5) H 09/30/18 10:57 Neutrophils # 9.9 K/mcL (1.6-8.9) H 09/30/18 10:57 ESR >= 130 mm/hr (0-10) H 09/30/18 10:57 Sodium 132 mEq/L (136-145) L 09/30/18 10:57 Chloride 97 mEq/L (98-107) L 09/30/18 10:57 Glucose 215 mg/dL (70-105) H 09/30/18 10:57 POC Glucose 233 mg/dL (70-99) H 09/30/18 20:25 Hemoglobin A1c 7.1 % (-5.6) H 09/30/18 10:57 C-Reactive Protein 134 mg/L (Less than 10) H 09/30/18 10:57 - VTE Deep Vein Thrombosis/Pulmonary Embolism Present on Admission: No Consult Discharge Plan - Plan Referrals: Aamir Wilkinson DO [Primary Care Provider] -
[2018-09-30] MEDS: Piperacillin/Tazobactam 3.375 GM in 0.9 % Sodium Chloride Mini Bag 100 ML IVPB SCH (23:52)
[2018-09-30] MEDS: *HR* OxyCODONE/APAP 10/325 TABLET PO PRN (23:52)
[2018-10-01] MEDS: Piperacillin/Tazobactam 3.375 GM in 0.9 % Sodium Chloride Mini Bag 100 ML IVPB SCH ×2 (08:40→16:10)
[2018-10-01] MEDS: Insulin LISPRO 300 UNITS/3 ML VIAL SQ SCH ×4 (08:40→21:20)
[2018-10-01] MEDS: predniSONE 5 MG TABLET PO SCH (08:41)
[2018-10-01] MEDS: Thiamine (B-1) 100 MG TABLET PO SCH (08:41)
[2018-10-01] MEDS: Pregabalin 75 MG CAPSULE PO SCH ×2 (08:41→20:36)
[2018-10-01] MEDS: *HR* OxyCODONE/APAP 10/325 TABLET PO PRN ×2 (08:41→16:10)
[2018-10-01] MEDS: Loratadine 10 MG TABLET PO SCH (08:41)
[2018-10-01] MEDS: *HR* OxyCODONE/APAP 10/325 TABLET PO SCH (20:36)
[2018-10-01] MEDS ORDERED: Finasteride 5 MG TABLET PO SCH (21:00)
[2018-10-02] MEDS: Piperacillin/Tazobactam 3.375 GM in 0.9 % Sodium Chloride Mini Bag 100 ML IVPB SCH ×3 (00:53→15:53)
[2018-10-02] MEDS: *HR* OxyCODONE/APAP 10/325 TABLET PO SCH ×3 (06:42→18:04)
[2018-10-02] MEDS: Loratadine 10 MG TABLET PO SCH (08:10)
[2018-10-02] MEDS: predniSONE 5 MG TABLET PO SCH (08:10)
[2018-10-02] MEDS: Pregabalin 75 MG CAPSULE PO SCH (08:10)
[2018-10-02] MEDS: Thiamine (B-1) 100 MG TABLET PO SCH (08:10)
[2018-10-02] MEDS: Insulin LISPRO 300 UNITS/3 ML VIAL SQ SCH ×3 (08:14→18:04)
--- NOTE | 2018-10-02 08:54 | Internal Med Progress Note ---
Hospitalist Progress Note - Encounter Date of Encounter: 10/01/18 Time of Encounter: 19:00 - Subjective Interval History: SUBJECTIVE: The patient feels pretty good. His right leg pain seems to be under control. He continues to have drainage from the posterior portion of that joint. Denies fever and chills. He is afebrile. OBJECTIVE: Skin: Free of rash and discoloration. Her description of his right leg see my H&P from yesterday. ENMT: Oral/pharyngeal mucosa is normal in appearance. Eyes: Sclera is white. There is no discharge from eyes. Respiratory: Normal breath sounds; no crackles or wheezes. CV: Heart is regular; no gallop or murmur. GI: Abdomen is soft and not tender. There is no palpable mass or visceromegaly. Neuro: There is no focal deficits. ADDITIONAL DATA: Blood cultures and culture from the draining fluid are pending. His fingersticks for glucose from today are 117, 129 and 281. ASSESSMENT AND PLAN: Possible infection of right knee. See notes from orthopedic surgery. I talked to a physician from [facility] today. We will keep him on IV vancomycin and IV Zosynwaiting for cultures. Head and neck cancer. He gets an experimental chemotherapy every 2 weeks at [facility]. The Is scheduled for October 05. Type 2 diabetes mellitus. Under fair control. To continue diabetic diet and when necessary Humalog. He was on metformin at home. The patient has some autoimmune disease. This is managed by [facility]. He gets prednisone at 5 mg daily. - Exam Vitals: Temp Pulse Resp BP Pulse Ox 98 F 79 16 132/77 93 10/02/18 07:16 10/02/18 07:16 10/02/18 07:16 10/02/18 07:16 10/02/18 07:16 Exam: xx - Assessment and Plan (1) Infection of right knee Current Visit: Yes Status: Acute (2) Head and neck cancer Current Visit: Yes Status: Chronic (3) Type 2 diabetes mellitus Current Visit: Yes Status: Acute (4) GERD (gastroesophageal reflux disease) Current Visit: Yes Status: Chronic - Time Spent with Patient Total time spent is greater than 50% in coordination of care (as documented) at patient's floor/unit and/or counseling patient: 25 - 35 minutes Plan of Care Discussed with: patient Internal Medicine: Result - Labs CBC & Chem 7: 09/30/18 10:57 09/30/18 10:57 - VTE Deep Vein Thrombosis/Pulmonary Embolism Present on Admission: No Consult Discharge Plan - Plan Referrals: Aamir Wilkinson DO [Primary Care Provider] - (3) Type 2 diabetes mellitus Qualifiers: Diabetes mellitus mcfp insulin use: without long term care pharmacist use Diabetes mellitus complication status: without complication Qualified Code(s): E11.9 - Type 2 diabetes mellitus without complications (4) GERD (gastroesophageal reflux disease) Qualifiers: Esophagitis presence: esophagitis presence not specified Qualified Code(s): K21.9 - Gastro-esophageal reflux disease without esophagitis
[2018-10-02] MEDS ORDERED: Ketorolac 30 MG/ML VIAL IVP ONE (11:41)
[2018-10-02 15:21] VITALS: BP 101/65
--- NOTE | 2018-10-02 15:28 | Discharge Summary ---
Orders not resulted at time of discharge: Pending orders 09/30/18 13:30 Culture,Blood [BC] Stat 09/30/18 21:17 Culture,Body Fluid [RM] Routine 10/03/18 13:00 Vancomycin,Trough Timed Date of Encounter: 10/02/18 Time of Encounter: 15:25 - Discharge Diagnosis (1) Infection of right knee Priority: Primary Status: Suspected (2) Head and neck cancer Priority: Primary Status: Chronic (3) Autoimmune disorder Priority: Secondary Status: Chronic (4) Type 2 diabetes mellitus Priority: Primary Status: Acute Qualifiers: Diabetes mellitus termite treater insulin use: without skilled nursing use Diabetes mellitus complication status: without complication Qualified Code(s): E11.9 - Type 2 diabetes mellitus without complications (5) GERD (gastroesophageal reflux disease) Priority: Secondary Status: Chronic Qualifiers: Esophagitis presence: esophagitis presence not specified Qualified Code(s): K21.9 - Gastro-esophageal reflux disease without esophagitis Hospital course: HOSPITAL COURSE: The patient is a 72-year-old male. He was diagnosed with head and neck cancer about 2 years ago. It was treated with surgery and radiation therapy. Then, he was started on experimental chemotherapy at [facility] in [place], [place]. His cancer is sporadic to at least 2 portions of his bodyhe had left lower lobectomy and growing mass in his right lower extremity. He had a total right knee replacement about 2 years ago. It did not work for himsubsequently, he had a revision. It is not working for him, either. He has a lot of pain when ambulating in the right lower extremity. It was recently decided by his team of doctors, that he will undergo above-knee amputation of his right leg. He is waiting for a special prosthesis coming from [place]. He does have some autoimmune disorder. He is taking prednisone at 5 mg by mouth daily. The patient was admitted to our hospital with drainage from posterior portion of his right kneestarted about 2 days before this hospitalization. Not associated with any fever or chills. We took blood cultures on 2 occasions. We started him on IV vancomycin and IV Zosyn. After 2 days the cultures are negative. We have not seen him having fever or chills. He does not look septic. His WBC count is 12,000. CT of the right knee with IV contrast was obtained. There is large hyperdense collection within the sartorius muscle measuring 5.7 and 37.4 very 14.3 cm in AP, transverse and craniocaudal dimensions. Primary differential consideration is for hematoma. Superimposed infection is possible given the provided history. After talking to a physician from his treating team, we decided for the patients discharge. The patient will be traveling to [place] tomorrow. His next chemotherapy is scheduled for after tomorrow. He will likely get above- knee amputation of his right leg shortly after this discharge. CONDITION AT DISCHARGE: The patient feels good. His pain is controlled with Percocet 10/325. Denies fever and chills. Denies chest pain and difficulty breathing. Denies abdominal pain, nausea and vomiting. He makes good amounts of urine. He continues to have drainage from the posterior aspect of his right knee. Skin: Free of rash and discoloration. There is quite a bit of scarring and discoloration of the area of the right knee. The size of the right knee is bigger than the size of his left knee. However, I cannot see any obvious swelling. There is a small area of discharge having diameter of about half an inch located medially on the posterior aspect of his right knee. The discharge is serosanguineous not purulent. Respiratory: Normal breath sounds with no crackles and wheezes bilaterally. CV: Heart is regular with no gallop or murmur. GI: Abdomen is flat and soft with no palpable mass or visceromegaly. Neuro exam: There is no focal deficits. Normal speech, swallowing and gait. SEE DISCHARGE ORDERS/MEDICATIONS Discharge discussed with: patient - Time Spent with Patient Total time spent providing and/or coordinating discharge services: Greater than 30 minutes (40 minutes...) - Discharge Medications Home Medications: DiphenhydraMINE [Benadryl] 25 mg PO HS 08/31/18 [History] Ferrous Sulfate [Iron] 650 mg PO DAILY 08/31/18 [History] Finasteride [Proscar] 5 mg PO HS 08/31/18 [History] Levothyroxine [Synthroid] 75 mcg PO DAILY 08/31/18 [History] Loratadine [Allergy Relief] 10 mg PO DAILY 08/31/18 [History] Naproxen [Naprosyn] 250 mg PO Q12H PRN 08/31/18 [History] Omeprazole [PriLOSEC] 20 mg PO DAILY 08/31/18 [History] predniSONE [PredniSONE] 5 mg PO DAILY 08/31/18 [History] Clobetasol Propionate 0.05% [Temovate] 1 appl TP DAILY PRN 10/01/18 [History] Dexamethasone [Decadron] 0.5 mg PO QID PRN 10/01/18 [History] Fluticasone Propionate Nasal [Flonase] 50 mcg NS DAILY 10/01/18 [History] Lisinopril [Zestril] 5 mg PO DAILY 10/01/18 [History] Magnesium Oxide [Magnesium] 400 mg PO BID 10/01/18 [History] Nystatin [Nystatin Suspension] 500,000 units PO QID PRN 10/01/18 [History] OxyCODONE/APAP 5/325 [Percocet 5/325 MG] 1 each PO Q6HR PRN 10/01/18 [History] Pregabalin [Lyrica] 150 mg PO BID 10/01/18 [History] Simvastatin [Zocor] 20 mg PO HS 10/01/18 [History] metFORMIN [Glucophage] 1,000 mg PO BIDWM 10/01/18 [History] Allergies/Adverse Reactions: Allergy/AdvReac Type Severity Reaction Status Date / Time No Known Allergies Allergy Verified 10/01/18 09:43 Date of admission: 09/30/18 17:35 Primary care physician: Joseph Wilkinson DO Consults: 09/30/18 17:43 Consult to Orthopedic Surgery [CONS] Routine Consulting Provider: Orthopedic and Sports Medicine Reason for Consult: SUSPECTED INFECTION OF RIGHT KNEE... Time Notified: 17:20 Call Completed: Yes Discharging clinician: Chi Nguyen Anticipated date of discharge: 10/02/18 - Constitutional Vitals: Temp Pulse Resp BP Pulse Ox 97.7 F 73 14 101/65 99 10/02/18 15:20 10/02/18 15:20 10/02/18 15:20 10/02/18 15:20 10/02/18 15:20 General appearance: Present: A&O X 3, no acute distress, answers questions appropriately Exam: xx - Patient Status Disposition: Home, Self-Care Condition: Fair Functional capacity at discharge: independent ambulation Overall status at discharge: patient is not back to baseline - Discharge Instructions Follow Up With: Aamir Wilkinson DO [Primary Care Provider] - Additional Instructions: FOLLOW-UP WITH HIS PHYSICIANS AT [facility] ON 10/04/18... - Diet and Activity Activity: increase activity as tolerated Diet: diabetic diet - VTE Reasons for not Prescribing Prophylaxis: Treatment not Indicated - Low risk for VTE Deep Vein Thrombosis/Pulmonary Embolism Present on Admission: No
[2018-10-02] MEDS ORDERED: 0.9 % Sodium Chloride 250 ML ONE (15:49)
[2018-10-02] MEDS ORDERED: Aminoglycoside Consult 1 EACH MC ONE (18:53)
== END 2018-10-02 18:54 | disposition home or self-care (01) | DRG 560 ==
LOC: 3ANU 10:04 → EMEROOARM 10:04 → SUATTDRO 15:30 → 3ANU 16:19 → SUATTDRO 17:35
PROVIDERS: ADMIT Student in an Organized Health Care Education/Training Program; ATTEND Internal Medicine

== ENCOUNTER 2018-10-03 21:48 | Observation (INO) ==
--- NOTE | 2018-10-03 22:11 | Emergency Department Note ---
Disposition Clinical Impression: Altered mental status Qualifiers: Altered mental status type: unspecified Qualified Code(s): R41.82 - Altered mental status, unspecified Disposition: Admitted As Inpatient Condition: Fair Forms: ED Satisfaction Letter Time of Disposition: :27 Altered Mental Status HPI - General Chief Complaint: ED Altered Mental Status Stated Complaint: AMS, RLE Edema Time Seen by Provider: 10/03/18 22:03 Source: patient, family Limitations: no limitations Nursing Notes Reviewed: Yes Vital Signs Reviewed: Yes - History of Present Illness HPI Narrative: Patient is a 72-year-old male presenting with altered mental status. Patient is brought in by his son. Per son, patient has history of neck and head cancer, currently being seen at [facility] for treatment, he was recently admitted to the hospital and discharge and 10/02/2018 for right lower extremity changes. It was decided at this discharge the patient would have a right lower leg amputation secondary to this disease. Patient's son states that today he had an episode where he was sitting in a chair, slumped over and then was not responding to questioning. He states that when he asked his father if he knew what his name was and could not answer. This lasted for a few minutes. In the room, the son states that he has been more fatigued and very tired today, no fevers or chills, no nausea or vomiting or abdominal pain. Patient states that currently, the patient does not seem at baseline, however he is answering questions, he says that he is not as alert as he usually is. There is been no fall, no trauma, the patient is not on anticoagulation medication. He states that the wound in his right leg is unchanged from prior. - Related Data Home Medications Medication Instructions Recorded Confirmed DiphenhydraMINE [Benadryl] 25 mg PO HS 08/31/18 10/01/18 Ferrous Sulfate [Iron] 650 mg PO DAILY 08/31/18 10/01/18 Finasteride [Proscar] 5 mg PO HS 08/31/18 10/01/18 Levothyroxine [Synthroid] 75 mcg PO DAILY 08/31/18 10/01/18 Loratadine [Allergy Relief] 10 mg PO DAILY 08/31/18 10/01/18 Naproxen [Naprosyn] 250 mg PO Q12H PRN 08/31/18 10/01/18 Omeprazole [PriLOSEC] 20 mg PO DAILY 08/31/18 09/30/18 predniSONE [PredniSONE] 5 mg PO DAILY 08/31/18 09/30/18 Clobetasol Propionate 0.05% 1 appl TP DAILY PRN 10/01/18 10/01/18 [Temovate] Dexamethasone [Decadron] 0.5 mg PO QID PRN 10/01/18 10/01/18 Fluticasone Propionate Nasal 50 mcg NS DAILY 10/01/18 10/01/18 [Flonase] Lisinopril [Zestril] 5 mg PO DAILY 10/01/18 10/01/18 Magnesium Oxide [Magnesium] 400 mg PO BID 10/01/18 10/01/18 Nystatin [Nystatin Suspension] 500,000 units PO QID PRN 10/01/18 10/01/18 OxyCODONE/APAP 5/325 [Percocet 1 each PO Q6HR PRN 10/01/18 10/01/18 5/325 MG] Pregabalin [Lyrica] 150 mg PO BID 10/01/18 10/01/18 Simvastatin [Zocor] 20 mg PO HS 10/01/18 10/01/18 metFORMIN [Glucophage] 1,000 mg PO BIDWM 10/01/18 10/01/18 Allergies Allergy/AdvReac Type Severity Reaction Status Date / Time No Known Allergies Allergy Verified 10/01/18 09:43 All systems ED: reviewed and negative except as stated. Review of Systems: As Per HPI Constitutional: Denies: fever, chills, weakness, weight change ENT ED: Denies: ear pain, throat pain, dental pain, hearing loss, epistaxis, congestion, dysphagia Cardiovascular: Denies: chest pain, palpitations, dyspnea on exertion, edema, syncope Respiratory: Denies: cough, dyspnea, wheezes, hemoptysis, stridor Gastrointestinal: Denies: abdominal pain, nausea, vomiting, diarrhea, constipation, hematemesis, melena, hematochezia Genitourinary: Denies: urgency Musculoskeletal: Denies: back pain Integumentary: Denies: rash Neurological: Reports: confusion. Denies: headache, weakness Endocrine: Reports: fatigue Past Medical History - Past Medical History Attestation: Yes The following information was validated with the patient. Source: patient Medical history: Reports: cancer, diabetes, hyperlipidemia, hypertension, other Psychiatric history: Reports: no psych history - Social History Smoking Status: Former smoker Smokeless Tobacco Status: No Alcohol use: Reports: none Drug use: Reports: none Physical Exam - General Limitations: no limitations General appearance: alert (Patient is aware of his name, he understands the month as well as the place that he is located currently, he is able to recognize his son in the room), in no apparent distress - Head Head exam: atraumatic, normocephalic, normal inspection - Eye Eye exam: Present: normal appearance, PERRL, EOMI - ENT ENT exam: normal exam, normal oropharynx, mucous membranes moist - Neck Neck exam: Present: normal inspection, full ROM, trachea midline - Chest Chest inspection: Present: normal inspection, symmetric chest wall rise - Cardiovascular Cardiovascular exam: Present: regular rate, normal rhythm, normal heart sounds - Abdominal Exam Abdominal exam: Present: soft, Non-Tender. Absent: tenderness, distention, gu arding, rebound, rigidity - Extremities Exam Extremities exam: Present: other (There is significant skin changes to the right leg and knee, per family this is unchanged from patient's baseline, current serosangionous drainage) - Expanded Lower Extremity Exam Neurovascular/Tendon exam: Present: normal capillary refill. Absent: motor deficit, sensory deficit - Neurological Exam Neurological exam: Present: alert, oriented X3, CN II-XII intact. Absent: motor sensory deficit - Psychiatric Psychiatric exam: Present: normal affect, normal mood - Skin Skin exam: Present: warm, dry, intact, normal color Course Vital Signs Temperature 99.7 F H 10/03/18 22:00 Pulse Rate 89 10/03/18 22:00 Respiratory Rate 16 10/03/18 22:00 Blood Pressure 129/76 10/03/18 22:00 O2 Sat by Pulse Oximetry 99 10/03/18 22:00 Temperature 99.7 F H 10/03/18 22:00 Pulse Rate 89 10/03/18 22:00 Respiratory Rate 16 10/03/18 22:00 Blood Pressure 129/76 10/03/18 22:00 O2 Sat by Pulse Oximetry 99 10/03/18 22:00 Oxygen Delivery Oxygen Delivery Room Air Altered Mental Status - MDM Narrative Medical decision making narrative: Patient is a 72-year-old male presenting with altered mental status. Patient has history of diabetes, active cancer, hypertension. Patient was recently seen and admitted on 10/02/2017 for right leg complications with plan for amputation. Per family in the room, today he had altered mental status episode which is continued however improved since initial event. On examination, patient is alert and oriented 3, however per son in the room, he is not at his baseline and seems somewhat more fatigued. CT of the head head was performed, chest x- ray shows no acute findings, CBC shows continued anemia, BMP shows continued and chronic changes, further blood work shows unchanged from baseline. Blood cultures were obtained. Urinalysis is no sign of infection. This point in time, given the patient's altered mental status as well as active disease state with the right leg changes, we will admit the patient further observation. - Medical Records Medical records reviewed: Yes I reviewed the patient's medical records. - Lab Data Lab results reviewed: Yes I reviewed the patient's lab results. Result diagrams: 10/03/18 22:37 10/03/18 22:37 Lab Results 10/03/18 10/03/18 10/03/18 Range/Units 22:35 22:37 22:37 WBC 14.9 H (4.3-11.1) K/mcL RBC 3.67 L (4.19-5.50) M/mcL Hgb 9.3 L (12.9-16.9) g/dL Hct 31.0 L (37.5-50.1) % MCV 84.5 (83.0-100.0) fL MCH 25.3 L (28.0-33.3) pg MCHC 30.0 L (31.6-35.5) g/dL RDW 17.1 H (11.5-14.5) % Plt Count 362 (140-400) K/mcL MPV 10.2 (9.4-12.4) fL Immature Gran % 0.7 (0-4) % Seg Neutrophils % 86.1 % Lymphocytes % 4.6 % Monocytes % 7.6 % Eosinophils % 0.7 % Basophils % 0.3 % Neutrophils # 12.8 H (1.6-8.9) K/mcL Lymphocytes # 0.7 (0.6-4.6) K/mcL Monocytes # 1.1 (0.0-1.3) K/mcL Eosinophils # 0.1 (0.0-0.6) K/mcL Basophils # 0.1 (0.0-0.2) K/mcL PT 13.2 H (9.4-12.1) Seconds INR 1.2 APTT 30.2 (26.0-36.0) Seconds Sodium (136-145) mEq/L Potassium (3.5-5.1) mEq/L Chloride (98-107) mEq/L Carbon Dioxide (23-29) mEq/L BUN (8-23) mg/dL Creatinine (0.70-1.30) mg/dL Est GFR ( Amer) (> 60) Est GFR (Non-Af Amer) (> 60) BUN/Creatinine Ratio (6-26) Glucose (70-105) mg/dL Calculated Osmolality (280-300) Lactic Acid 1.7 (0.5-2.2) mmol/L Calcium (8.6-10.3) mg/dL Total Bilirubin (0.3-1.0) mg/dL Direct Bilirubin (0.0-0.2) mg/dL Indirect Bilirubin (0.0-1.2) mg/dL AST (13-39) Units/L ALT (7-52) Units/L Alkaline Phosphatase (34-104) Units/L Troponin I (< 0.04) ng/mL Serum Total Protein (6.4-8.9) g/dL Albumin (3.5-5.7) g/dL Globulin (2.4-3.5) g/dL Albumin/Globulin Ratio (1.1-2.2) Urine Color (Yellow) Urine Clarity (Clear) Urine pH (5.0-8.0) pH Units Ur Specific [place] (1.010-1.025) Urine Protein (Neg-Trace) mg/dL Urine Glucose (UA) (Normal) mg/dL Urine Ketones (Negative) mg/dL Urine Blood (Negative) Urine Nitrite (Negative) Urine Bilirubin (Negative) Urine Urobilinogen (Normal) mg/dL Ur Leukocyte Esterase (Negative) Urine Microscopic RBC (0-3) per hpf Urine Microscopic WBC (0-3) per hpf Ur Squamous Epith Cells (None-Few) per lpf Urine Bacteria (None-Few) per hpf Hyaline Casts (None-Few) per lpf Ur Culture Indicated? (NO) 10/03/18 10/03/18 Range/Units 22:37 23:52 WBC (4.3-11.1) K/mcL RBC (4.19-5.50) M/mcL Hgb (12.9-16.9) g/dL Hct (37.5-50.1) % MCV (83.0-100.0) fL MCH (28.0-33.3) pg MCHC (31.6-35.5) g/dL RDW (11.5-14.5) % Plt Count (140-400) K/mcL MPV (9.4-12.4) fL Immature Gran % (0-4) % Seg Neutrophils % % Lymphocytes % % Monocytes % % Eosinophils % % Basophils % % Neutrophils # (1.6-8.9) K/mcL Lymphocytes # (0.6-4.6) K/mcL Monocytes # (0.0-1.3) K/mcL Eosinophils # (0.0-0.6) K/mcL Basophils # (0.0-0.2) K/mcL PT (9.4-12.1) Seconds INR APTT (26.0-36.0) Seconds Sodium 130 L (136-145) mEq/L Potassium 4.8 (3.5-5.1) mEq/L Chloride 101 (98-107) mEq/L Carbon Dioxide 27 (23-29) mEq/L BUN 17 (8-23) mg/dL Creatinine 0.93 (0.70-1.30) mg/dL Est GFR ( Amer) > 60 (> 60) Est GFR (Non-Af Amer) > 60 (> 60) BUN/Creatinine Ratio 18 (6-26) Glucose 244 H (70-105) mg/dL Calculated Osmolality 280 (280-300) Lactic Acid (0.5-2.2) mmol/L Calcium 9.1 (8.6-10.3) mg/dL Total Bilirubin 0.3 (0.3-1.0) mg/dL Direct Bilirubin 0.0 (0.0-0.2) mg/dL Indirect Bilirubin 0.3 (0.0-1.2) mg/dL AST 21 (13-39) Units/L ALT 16 (7-52) Units/L Alkaline Phosphatase 83 (34-104) Units/L Troponin I < 0.03 (< 0.04) ng/mL Serum Total Protein 7.1 (6.4-8.9) g/dL Albumin 3.1 L (3.5-5.7) g/dL Globulin 4.0 H (2.4-3.5) g/dL Albumin/Globulin Ratio 0.8 L (1.1-2.2) Urine Color Yellow (Yellow) Urine Clarity Clear (Clear) Urine pH 7.0 (5.0-8.0) pH Units Ur Specific [place] 1.011 (1.010-1.025) Urine Protein 30 H (Neg-Trace) mg/dL Urine Glucose (UA) 250 H (Normal) mg/dL Urine Ketones Negative (Negative) mg/dL Urine Blood Negative (Negative) Urine Nitrite Negative (Negative) Urine Bilirubin Negative (Negative) Urine Urobilinogen Normal (Normal) mg/dL Ur Leukocyte Esterase Negative (Negative) Urine Microscopic RBC 0-3 (0-3) per hpf Urine Microscopic WBC 0-3 (0-3) per hpf Ur Squamous Epith Cells Few (None-Few) per lpf Urine Bacteria None Seen (None-Few) per hpf Hyaline Casts None Seen (None-Few) per lpf Ur Culture Indicated? NO (NO) - Radiology Data Radiology results reviewed: Yes I reviewed the patient's radiology results. Chest X-Ray 10/03/18 22:27 IMPRESSION: No acute cardiopulmonary findings. Scattered bilateral pulmonary nodules correlate with prior exam, with larger nodules stable to increased in size-altogether suspicious for thoracic metastatic disease. D/ / Joseph Soliman / Joseph Soliman Interpreting Provider: Joseph Soliman Head CT 10/03/18 22:28 IMPRESSION: No acute intracranial abnormality. D/ / Joseph Soliman / Joseph Soliman Interpreting Provider: Joseph Soliman - EKG Data EKG attestation: Yes I reviewed and interpreted this EKG. EKG results narrative: EKG performed at 2239 with ventricular rate of 87, significant artifact at baseline, regular rhythm, normal axis, no ST segment elevation or depression is noted nonspecific T-wave changes. TPA Checklist - LKW: 3-4.5 hrs Add. Warnings/Precautions Patient/family understanding: The patient/family members have been counseled and understood the risk, benefit, and alternatives of treatment. Shay - Shay Situation: Demographics, MOA Background: Presenting Complaint, Relevant PMH, Meds, & Allergies Assessment: Vital Signs, Course and respsone to treatment, Exam Concerns, Patient/Family Expectation, Pertinant Lab Results, Outstanding Labs Recommendation: Barrier(s) to disposition, Recommendation based on pending studies, treatments, or consults Shay Report Given to: Dr. Randi Day Repor Time: 02:20 (accepted)
[2018-10-03 22:46] LABS: Basophils # 0.1 K/mcL (0.0-0.2); Basophils % 0.3 %; Eosinophils # 0.1 K/mcL (0.0-0.6); Eosinophils % 0.7 %; Hemoglobin 9.3 g/dL (12.9-16.9); Immature Granulocytes % 0.7 % (0-4); Lymphocytes # 0.7 K/mcL (0.6-4.6); Lymphocytes % 4.6 %; Mean Corpuscular Hemoglobin 25.3 pg (28.0-33.3); Mean Corpuscular Volume 84.5 fL (83.0-100.0); Mean Platelet Volume 10.2 fL (9.4-12.4); Monocytes # 1.1 K/mcL (0.0-1.3); Monocytes % 7.6 %; Neutrophils # 12.8 K/mcL (1.6-8.9); Platelet Count 362 K/mcL (140-400); Red Blood Count 3.67 M/mcL (4.19-5.50); Red Cell Distribution Width 17.1 % (11.5-14.5); Segmented Neutrophils % 86.1 %
[2018-10-03 22:54] LABS: INR 1.2; Prothrombin Time 13.2 Seconds (9.4-12.1)
[2018-10-03 22:57] LABS: Activated Partial Thrombo Time 30.2 Seconds (26.0-36.0)
[2018-10-03 23:08] LABS: Alanine Aminotransferase 16 Units/L (7-52); Albumin 3.1 g/dL (3.5-5.7); Albumin/Globulin Ratio 0.8 (1.1-2.2); Alkaline Phosphatase 83 Units/L (34-104); Aspartate Amino Transferase 21 Units/L (13-39); BUN/Creatinine Ratio 18 (6-26); Bilirubin,Indirect 0.3 mg/dL (0.0-1.2); Bilirubin,Total 0.3 mg/dL (0.3-1.0); Blood Urea Nitrogen 17 mg/dL (8-23); Calcium 9.1 mg/dL (8.6-10.3); Carbon Dioxide 27 mEq/L (23-29); Chloride 101 mEq/L (98-107); Glucose 244 mg/dL (70-105); Osmolality,Calculated 280 (280-300); Potassium 4.8 mEq/L (3.5-5.1); Sodium 130 mEq/L (136-145); Total Protein 7.1 g/dL (6.4-8.9); Troponin I < 0.03 ng/mL (< 0.04); eGFR For Non-African Americans > 60 (> 60)
[2018-10-04 00:35] LABS: Bilirubin,Urine Negative (Negative); Blood,Urine Negative (Negative); Clarity,Urine Clear (Clear); Color,Urine Yellow (Yellow); Glucose,Urine (UA) 250 mg/dL (Normal); Ketones,Urine Negative (Negative); Leukocyte Esterase,Urine Negative (Negative); Nitrite,Urine Negative (Negative); Protein,Urine 30 mg/dL (Neg-Trace); Specific Gravity,Urine 1.011 (1.010-1.025); Urobilinogen,Urine Normal (Normal)
[2018-10-04 00:36] LABS: Bacteria,Urine None Seen per hpf (None-Few); Hyaline Casts,Urine None Seen per lpf (None-Few); RBC,Urine 0-3 per hpf (0-3); Squamous Epithelial Cell,Urine Few per lpf (None-Few); WBC,Urine 0-3 per hpf (0-3)
[2018-10-04] MEDS ORDERED: *HR* OxyCODONE Immed Rel 5 MG TABLET PO PRN (03:05)
[2018-10-04] MEDS ORDERED: Naloxone 0.4 MG/ML INJ IVP PRN (03:05)
[2018-10-04] MEDS ORDERED: traMADol 50 MG TABLET PO PRN (03:05)
[2018-10-04] MEDS ORDERED: Acetaminophen 325 MG TABLET PO PRN (03:05)
[2018-10-04] MEDS ORDERED: 0.9 % Sodium Chloride 1,000 ML IVC SCH (03:15)
--- NOTE | 2018-10-04 03:29 | Emergency Department Note ---
Disposition Clinical Impression: Altered mental status Qualifiers: Altered mental status type: unspecified Qualified Code(s): R41.82 - Altered mental status, unspecified Disposition: Admitted As Inpatient Condition: Fair General Adult HPI - General Chief complaint: ED Altered Mental Status Stated complaint: AMS, RLE Edema Time Seen by Provider: 10/03/18 22:03 Source: patient, family Limitations: no limitations Nursing Notes Reviewed: Yes Vital Signs Reviewed: Yes - History of Present Illness Pain Scale: 0 - Related Data Home Medications Medication Instructions Recorded Confirmed DiphenhydraMINE [Benadryl] 25 mg PO HS 08/31/18 10/01/18 Ferrous Sulfate [Iron] 650 mg PO DAILY 08/31/18 10/01/18 Finasteride [Proscar] 5 mg PO HS 08/31/18 10/01/18 Levothyroxine [Synthroid] 75 mcg PO DAILY 08/31/18 10/01/18 Loratadine [Allergy Relief] 10 mg PO DAILY 08/31/18 10/01/18 Naproxen [Naprosyn] 250 mg PO Q12H PRN 08/31/18 10/01/18 Omeprazole [PriLOSEC] 20 mg PO DAILY 08/31/18 09/30/18 predniSONE [PredniSONE] 5 mg PO DAILY 08/31/18 09/30/18 Clobetasol Propionate 0.05% 1 appl TP DAILY PRN 10/01/18 10/01/18 [Temovate] Dexamethasone [Decadron] 0.5 mg PO QID PRN 10/01/18 10/01/18 Fluticasone Propionate Nasal 50 mcg NS DAILY 10/01/18 10/01/18 [Flonase] Lisinopril [Zestril] 5 mg PO DAILY 10/01/18 10/01/18 Magnesium Oxide [Magnesium] 400 mg PO BID 10/01/18 10/01/18 Nystatin [Nystatin Suspension] 500,000 units PO QID PRN 10/01/18 10/01/18 OxyCODONE/APAP 5/325 [Percocet 1 each PO Q6HR PRN 10/01/18 10/01/18 5/325 MG] Pregabalin [Lyrica] 150 mg PO BID 10/01/18 10/01/18 Simvastatin [Zocor] 20 mg PO HS 10/01/18 10/01/18 metFORMIN [Glucophage] 1,000 mg PO BIDWM 10/01/18 10/01/18 Allergies Allergy/AdvReac Type Severity Reaction Status Date / Time No Known Allergies Allergy Verified 10/01/18 09:43 Constitutional: Denies: fever, chills, weakness, weight change ENT ED: Denies: ear pain, throat pain, dental pain, hearing loss, epistaxis, congestion, dysphagia Cardiovascular: Denies: chest pain, palpitations, dyspnea on exertion, edema, syncope Respiratory: Denies: cough, dyspnea, wheezes, hemoptysis, stridor Gastrointestinal: Denies: abdominal pain, nausea, vomiting, diarrhea, constipation, hematemesis, melena, hematochezia Genitourinary: Denies: urgency Musculoskeletal: Denies: back pain Integumentary: Denies: rash Neurological: Reports: confusion. Denies: headache, weakness Endocrine: Reports: fatigue Past Medical History - Past Medical History Medical history: Reports: cancer, diabetes, hyperlipidemia, hypertension, other Psychiatric history: Reports: no psych history - Social History Smoking Status: Former smoker Smokeless Tobacco Status: No Alcohol use: Reports: none Drug use: Reports: none Physical Exam - General Limitations: no limitations General appearance: alert (Patient is aware of his name, he understands the month as well as the place that he is located currently, he is able to recognize his son in the room), in no apparent distress Course Vital Signs Temperature 99.7 F H 10/03/18 22:00 Pulse Rate 89 10/03/18 22:00 Respiratory Rate 16 10/03/18 22:00 Blood Pressure 129/76 10/03/18 22:00 O2 Sat by Pulse Oximetry 99 10/03/18 22:00 Temperature 99.7 F H 10/03/18 22:00 Pulse Rate 89 10/03/18 22:00 Respiratory Rate 16 10/03/18 22:00 Blood Pressure 129/76 10/03/18 22:00 O2 Sat by Pulse Oximetry 99 10/03/18 22:00 Oxygen Delivery Oxygen Delivery Room Air Medical Decision Making - Medical Records Medical records reviewed: Yes I reviewed the patient's medical records. - Lab Data Lab results reviewed: Yes I reviewed the patient's lab results. Result diagrams: 10/03/18 22:37 10/03/18 22:37 Lab Results 10/03/18 10/03/18 10/03/18 Range/Units 22:35 22:37 22:37 WBC 14.9 H (4.3-11.1) K/mcL RBC 3.67 L (4.19-5.50) M/mcL Hgb 9.3 L (12.9-16.9) g/dL Hct 31.0 L (37.5-50.1) % MCV 84.5 (83.0-100.0) fL MCH 25.3 L (28.0-33.3) pg MCHC 30.0 L (31.6-35.5) g/dL RDW 17.1 H (11.5-14.5) % Plt Count 362 (140-400) K/mcL MPV 10.2 (9.4-12.4) fL Immature Gran % 0.7 (0-4) % Seg Neutrophils % 86.1 % Lymphocytes % 4.6 % Monocytes % 7.6 % Eosinophils % 0.7 % Basophils % 0.3 % Neutrophils # 12.8 H (1.6-8.9) K/mcL Lymphocytes # 0.7 (0.6-4.6) K/mcL Monocytes # 1.1 (0.0-1.3) K/mcL Eosinophils # 0.1 (0.0-0.6) K/mcL Basophils # 0.1 (0.0-0.2) K/mcL PT 13.2 H (9.4-12.1) Seconds INR 1.2 APTT 30.2 (26.0-36.0) Seconds Sodium (136-145) mEq/L Potassium (3.5-5.1) mEq/L Chloride (98-107) mEq/L Carbon Dioxide (23-29) mEq/L BUN (8-23) mg/dL Creatinine (0.70-1.30) mg/dL Est GFR ( Amer) (> 60) Est GFR (Non-Af Amer) (> 60) BUN/Creatinine Ratio (6-26) Glucose (70-105) mg/dL Calculated Osmolality (280-300) Lactic Acid 1.7 (0.5-2.2) mmol/L Calcium (8.6-10.3) mg/dL Total Bilirubin (0.3-1.0) mg/dL Direct Bilirubin (0.0-0.2) mg/dL Indirect Bilirubin (0.0-1.2) mg/dL AST (13-39) Units/L ALT (7-52) Units/L Alkaline Phosphatase (34-104) Units/L Troponin I (< 0.04) ng/mL Serum Total Protein (6.4-8.9) g/dL Albumin (3.5-5.7) g/dL Globulin (2.4-3.5) g/dL Albumin/Globulin Ratio (1.1-2.2) Urine Color (Yellow) Urine Clarity (Clear) Urine pH (5.0-8.0) pH Units Ur Specific [place] (1.010-1.025) Urine Protein (Neg-Trace) mg/dL Urine Glucose (UA) (Normal) mg/dL Urine Ketones (Negative) mg/dL Urine Blood (Negative) Urine Nitrite (Negative) Urine Bilirubin (Negative) Urine Urobilinogen (Normal) mg/dL Ur Leukocyte Esterase (Negative) Urine Microscopic RBC (0-3) per hpf Urine Microscopic WBC (0-3) per hpf Ur Squamous Epith Cells (None-Few) per lpf Urine Bacteria (None-Few) per hpf Hyaline Casts (None-Few) per lpf Ur Culture Indicated? (NO) 10/03/18 10/03/18 Range/Units 22:37 23:52 WBC (4.3-11.1) K/mcL RBC (4.19-5.50) M/mcL Hgb (12.9-16.9) g/dL Hct (37.5-50.1) % MCV (83.0-100.0) fL MCH (28.0-33.3) pg MCHC (31.6-35.5) g/dL RDW (11.5-14.5) % Plt Count (140-400) K/mcL MPV (9.4-12.4) fL Immature Gran % (0-4) % Seg Neutrophils % % Lymphocytes % % Monocytes % % Eosinophils % % Basophils % % Neutrophils # (1.6-8.9) K/mcL Lymphocytes # (0.6-4.6) K/mcL Monocytes # (0.0-1.3) K/mcL Eosinophils # (0.0-0.6) K/mcL Basophils # (0.0-0.2) K/mcL PT (9.4-12.1) Seconds INR APTT (26.0-36.0) Seconds Sodium 130 L (136-145) mEq/L Potassium 4.8 (3.5-5.1) mEq/L Chloride 101 (98-107) mEq/L Carbon Dioxide 27 (23-29) mEq/L BUN 17 (8-23) mg/dL Creatinine 0.93 (0.70-1.30) mg/dL Est GFR ( Amer) > 60 (> 60) Est GFR (Non-Af Amer) > 60 (> 60) BUN/Creatinine Ratio 18 (6-26) Glucose 244 H (70-105) mg/dL Calculated Osmolality 280 (280-300) Lactic Acid (0.5-2.2) mmol/L Calcium 9.1 (8.6-10.3) mg/dL Total Bilirubin 0.3 (0.3-1.0) mg/dL Direct Bilirubin 0.0 (0.0-0.2) mg/dL Indirect Bilirubin 0.3 (0.0-1.2) mg/dL AST 21 (13-39) Units/L ALT 16 (7-52) Units/L Alkaline Phosphatase 83 (34-104) Units/L Troponin I < 0.03 (< 0.04) ng/mL Serum Total Protein 7.1 (6.4-8.9) g/dL Albumin 3.1 L (3.5-5.7) g/dL Globulin 4.0 H (2.4-3.5) g/dL Albumin/Globulin Ratio 0.8 L (1.1-2.2) Urine Color Yellow (Yellow) Urine Clarity Clear (Clear) Urine pH 7.0 (5.0-8.0) pH Units Ur Specific [place] 1.011 (1.010-1.025) Urine Protein 30 H (Neg-Trace) mg/dL Urine Glucose (UA) 250 H (Normal) mg/dL Urine Ketones Negative (Negative) mg/dL Urine Blood Negative (Negative) Urine Nitrite Negative (Negative) Urine Bilirubin Negative (Negative) Urine Urobilinogen Normal (Normal) mg/dL Ur Leukocyte Esterase Negative (Negative) Urine Microscopic RBC 0-3 (0-3) per hpf Urine Microscopic WBC 0-3 (0-3) per hpf Ur Squamous Epith Cells Few (None-Few) per lpf Urine Bacteria None Seen (None-Few) per hpf Hyaline Casts None Seen (None-Few) per lpf Ur Culture Indicated? NO (NO) - Radiology Data Radiology results reviewed: Yes I reviewed the patient's radiology results. Chest X-Ray 10/03/18 22:27 IMPRESSION: No acute cardiopulmonary findings. Scattered bilateral pulmonary nodules correlate with prior exam, with larger nodules stable to increased in size-altogether suspicious for thoracic metastatic disease. D/ / Joseph Soliman / Joseph Soliman Interpreting Provider: Joseph Soliman Head CT 10/03/18 22:28 IMPRESSION: No acute intracranial abnormality. D/ / Joseph Soliman / Joseph Soliman Interpreting Provider: Joseph Soliman - EKG Data EKG #1 EKG attestation: Yes I reviewed and interpreted this EKG. EKG results narrative: Normal sinus rhythm with ventricular rate of 87. Poor tracing quality with artifact. No definite ST segment elevation or depression. No arrhythmia or ectopy. Attestation Statement - Attestation Attestation: I, Vicente Ledesma MD, personally evaluated this patient and discussed their management with the resident physician. I reviewed the resident's note and agree with the documented findings, medical decision making, and plan of care. 72-year-old male who was just discharged from this hospital yesterday presents to the emergency department with a complaint of an episode of altered mental status. Patient has a history of cancer and has a chronic infection of the right leg. Family reports the plan was for him to return to [place] where he receives his cancer treatment and have the leg amputated. He had an episode this evening while sitting in a chair he slumped over and became unresponsive for several minutes. He then gradually came around but since the episode has been less alert than his normal baseline. On examination patient is a well-developed well-nourished elderly male in no acute distress. Patient is very drowsy and sleepy but responds to verbal stimuli and when awake and answers questions appropriately. No cyanosis or diaphoresis. Breath sounds are equal bilaterally. Heart regular. Abdomen soft with present bowel sounds. There is diffuse swelling of the right lower extremity from just above the knee down. There is chronic skin discoloration. There is weeping from a large area in the popliteal space. Labs reviewed. No acute abnormality on chest x-ray. Head CT negative. EKG shows normal sinus rhythm with ventricular rate of 87. Poor tracing quality with artifact. No definite ST segment elevation or depression. No arrhythmia or ectopy. The hospitalist, Dr. Bryan, was consulted and accepted admission of the patie nt.
--- NOTE | 2018-10-04 03:41 | Internal Med History&Physical ---
Date of Encounter: 10/04/18 Time of Encounter: 03:37 Internal Medicine - H&P: HPI Chief complaint: unresponsiveness Admitted From: Home Plans for Post Hospital Care: Home History of present illness: Mert Freed is a 72 year old man with a metastatic malignancy currently undergoing clinical trials at [facility] where he goes ever 2 weeks. He has been admitted here recently a couple of times, frequently seen to have transient episodes of confusion and unawareness with no inciting factors. He palacio s have hyponatremia which was once believed to be the cause but it is seen to be a chronic issue. He had a brain MRI done a month ago which showed no metastatic lesions. He comes in again brought in by his son stating he had an episode where he was sitting in his chair, slumped over and was not responsive for a few minutes. Other than fatigue, no other complaints were reported by the patient. On arrival to the ER, he seemed to have returned to baseline. His labs revealed an elevated leukocyte count, Hgb 9.3 and Na 130 all of which were not unusual from his baseline. He reports feeling well at this time and has no complaints. He denies any chest pain, shortness of breath, headache, dizziness or palpitations. He says he is scheduled for a flight to [place] this morning for his chemotherapy. His son has left and his [id number] wont be available to pick him up till this morning. Past Med Surg Social Fam HX - Past Medical History Medical history: cancer, diabetes, hyperlipidemia, hypertension, other Additional medical history: Brain and neck CA, BPH, Anemia, Psychiatric history: no psych history - Past Surgical History Additional surgical history: bilateral knee replacement, LL lobectomy, tumor in neck/back removed, AAA repair - Social History Smoking Status: Former smoker Smokeless Tobacco Status: No Alcohol use: none Drug use: none Internal Medicine - H&P: Meds DiphenhydraMINE [Benadryl] 25 mg PO HS 08/31/18 [History] Ferrous Sulfate [Iron] 650 mg PO DAILY 08/31/18 [History] Finasteride [Proscar] 5 mg PO HS 08/31/18 [History] Levothyroxine [Synthroid] 75 mcg PO DAILY 08/31/18 [History] Loratadine [Allergy Relief] 10 mg PO DAILY 08/31/18 [History] Naproxen [Naprosyn] 250 mg PO Q12H PRN 08/31/18 [History] Omeprazole [PriLOSEC] 20 mg PO DAILY 08/31/18 [History] predniSONE [PredniSONE] 5 mg PO DAILY 08/31/18 [History] Clobetasol Propionate 0.05% [Temovate] 1 appl TP DAILY PRN 10/01/18 [History] Dexamethasone [Decadron] 0.5 mg PO QID PRN 10/01/18 [History] Fluticasone Propionate Nasal [Flonase] 50 mcg NS DAILY 10/01/18 [History] Lisinopril [Zestril] 5 mg PO DAILY 10/01/18 [History] Magnesium Oxide [Magnesium] 400 mg PO BID 10/01/18 [History] Nystatin [Nystatin Suspension] 500,000 units PO QID PRN 10/01/18 [History] OxyCODONE/APAP 5/325 [Percocet 5/325 MG] 1 each PO Q6HR PRN 10/01/18 [History] Pregabalin [Lyrica] 150 mg PO BID 10/01/18 [History] Simvastatin [Zocor] 20 mg PO HS 10/01/18 [History] metFORMIN [Glucophage] 1,000 mg PO BIDWM 10/01/18 [History] Allergy/AdvReac Type Severity Reaction Status Date / Time No Known Allergies Allergy Verified 10/01/18 09:43 All Systems PM: A 10-system review of systems was performed and is negative for pertinent findings except as documented above in the HPI. Family history reviewed and found non-contributory. - Constitutional Vitals: Temp Pulse Resp BP Pulse Ox 99.7 F H 89 16 129/76 99 10/03/18 22:00 10/03/18 22:00 10/03/18 22:00 10/03/18 22:00 10/03/18 22:00 Exam: Vitals: Reviewed General: Well-developed white male lying comfortably in bed in no acute distress. Skin: Pale, warm. HEENT: Moist mucous membranes. + conjunctivae pallor. Neck: Surgically resected right cervical lymph nodes with no inflammatory signs present but tenderness on palpation to the area. Chest: Normal thoracic expansion. Normal breath sounds. Clear to auscultation. Heart: Normal S1 & S2; rhythmic. No rubs or murmurs. Abdomen: Non-distended, soft and non-tender to palpation. No peritoneal reaction. Extremities: Right knee with surgical incision of TKA noted, swollen, tender to touch, not hot with hyperkeratotic skin growth on the posterior aspect. Active suppuration is noted from a 3 cm lesion. Neurological: Awake, alert and oriented to person, place and time. No focal deficits. Psych: Affect appropriate. Internal Med - H&P Results - Labs CBC & Chem 7: 10/03/18 22:37 10/03/18 22:37 Labs: Short CBC 10/03/18 Range/Units 22:37 WBC 14.9 H (4.3-11.1) K/mcL Hgb 9.3 L (12.9-16.9) g/dL Hct 31.0 L (37.5-50.1) % Plt Count 362 (140-400) K/mcL Neutrophils # 12.8 H (1.6-8.9) K/mcL BMP 10/03/18 22:37 Sodium 130 L Potassium 4.8 Chloride 101 Carbon Dioxide 27 BUN 17 Creatinine 0.93 Glucose 244 H Calcium 9.1 Cardiac Enzymes 10/03/18 Range/Units 22:37 Troponin I < 0.03 (< 0.04) ng/mL Liver Function 10/03/18 Range/Units 22:37 Total Bilirubin 0.3 (0.3-1.0) mg/dL Direct Bilirubin 0.0 (0.0-0.2) mg/dL AST 21 (13-39) Units/L ALT 16 (7-52) Units/L Alkaline Phosphatase 83 (34-104) Units/L Albumin 3.1 L (3.5-5.7) g/dL Urine 10/03/18 Range/Units 23:52 Urine Color Yellow (Yellow) Urine Clarity Clear (Clear) Urine pH 7.0 (5.0-8.0) pH Units Ur Specific [place] 1.011 (1.010-1.025) Urine Protein 30 H (Neg-Trace) mg/dL Urine Glucose (UA) 250 H (Normal) mg/dL - Impressions ITS Impressions Chest X-Ray 10/03/18 22:27 IMPRESSION: No acute cardiopulmonary findings. Scattered bilateral pulmonary nodules correlate with prior exam, with larger nodules stable to increased in size-altogether suspicious for thoracic metastatic disease. D/ / Joseph Soliman / Joseph Soliman Interpreting Provider: Joseph Soliman Head CT 10/03/18 22:28 IMPRESSION: No acute intracranial abnormality. D/ / Joseph Soliman / Joseph Soliman Interpreting Provider: Joseph Soliman - Assessment and plan (1) Altered mental status Current Visit: Yes Status: Acute Assessment and plan: Although it is a recurring episodes of, the etiology of this remains unclear. It is significantly transient and does not seem to have any inciting factors detected. Based on history obtained from the patient and his son, this has been going on for about 9 months. Her brain MRI was done 1 month ago due to this episode and did not show any metastatic lesions but rather just chronic small vessel ischemic changes. No arrhythmias detected on telemetry or EKG. Lab work grossly close to his baseline. No focal deficits on exam. He will remain observed to morning on telemetry to ensure that he remains at baseline and there are no recurrences. Qualifiers: Altered mental status type: transient alteration of awareness Qualified Code(s): R40.4 - Transient alteration of awareness (2) Head and neck cancer Current Visit: Yes Status: Chronic Assessment and plan: He is scheduled for chemotherapy and needs to fly to [place] today, expressing his wish to be discharged early if feasible and no issues are found so he can coordinate with the oncology team at [facility]. (3) Anemia Current Visit: Yes Status: Suspected Assessment and plan: Treatment of chronic disease and continued iron supplementation. Qualifiers: Anemia type: other cause Other causes of anemia: chronic disease, neoplastic Qualified Code(s): D63.0 - Anemia in neoplastic disease (4) Hyponatremia Current Visit: Yes Status: Chronic Assessment and plan: A chronic entity which the patient states is related to his constant drinking of water saying that his mouth feels dry at all times due to nerve damage on his neck from his prior surgery. He is not hypovolemic by any means on physical exam and his urine specific gravity demonstrates this. SIADH was also under consideration given his malignancy and lung disease as well as plethora of medications he is receiving. We will give a trial of normal saline for assessment. (5) Infection of right knee Current Visit: Yes Status: Suspected Assessment and plan: He is scheduled for [id number] amputation however his orthopedic [place] We shall provide wound care as needed. (6) DVT prophylaxis Current Visit: Yes Status: Acute Assessment and plan: SubQ heparin ordered. - Time Spent With Patient Total time spent is greater than 50% in coordination of care (as documented) at patient's floor/unit and/or counseling patient: Greater than 35 minutes
[2018-10-04] MEDS ORDERED: Dextrose Gel 15 GM/37.5 ML TUBE PO PRN ×2 (04:44)
[2018-10-04] MEDS ORDERED: *HR* Heparin 5,000 UNIT/ML VIAL SQ SCH (06:00)
[2018-10-04 09:15] LABS: BUN/Creatinine Ratio 20 (6-26); Blood Urea Nitrogen 16 mg/dL (8-23); Calcium 9.5 mg/dL (8.6-10.3); Carbon Dioxide 27 mEq/L (23-29); Chloride 96 mEq/L (98-107); Glucose 151 mg/dL (70-105); Osmolality,Calculated 276 (280-300); Potassium 4.2 mEq/L (3.5-5.1); Sodium 131 mEq/L (136-145); eGFR For Non-African Americans > 60 (> 60)
[2018-10-04] MEDS: Insulin LISPRO 300 UNITS/3 ML VIAL SQ SCH ×2 (09:38→12:29)
[2018-10-04 11:08] VITALS: BP 133/80
--- NOTE | 2018-10-04 14:10 | EEG/EMG/Oth Biometrics Report ---
EEG Procedure Report EEG Procedure: Routine EEG Procedure Note: This is a routine 21 channel digital EEG performed utilizing 10- 20 international electrode placement system. FINDINGS: Patient has a predominant waking background frequency that is average voltage 6 to 8 Hertz theta activity in the posterior region, low amplitude symmetrical over the both hemispheres reactive to eyes opening and closing record continued to show alpha activity intermixed with some theta off and on, during the study there are few spike wave discharges noted in right fronal leads, without any lateralizing abnormalities, though these are nonspecific findings but in context of episodic confusion could be the potential for nonconvulsive seizures, Photic stimulation did not produce any convulsive response. Intermittent EMG artifacts were noted. Stage II sleep was not achieved. Impression: This EEG demonstrated mild generalized slowing which is a nonspecific pattern mostly seen in patient with metabolic toxic encephalopathy at the same time can be seen in postictal state consistent with diffuse cortical dysfunction . At the same time there are few nonspecific spike and wave pattern noted though these are nonspecific finding but could be the potential for the seizures. No continuous seizure activity was recorded , recommend ambulatory versus prolonged EMU monitoring
--- NOTE | 2018-10-04 14:26 | Discharge Summary ---
- NOTES TO OUTPATIENT PROVIDER Notes to Outpatient Provider: f/u with PCP in one week. f/u with Heme Onc Dr. Nielsen at [place] as scheduled. Also please f/u with Ortho Pedic Surgeon at [place] regaridng your Rt knee infection / Ulcer. Orders not resulted at time of discharge: Pending orders 10/03/18 22:50 Culture,Blood [BC] Stat 10/04/18 10:35 Culture,Anaerobic [RM] Stat Culture,Wound [RM] Stat Date of Encounter: 10/04/18 Time of Encounter: 14:24 - Discharge Diagnosis (1) Acute metabolic encephalopathy Priority: Primary Status: Resolved (2) Altered mental status Priority: Primary Status: Acute Qualifiers: Altered mental status type: transient alteration of awareness Qualified Code(s): R40.4 - Transient alteration of awareness (3) Infection of right knee Priority: Secondary Status: Suspected (4) Anemia Priority: Secondary Status: Suspected Qualifiers: Anemia type: other cause Other causes of anemia: chronic disease, neoplastic Qualified Code(s): D63.0 - Anemia in neoplastic disease (5) DVT prophylaxis Priority: Secondary Status: Acute (6) Hyponatremia Priority: Secondary Status: Chronic (7) Head and neck cancer Priority: Secondary Status: Chronic Hospital course: Mr. Freed is a 72 year old male with a metastatic malignancy currently undergoing clinical trials at [facility] where he goes ever 2 weeks. He has been admitted here recently a couple of times, frequently seen to have transient episodes of confusion and unawareness with no inciting factors. 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 He had a brain MRI done a month ago which showed no metastatic lesions. He comes in again brought in by his son stating he had an episode where he was sitting in his chair, slumped over and was not responsive for a few minutes. Other than fatigue, no other complaints were reported by the patient. He was admitted in the hospital and placed him on residential monitor. He does not have any most couple episodes. His head CT came back is unremarkable. His altered mental status seems to be possible metabolic encephalopathy. I talked to his Hem oncologist Dr. Nielsen from [place], who mentioned he was concerned about possible seizure activity. He had EEG done on 09/02/18 which showed generalized encephalopathy no evidence of epileptiform activity. However I did repeat another EEG today which demonstrative mild generalized slowing which is nonspecific pattern mostly seen in patients with metabolic toxic encephalopathy at the same time can be seen in postictal state consistent with diffuse cortical dysfunction. Neurologist recommend an outpatient alf EEG as out pt. Arranged for out pt f/u with Neurology. He does have chronic open wound over Rt knee posteriorly. His ESR and CRP are severely elevated so started him on empirical abx PO Doxy and Augmentin. He does f/u with Orthopedician at [place] . [place] f[place]u with his Heme Onc for clinical trail chemo medication, also he is going to f/u with Orthopedician for possible surgery on rt knee. - Time Spent with Patient Total time spent providing and/or coordinating discharge services: - Discharge Medications Home Medications: DiphenhydraMINE [Benadryl] 25 mg PO HS 08/31/18 [History] Ferrous Sulfate [Iron] 650 mg PO DAILY 08/31/18 [History] Finasteride [Proscar] 5 mg PO HS 08/31/18 [History] Levothyroxine [Synthroid] 75 mcg PO DAILY 08/31/18 [History] Loratadine [Allergy Relief] 10 mg PO DAILY 08/31/18 [History] Naproxen [Naprosyn] 250 mg PO Q12H PRN 08/31/18 [History] Omeprazole [PriLOSEC] 20 mg PO DAILY 08/31/18 [History] predniSONE [PredniSONE] 5 mg PO DAILY 08/31/18 [History] Clobetasol Propionate 0.05% [Temovate] 1 appl TP DAILY PRN 10/01/18 [History] Dexamethasone [Decadron] 0.5 mg PO QID PRN 10/01/18 [History] Fluticasone Propionate Nasal [Flonase] 50 mcg NS DAILY 10/01/18 [History] Lisinopril [Zestril] 5 mg PO DAILY 10/01/18 [History] Magnesium Oxide [Magnesium] 400 mg PO BID 10/01/18 [History] Nystatin [Nystatin Suspension] 500,000 units PO QID PRN 10/01/18 [History] OxyCODONE/APAP 5/325 [Percocet 5/325 MG] 1 each PO Q6HR PRN 10/01/18 [History] Pregabalin [Lyrica] 150 mg PO BID 10/01/18 [History] Simvastatin [Zocor] 20 mg PO HS 10/01/18 [History] metFORMIN [Glucophage] 1,000 mg PO BIDWM 10/01/18 [History] Allergies/Adverse Reactions: Allergy/AdvReac Type Severity Reaction Status Date / Time No Known Allergies Allergy Verified 10/01/18 09:43 Date of admission: 10/04/18 02:53 Primary care physician: PCP NONE Consults: 10/04/18 13:30 Consult to Interpret Exam [CONS] Routine Consulting Provider: Belen Dewitt I Consult to Interpret Exam: Interpret EEG - Constitutional Vitals: Temp Pulse Resp BP Pulse Ox 97.4 F L 76 14 133/80 98 10/04/18 10:56 10/04/18 10:56 10/04/18 10:56 10/04/18 10:56 10/04/18 10:56 General appearance: Present: cooperative, A&O X 3, answers questions appropriately Exam: Gen: Alert, awake, Oriented to time,place and person Chest: Diminished breath sounds B/L, No wheezing, No crackles, No rales Heart: S1S2+ RRR No murmurs Abd: Soft, NT, BS +, No organomegaly Ext: Chronic swelling / edematous skin / Suq tissue over Rt knee , also noticed a open wound over popliteal fossa region. Warm to touch. Neuro : Benign findings Skin: No rash. - Patient Status Disposition: Home, Self-Care Condition: Good Overall status at discharge: patient is back to baseline - Discharge Instructions Follow Up With: NONE,PCP [Primary Care Provider] - - Diet and Activity Activity: increase activity as tolerated Diet: low salt diet
[2018-10-04] MEDS ORDERED: Doxycycline 100 MG CAPSULE PO SCH (14:30)
[2018-10-04] MEDS ORDERED: Insulin LISPRO 300 UNITS/3 ML VIAL SQ SCH (21:00)
--- NOTE | 2018-10-06 20:50 | Electrocardiograph Report ---
[place] [id number] Test Date: 2018-10-03 Pat Name: Saurav Freed Department: [id number] Room: 3B39 Gender: M Step Finisher: : 1945 Requested By: Romeo Villar Order Number: [id number] Reading MD: Johan Kendall Measurements Intervals [place] Rate: 87 P: 65 DE: 154 QRS: -7 QRSD: 91 T: 32 QT: 331 QTc: 396 Interpretive Statements Technically poor tracing - please repeat ECG Sinus rhythm Electronically Signed On 10-06-2018 20:48:27 EST by Johan Kendall
== END 2018-10-04 15:25 | disposition home or self-care (01) ==
LOC: 3BNU 21:48 → EMEROOARM 21:48 → SUATTDRO 10-04 02:53 → 3BNU 10-04 04:38
PROVIDERS: ADMIT Internal Medicine; ATTEND Family Medicine